=== PATIENT | female | born 1955 | race Hispanic/Latino ===

== ENCOUNTER 2018-03-01 13:17 | Inpatient (IN) | payer BC ==
[~2018-03-01] VITALS: Ht 152.4 cm; Wt 53.2 kg
[~2018-03-01 13:17] MED LIST: AZITHROMYCIN250 MG PO; CLONAZEPAM0.5 MG PO; CLONIDINE HCL0.1 MG PO; COREG12.5 MG PO; DIPHENHYDR12.5 MG/5 PO; HUMALOG; HYDRALAZINE HCL25 MG PO; Insulin Detemir SQ; LANTUS IV; LANTUS100 UNITS/ SC; LEVEMIR100 UNIT/1; LISINOPRIL10 MG PO; LISINOPRIL20 MG PO; NIFEDIPINE ER30 M1 PO; NIFEDIPINE ER60 M1 PO; SIMVASTATIN20 MG PO; TESSALON PERLE100 MG PO; Z.0.CLONAZEPAM1 MG PO; Z.2.METFORMIN HCL500 PO; [UNRECOGNIZED DRUG - OTHER] IV
[2018-03-01] MEDS ORDERED: SODIUM CHLORIDE 0.9% 1000ML 1,000 ML IV STA (13:19)
[2018-03-01] MEDS ORDERED: ONDANSETRON HCL INJ 2 MG/ML VIAL IV STA (13:19)
[2018-03-01] MEDS ORDERED: ASPIRIN 81 MG CHEW TAB PO ONE (13:30)
[2018-03-01 14:25] LABS: BASOPHILS % 0.3 % (0.0-1.0); EOSINOPHILS # (AUTO) 0.1 (0.0-0.4); EOSINOPHILS % 0.4 % (0.0-6.0); HEMATOCRIT 28.8 % (34.2-44.1); HEMOGLOBIN 9.7 g/dL (12.0-16.0); LYMPHOCYTES # (AUTO) 0.9 (1.0-3.2); LYMPHOCYTES % 7.4 % (18.0-39.1); MEAN CORPUSCULAR HEMOGLOBIN 32.6 pg (28-32); MEAN CORPUSCULAR HGB CONC 33.7 g/dL (31-35); MEAN CORPUSCULAR VOLUME 96.6 fL (81-99); MONOCYTES # (AUTO) 0.5 (0.2-0.8); MONOCYTES % 4.6 % (4.4-11.3); NEUTROPHILS % 86.8 % (38.7-80.0); PLATELET COUNT 228 x10e3/uL (140-360); RED BLOOD COUNT 2.98 x10e6/uL (3.6-5.1); RED CELL DISTRIBUTION WIDTH 13.9 % (11.7-14.4)
[2018-03-01] MEDS ORDERED: NICARDIPINE HCL SOLN 20 MG in SODIUM CHLORIDE 0.9% 250ML 200 ML IV STA (14:33)
[2018-03-01 14:36] LABS: INR 0.98; PROTHROMBIN TIME 13.9 seconds (11.9-14.5)
[2018-03-01] MEDS ORDERED: DILTIAZEM HCL VIAL 5 ML ONE (14:36)
[2018-03-01 14:37] LABS: PARTIAL THROMBOPLASTIN TIME 26.7 seconds (23.8-35.5)
[2018-03-01 14:47] LABS: ALBUMIN 3.9 g/dL (3.5-5.0); ALBUMIN/GLOBULIN RATIO 1.2 (0.8-2.0); ANION GAP 21.6 mmol/L (8-16); CREATININE, SERUM 3.86 mg/dL (0.57-1.11); MAGNESIUM 1.8 MG/DL (1.3-2.1); POTASSIUM 4.6 mmol/L (3.5-5.1)
[2018-03-01 14:49] LABS: CALCIUM 10.2 mg/dL (8.4-10.2)
[2018-03-01 15:10] LABS: CREATINE KINASE MB 1.3 ng/mL (0-5.0); THYROID STIMULATING HORMONE 1.362 uIU/mL (0.350-4.940)
--- NOTE | 2018-03-01 15:50 | Diagnostic Imaging Report ---
A single frontal view of the chest. HISTORY: Abdominal pain, nausea COMPARISON: Chest radiograph March 20, 2017 DISCUSSION: Portable technique, limits sensitivity of the exam. Multiple overlying monitoring leads and tubing. Soft tissue attenuation partially limits sensitivity of the exam. Tubes/Lines: Interval removal of the right approach dialysis catheter. Lungs and pleura: Diffusely increased pulmonary markings. No evidence of a consolidative pneumonia or pulmonary alveolar edema. No definite pleural effusion or pneumothorax is identified. Heart and mediastinum: The cardiac silhouette and central pulmonary vasculature appears enlarged. Bones: Diffusely decreased mineralization of the osseous structures limits bone detail. IMPRESSION: Findings compatible with volume overload resulting in central pulmonary vascular congestion and interstitial edema. Signed by: Dr. Puma Terrell D.O., M.M.M. on 03/01/2018 3:47 PM
[2018-03-01] MEDS ORDERED: PROMETHAZINE HCL (IM) 25 MG/ML VIAL IV PRN (16:15)
[2018-03-01] MEDS ORDERED: PROMETHAZINE 12.5MG/ NACL 0.9% 50 ML IV PRN (16:30)
--- NOTE | 2018-03-01 16:31 | Diagnostic Imaging Report ---
EXAMINATION: CT of the abdomen and pelvis with contrast. TECHNIQUE: Spiral CT images of the abdomen and pelvis were performed from the lung bases to the lesser trochanters after the intravenous administration of 100 cc of Isovue 370 and the oral administration of water. Coronal and sagittal reformatted images were obtained. COMPARISON: None. CLINICAL HISTORY:Abdominal pain, end-stage renal disease DISCUSSION: ABDOMEN/PELVIS: LOWER THORAX:Asymmetry of fibroglandular breast tissue left greater than right. Subsegmental atelectasis in the dependent portion of the lower lobes. Trace right pleural effusion. HEPATOBILIARY: 1.2 cm hyperattenuating lesion adjacent to the portal vein bifurcation (series 2 image 17); no additional focal hepatic lesion. Trace intrahepatic biliary ductal dilatation status post cholecystectomy. SPLEEN: No splenomegaly. PANCREAS: Subcentimeter low attenuating lesions in the pancreatic head may represent sidebranch IPMNs (coronal image 44 and 46). No peripancreatic inflammation. ADRENALS: No adrenal nodules. KIDNEYS/URETERS: No hydronephrosis, stones, or solid mass lesions. PELVIC ORGANS/BLADDER: The urinary bladder is unremarkable. The uterus is neutral in position with arcuate artery calcifications. No adnexal mass. PERITONEUM/RETROPERITONEUM: Trace free pelvic fluid average attenuation 15 Hounsfield units. No free air. LYMPH NODES: No pelvic sidewall, retroperitoneal, or mesenteric lymphadenopathy. VESSELS: The abdominal aorta, major branch vessels, and iliac arterial systems are patent with multifocal calcified and noncalcified atherosclerotic plaque. No aneurysmal dilatation. Portal vein, splenic vein, and central superior mesenteric vein are patent. GI TRACT: The large bowel is notable for scattered diverticula along the course of the sigmoid colon, without evidence of diverticulitis. The appendix is normal. There is no small bowel dilatation to suggest obstruction. BONES AND SOFT TISSUE: No focal soft tissue abnormalities. No osseous destructive lesions. IMPRESSION: No acute intra-abdominal or pelvic CT abnormalities. Trace pelvic ascites, likely reactive. Hyperattenuating lesion within the central liver likely represents a flash filling hemangioma. Definitive characterization with nonemergent CT of the abdomen with and without contrast (liver mass protocol) is suggested. Subcentimeter low-attenuation pancreatic lesions may represent cysts or side branch intraductal papillary mucinous neoplasia (IPMN). These lesions may also be further characterized by above recommended multiphase abdominal CT. Atherosclerotic vascular disease. Sigmoid diverticulosis without CT findings of diverticulitis. Asymmetry of fibroglandular breast tissue is likely due to patient positioning. Correlation with mammography is suggested if not recently performed. Signed by: Dr. Alhaji Rodriguez M.D. on 03/01/2018 4:28 PM
[2018-03-01 17:07] LABS: BILIRUBIN,URINE NEGATIVE (NEGATIVE); CLARITY,URINE CLEAR (CLEAR); COLOR,URINE YELLOW (YELLOW); KETONES,URINE 1+ (NEGATIVE); LEUKOCYTE ESTERASE ,URINE NEGATIVE (NEGATIVE); NITRITE,URINE NEGATIVE (NEGATIVE); PROTEIN,URINE DIPSTICK 3+ (NEGATIVE); URINE UROBILINOGEN 0.2 mg/dL (0.2 - 1)
[2018-03-01] MEDS ORDERED: HYDRALAZINE HCL 20 MG/ML VIAL IV PRN (17:15)
[2018-03-01 17:22] LABS: BACTERIA,URINE RARE /HPF; EPITHELIAL CELLS,URINE RARE /LPF
[2018-03-01] MEDS ORDERED: BENZONATATE 100 MG CAP PO PRN (17:30)
[2018-03-01] MEDS ORDERED: ACETAMINOPHEN 325 MG TAB PO PRN (17:45)
[2018-03-01] MEDS: LABETALOL HCL 5 MG/ML 20ML VIAL IV PRN (17:47)
--- NOTE | 2018-03-01 18:16 | History and Physical ---
HISTORY OF PRESENT ILLNESS: This is a 62-year-old female who has a past medical history positive for hypertension, diabetes, end-stage renal disease on dialysis. She came to the hospital complaining of vomiting. She was found to have new-onset atrial fibrillation with rapid ventricular response, which converted to sinus rhythm. Blood pressure was found to be extremely elevated in the 200 range. Patient was admitted to the hospital. The patient will have dialysis. REVIEW OF SYSTEMS CARDIOVASCULAR: No chest pain. She did have palpitations, which are resolved. RESPIRATORY: No shortness of breath. No cough. GASTROINTESTINAL: She had nausea and vomiting. No abdominal pain. No diarrhea. GENITOURINARY: No frequency. No dysuria. ALLERGIES: SHE IS NOT ALLERGIC TO ANY MEDICATION ACCORDING TO HER. PAST MEDICAL HISTORY: Positive for end-stage renal disease, diabetes, hypertension. SOCIAL HISTORY: She claims that she does not smoke and does not drink. PHYSICAL EXAMINATION HEART: Regular rhythm. Normal S1 and S2 sounds. LUNGS: Clear bilaterally. ABDOMEN: Soft. Nontender and nondistended. No visceromegaly. EXTREMITIES: No evidence of cyanosis, edema or trauma. VITALS: Blood pressure 164/60. Temperature 99.2. Heart rate is 68 per minute. Respiratory rate is [address] of the abdomen and pelvis showed the patient has no acute intra-abdominal or pelvic CT abnormalities. Trace pelvic ascites, likely reactive. Hyperattenuating lesion within the central liver likely representing a flash filling hemangioma. Definitive characterization with nonemergent CT of the abdomen with and without contrast is suggested. A 2-cm low-attenuation pancreatic lesion may represent side branch intraductal papillary mucinous neoplasia. The lesion may also be further characterized by the recommend multiphase abdominal CT. Atherosclerotic vascular disease. Sigmoid diverticulosis without diverticulitis. Asymmetric fibroglandular tissue is likely due to patient positioning. Correlation with mammography is suggested if not recently performed. On the chest x-ray, we have findings compatible with volume overload resulting in central pulmonary vascular congestion and interstitial edema. FINAL IMPRESSION 1. Atrial fibrillation with tachycardia which is resolved. 2. Uncontrolled diabetes mellitus, type 2, with end-stage renal disease. 3. End-stage renal disease on dialysis. 4. Vomiting. 5. Dialysis. PLAN OF TREATMENT: We are going to restart her on her home medications which include carvedilol 25 mg twice a day, clonidine 0.2 mg twice a day, hydralazine 100 mg 3 times a day. We are going to continue monitoring blood sugar a.c. and nightly. She is going to be on a diabetic and renal diet. She is going to be on promethazine 12.5 mg IV q.4 h. as needed for nausea and vomiting, labetalol 5 mg IV q.6 h. as needed for hypertension, lisinopril 40 mg daily, nifedipine 60 mg twice a day, simvastatin 20 mg daily, Zofran 4 mg IV q.4 h. as needed. We are going to consult Dr. De Jesus for cardiology. She is going to be on telemetry. We are going to order an echocardiogram and TSH for further evaluation of the episodes of atrial fibrillation. We are going to also get a renal consult with Dr. Tee because the patient is a dialysis patient. Gastroenterology consult with Dr. Haider Bravo because of the lesions in the liver and the pancreas. We are going to also do a CT of the abdomen with mass protocol. Job#: [id number]
[2018-03-01] MEDS ORDERED: HYDRALAZINE HCL 20 MG/ML VIAL IV ONE ×2 (19:17→19:30)
[2018-03-01] MEDS ORDERED: HUMALOG100 UNIT/3 SQ (20:50)
[2018-03-01] MEDS ORDERED: LEVEMIR100 UNIT/1 SQ (20:50)
[2018-03-01] MEDS ORDERED: CLONIDINE HCL0.2 MG PO (20:50)
[2018-03-01] MEDS: NIFEDIPINE CR 30 MG TAB PO SCH (20:51)
[2018-03-01] MEDS: SIMVASTATIN 20 MG TAB PO SCH (20:51)
[2018-03-01] MEDS: INSULIN LISPRO 100 UNIT/1 ML 3ML VIAL SQ SCH (21:00)
[2018-03-01] MEDS: HYDRALAZINE HCL 25 MG TAB PO SCH (21:31)
[2018-03-01] MEDS ORDERED: INSULIN REGULAR, HUMAN 100 UNIT/1 ML 3ML VIAL ONE (21:44)
[2018-03-01] MEDS ORDERED: DEXTROSE 50% SYRINGE 50 ML IV PRN (21:45)
[2018-03-01] MEDS: INSULIN REGULAR, HUMAN 100 UNIT/1 ML 3ML VIAL SQ SCH (21:46)
[2018-03-01 23:30] VITALS: BP 178/77
[2018-03-01 23:56] LABS: CREATINE KINASE MB 4.8 ng/mL (0-5.0)
[2018-03-02] VITALS (15 sets, daily range): BP systolic 130–206; BP diastolic 60–88
[2018-03-02 05:36] LABS: CHOL/HDL RATIO 2.7 (3.0-3.6)
[2018-03-02 05:49] LABS: CREATINE KINASE MB 2.8 ng/mL (0-5.0)
[2018-03-02] MEDS: ONDANSETRON HCL INJ 2 MG/ML VIAL IV PRN (05:49)
[2018-03-02] MEDS: LABETALOL HCL 5 MG/ML 20ML VIAL IV PRN (05:49)
[2018-03-02] MEDS: INSULIN LISPRO 100 UNIT/1 ML 3ML VIAL SQ SCH ×3 (07:30→21:00)
[2018-03-02] MEDS: HYDRALAZINE HCL 25 MG TAB PO SCH ×3 (08:29→21:00)
[2018-03-02] MEDS: LISINOPRIL 20 MG TAB PO SCH (08:30)
[2018-03-02] MEDS: NIFEDIPINE CR 30 MG TAB PO SCH ×2 (08:30→17:00)
[2018-03-02] MEDS: CARVEDILOL 12.5 MG TAB PO SCH ×2 (08:30→17:00)
[2018-03-02] MEDS ORDERED: NON-FORMULARY MEDICATION (Nifedipine (Nifedipine Er) 60 MG) PO SCH (09:00)
[2018-03-02] MEDS ORDERED: LISINOPRIL 10 MG TAB PO SCH (09:00)
[2018-03-02] MEDS ORDERED: CLONIDINE HCL 0.1 MG TAB PO SCH ×2 (09:00→14:00)
--- NOTE | 2018-03-02 09:29 | Consultation ---
DATE OF CONSULTATION: March 02, 2018 RENAL CONSULTATION REASON FOR CONSULTATION: End-stage renal disease. HISTORY OF PRESENT ILLNESS: A 62-year-old female with end-stage renal disease, hypertension, diabetes, who underwent hemodialysis on February 28, 2018, and was doing well until the day of admission when she developed nausea and vomiting. The patient was found to have atrial fibrillation with rapid ventricular rate, and was converted to sinus rhythm. The patient was admitted to the hospital, and this time she has no further palpitations, but continues to have nausea and anorexia. REVIEW OF SYSTEMS: As above. No chest pain. No shortness of breath. No swelling. No abdominal pain. All other systems negative. PAST MEDICAL HISTORY 1. End-stage renal disease, on hemodialysis on Monday, and Monday. 2. Diabetes. 3. Hypertension. PAST SURGICAL HISTORY 1. Left upper extremity AV fistula. 2. Bladder surgery. SOCIAL HISTORY: No tobacco. No alcohol. No IV drugs. FAMILY HISTORY: No family history of kidney disease. ALLERGIES: NO KNOWN DRUG ALLERGIES. CURRENT MEDICATIONS: See list. PHYSICAL EXAMINATION VITALS: Blood pressure 206/88, heart rate 81, respiratory rate 20, temperature 99.2. GENERAL: No apparent distress. HEENT: Oropharynx clear. No scleral icterus. No papilledema. NECK: Supple. No elevation of jugular venous pressure. No lymphadenopathy. CHEST: Clear to auscultation anteriorly bilaterally. CARDIOVASCULAR: Regular rate and rhythm. No murmurs, rubs or gallops. ABDOMEN: Soft. Positive bowel sounds. No tenderness. No rebound. EXTREMITIES: No edema. No clubbing. No cyanosis. SKIN: Warm. LABS: White count 11.49, hemoglobin 9.7, hematocrit 28.8, and platelets 228,000. Sodium 133, potassium 4.6, chloride 96, BUN 24, creatinine 3.86. ASSESSMENT AND PLAN 1. End-stage renal disease: Will plan for hemodialysis in the morning and continue Monday, and Monday. 2. Anemia secondary to chronic kidney disease: Will start Epogen. 3. Hypertension: Blood pressure is elevated. Will give morning meds now. Change clonidine to q.8 h. 4. Nausea and vomiting: Gastroenterology has been consulted. 5. Atrial fibrillation with rapid ventricular response: Per cardiology. The patient is back in sinus rhythm. Job#: [id number] RI
[2018-03-02] MEDS ORDERED: HEPARIN 25,000 UNIT/D5W 250ML 250 ML IV SCH (10:30)
--- NOTE | 2018-03-02 11:01 | Consultation ---
DATE OF CONSULTATION: March 02, 2018 CARDIOLOGY CONSULTATION REASON FOR CONSULTATION: Atrial fibrillation with rapid ventricular response. HISTORY OF PRESENT ILLNESS: This is a 62-year-old woman with a history of diabetes mellitus, hypertension, and end-stage renal disease, on hemodialysis, who presents with complaints of nausea and vomiting. The patient states she was in her usual state of health until Monday when she developed nausea and vomiting. She was unable to tolerate any significant oral intake. Her symptoms worsened yesterday, so she presented to the ER for further evaluation. The patient denies any chest pain or shortness of breath, but does note she began developing palpitations yesterday. She denied any edema, orthopnea, PND, or lightheadedness. She only has shortness of breath when prior to dialysis. REVIEW OF SYSTEMS: Negative except as per HPI. PAST MEDICAL HISTORY: Diabetes mellitus, hypertension, end-stage renal disease, on hemodialysis on Monday, and Monday. PAST SURGICAL HISTORY: Cholecystectomy, left upper extremity AV fistula, bladder surgery. ALLERGIES: NO KNOWN DRUG ALLERGIES. MEDICATIONS: Please see MAR. SOCIAL HISTORY: No tobacco, alcohol or illicit drugs. FAMILY HISTORY: Pertinent for sister with myocardial infarction. PHYSICAL EXAMINATION VITALS: Temperature 100.8 degrees, pulse 81, respiratory rate 14, blood pressure 108/74, oxygen saturation 96% on room air. GENERAL: A well-developed, well-nourished woman in no acute distress. HEENT: Normocephalic and atraumatic. Pupils equal. No scleral icterus. NECK: Supple. No thyromegaly or cervical lymphadenopathy. No carotid bruits. LUNGS: Crackles in bilateral bases. Otherwise, clear to auscultation. CARDIOVASCULAR: Normal rate. Regular rhythm. No murmur. Normal S1 and S2. ABDOMEN: Soft and nontender. EXTREMITIES: No edema. NEURO: Nonfocal exam. LABS: WBC 11.49, hemoglobin 9.7, hematocrit 28.8, and platelets 228,000. Sodium 138, potassium 4.6, chloride 96, CO2 25, BUN 24, creatinine 3.86. Troponin 3.397. Cholesterol 147, triglycerides 134, LDL 66, HDL 54. EKG #1 AFib with RVR. Marked S/T abnormality. Possible inferolateral subendocardial injury. EKG #2 is sinus rhythm with nonspecific S/T and T-wave abnormalities. IMPRESSION 1. [id number] myocardial infarction. 2. Paroxysmal atrial fibrillation with rapid ventricular response. 3. Nausea and vomiting. 4. End-stage renal disease, on hemodialysis. 5. Hypertension. 6. Diabetes mellitus. RECOMMENDATIONS: The patient will be made n.p.o. Cardiac catheterization this afternoon. Echocardiogram has been ordered and is pending. Discontinue nifedipine. We will start diltiazem instead for rate control if her echocardiogram is normal. Volume management per nephrology given end-stage renal disease. She would likely benefit from further ultrafiltration. Heparin drip in the meantime. The patient will need to be started on anticoagulation for CVA prophylaxis after cardiac catheterization has been done. Monitor the patient on telemetry in the meantime. Thank you for this consult. We will continue to follow. Job#: [id number] BRADLEY FRIEDMAN
[2018-03-02] MEDS: INSULIN REGULAR, HUMAN 100 UNIT/1 ML 3ML VIAL SQ SCH (11:30)
[2018-03-02 11:41] LABS: HEMATOCRIT 26.1 % (34.2-44.1); HEMOGLOBIN 8.7 g/dL (12.0-16.0); MEAN CORPUSCULAR HEMOGLOBIN 32.7 pg (28-32); MEAN CORPUSCULAR HGB CONC 33.3 g/dL (31-35); MEAN CORPUSCULAR VOLUME 98.1 fL (81-99); PLATELET COUNT 219 x10e3/uL (140-360); RED BLOOD COUNT 2.66 x10e6/uL (3.6-5.1); RED CELL DISTRIBUTION WIDTH 14.7 % (11.7-14.4)
[2018-03-02 11:48] LABS: INR 1.09; PROTHROMBIN TIME 15.1 seconds (11.9-14.5)
[2018-03-02 11:49] LABS: PARTIAL THROMBOPLASTIN TIME 28.1 seconds (23.8-35.5)
[2018-03-02 13:17] LABS: LYMPHOCYTES % (MANUAL) 13 % (19-48); MONOCYTES % (MANUAL) 7 % (3.4-9.0); NEUTROPHILS % (MANUAL) 80 % (40-74)
[2018-03-02 13:18] LABS: ANISOCYTOSIS SLIGHT; HYPOCHROMASIA SLIGHT; PLATELET ESTIMATE ADEQUATE; PLATELET MORPHOLOGY COMMENT NORMAL; RBC MORPHOLOGY COMMENT NORMAL
[2018-03-02] MEDS ORDERED: CLONIDINE HCL 0.2 MG TAB PO SCH ×2 (14:00→22:00)
[2018-03-02 14:27] LABS: CREATINE KINASE MB 1.4 ng/mL (0-5.0)
[2018-03-02] MEDS ORDERED: DEXTROSE 50% SYRINGE 50 ML IV PRN ×2 (16:45)
[2018-03-02] MEDS ORDERED: MIDAZOLAM HCL 2 MG/2 ML VIAL ONE (17:36)
[2018-03-02] MEDS ORDERED: IOPAMIDOL 370 MG/ML 200 ML INFUS..BTL INJ ONE (17:36)
[2018-03-02] MEDS ORDERED: LIDOCAINE HCL 2% LOCAL 20 ML VIAL ONE (17:36)
[2018-03-02] MEDS ORDERED: HEPARIN SOD/SOD CHLORIDE 2,000 ML ONE (17:36)
[2018-03-02] MEDS ORDERED: FENTANYL CITRATE/PF 100MCG/2 ML INJ ONE (17:36)
[2018-03-02] MEDS ORDERED: SODIUM CHLORIDE 0.9% 1000ML 1,000 ML ONE (17:37)
--- NOTE | 2018-03-02 18:32 | Progress Note ---
DATE: INTERNAL MEDICINE PROGRESS NOTE SUBJECTIVE: Patient came here with atrial fibrillation with rapid ventricular response. Troponins are high. She is going to have a cardiac cath by Dr. De Jesus today. PHYSICAL EXAM VITAL SIGNS: Blood pressure 144/65, temperature 98.9, heart rate 75 per minute, respiratory rate 18 per minute. HEART: Regular rhythm. Normal S1, S2 sounds. LUNGS: Clear bilaterally. ABDOMEN: Soft. EXTREMITIES: Show no evidence of cyanosis or hematoma. BLOOD WORK: CBC with white blood count 12.19, hemoglobin 8.7, hematocrit 26.1, platelet count 219,000. On the blood glucose 148, troponin is elevated at 2.881. On the complete metabolic panel; sodium 138, potassium 4.6, chloride 96, CO2 25, BUN 24, creatinine 3.86, and glucose 309. MEDICATION: The patient is taking also the following medications 1. Heparin drip. 2. Promethazine 12.5 mg IV q.4 hours as needed. 3. Tylenol 625 mg q.4 hours as needed for pain or fever. 4. Tessalon 200 mg 3 times a day as needed for cough. 5. Carvedilol 25 mg twice a day. 6. Clonidine 0.2 mg q.8 hours. 7. Continue with Epogen 5000 units on Tuesdays, , and Saturdays. 8. Continue with hydralazine 100 mg 3 times a day. 9. Continue monitoring blood sugar a.c. and h.s. 10. Continue labetalol 5 mg IV q.6 hours as needed for hypertension. 11. Lisinopril 40 mg daily. 12. Nifedipine 60 mg twice a day. 13. Zofran 4 mg IV q.4 hours as needed. 14. Simvastatin 20 mg at bedtime. 15. We are going to also start her on aspirin 81 mg daily. FINAL IMPRESSION 1. Atrial fibrillation with rapid ventricular response of new onset. 2. Elevated troponins rule out myocardial infarction. 3. End-stage renal disease, on dialysis. 4. Uncontrolled diabetes mellitus type 2 with end-stage renal disease. 5. He is on dialysis. 6. Hypertension with end-stage renal disease. 7. Vomiting, which is resolved. PLAN OF TREATMENT: Cardiac cath today and continue rest of medication with hemodialysis. Also she does have lesions in the liver and the pancreas, which are going to be investigated a little more. Dr. Haider Bravo gastroenterology has been consulted on the case for those lesions and we are going to later on determine if what type of lesion she has right now. We are going to do the cardiac cath just to make sure she does not have any evidence of any coronary artery disease. I just communicate with the patient with at the bedside. Job#: [id number] BELINDA
--- NOTE | 2018-03-02 19:08 | Operative Report ---
DATE OF PROCEDURE: March 02, 2018 INDICATION: Non-ST segment elevation myocardial infarction. PROCEDURES PERFORMED 1. Left heart catheterization, selective coronary angiography. 2. Percutaneous transluminal coronary angioplasty and stent placement to the mid left anterior descending artery. 3. Deployment of right groin Angio-Seal. COMPLICATIONS: None. RECOMMENDATIONS : Dual-antiplatelet therapy for at least 1 year, AFib workup. PROCEDURE IN DETAIL: Access obtained in the right femoral artery. A 6-[place] sheath was placed. 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 Mid left anterior descending artery tubular 70% stenosis, circumflex mild disease. A decision was made to intervene on the left anterior descending artery. Patient received 6000 units of intravenous heparin as well as oral Brilinta and intracoronary Integrilin bolus. Left main was cannulated using an XP 3.06-[place] Citizen guiding catheter. A short run-through wire was passed across the lesion for support, primary stent, 2.5 x 22 mm Resolute Festus at 20 atmospheres. Excellent end result, less than 10% residual stenosis, EDIS III flow, no complications. Right groin sheath was repaired using an Angio-Seal. Patient was passed from operative floor in stable condition. Job#: [id number] PKU
[2018-03-02] MEDS ORDERED: NON-FORMULARY MEDICATION (Insulin Detemir (Levemir) 20 UNITS) SQ SCH (21:00)
[2018-03-02] MEDS ORDERED: INSULIN LISPRO 100 UNIT/1 ML 3ML VIAL SQ SCH (21:00)
[2018-03-02] MEDS: SIMVASTATIN 20 MG TAB PO SCH (21:00)
[2018-03-02] MEDS: INSULIN DETEMIR 100 UNIT/ML PEN SQ SCH (21:00)
[2018-03-02] MEDS: CLONIDINE HCL 0.1 MG TAB PO SCH (22:00)
[2018-03-03 04:30] VITALS: BP 184/75
[2018-03-03 05:33] LABS: BASOPHILS # (AUTO) 0.1 (0.0-0.1); BASOPHILS % 0.5 % (0.0-1.0); EOSINOPHILS # (AUTO) 0.1 (0.0-0.4); EOSINOPHILS % 1.1 % (0.0-6.0); HEMATOCRIT 26.1 % (34.2-44.1); HEMOGLOBIN 8.5 g/dL (12.0-16.0); LYMPHOCYTES # (AUTO) 1.2 (1.0-3.2); LYMPHOCYTES % 10.3 % (18.0-39.1); MEAN CORPUSCULAR HGB CONC 32.6 g/dL (31-35); MEAN CORPUSCULAR VOLUME 98.1 fL (81-99); MONOCYTES # (AUTO) 1.4 (0.2-0.8); MONOCYTES % 12.3 % (4.4-11.3); NEUTROPHILS # (AUTO) 8.5 (2.1-6.9); NEUTROPHILS % 75.2 % (38.7-80.0); PLATELET COUNT 205 x10e3/uL (140-360); RED BLOOD COUNT 2.66 x10e6/uL (3.6-5.1); RED CELL DISTRIBUTION WIDTH 15.2 % (11.7-14.4)
[2018-03-03 05:53] LABS: ALBUMIN 3.1 g/dL (3.5-5.0); ALBUMIN/GLOBULIN RATIO 1.2 (0.8-2.0); ANION GAP 18.1 mmol/L (8-16); CALCIUM 9.1 mg/dL (8.4-10.2); CREATININE, SERUM 7.18 mg/dL (0.57-1.11); POTASSIUM 4.1 mmol/L (3.5-5.1)
[2018-03-03] MEDS: CLONIDINE HCL 0.1 MG TAB PO SCH ×3 (05:57→21:07)
[2018-03-03] MEDS ORDERED: NON-FORMULARY MEDICATION (Insulin Lispro (Humalog) 8 UNITS) SQ SCH (07:30)
[2018-03-03] MEDS: INSULIN LISPRO 100 UNIT/1 ML 3ML VIAL SQ SCH ×7 (07:30→20:53)
[2018-03-03 07:54] VITALS: BP 159/65
[2018-03-03 08:27] VITALS: BP 159/65
[2018-03-03] MEDS: TICAGRELOR 90 MG TABLET PO SCH ×2 (09:00→21:06)
[2018-03-03] MEDS: NIFEDIPINE CR 30 MG TAB PO SCH ×2 (09:00→17:42)
[2018-03-03] MEDS: LISINOPRIL 20 MG TAB PO SCH (09:00)
[2018-03-03] MEDS ORDERED: ASPIRIN 325 MG TAB PO SCH (09:00)
[2018-03-03] MEDS: CARVEDILOL 12.5 MG TAB PO SCH ×2 (09:00→17:42)
[2018-03-03] MEDS ORDERED: EPOETIN ALFA 10000 UNIT/ML VIAL SC SCH (09:00)
[2018-03-03] MEDS: HYDRALAZINE HCL 25 MG TAB PO SCH ×3 (09:00→21:07)
[2018-03-03] MEDS: ASPIRIN 81 MG CHEW TAB PO SCH (09:00)
[2018-03-03 11:45] VITALS: BP 195/83
[2018-03-03] MEDS: LABETALOL HCL 5 MG/ML 20ML VIAL IV PRN (12:15)
--- NOTE | 2018-03-03 13:48 | Diagnostic Imaging Report ---
EXAM: CT Abdomen and Pelvis WITHOUT and WITH contrast INDICATION: Abnormal CT scan \S\LIVER/PANCREOUS PROTOCOL, PT TO HAVE DIALYSIS AFTER PROCEDU \S\[id number] \S\1225 \S\N COMPARISON: CT 03/01/2018 TECHNIQUE: Abdomen and pelvis were scanned utilizing a multidetector helical scanner from the lung base to the pubic symphysis before and after administration of IV contrast. Coronal and sagittal reformations were obtained. Liver mass protocol was performed. Scan was performed pre-, arterial, portal venous, and 5 minute delayed phase. IV CONTRAST: 100 mL of Isovue-370 ORAL CONTRAST: Gastrografin COMPLICATIONS: None RADIATION DOSE: Total DLP: 527.2 mGy*cm Estimated effective dose: (DLP x 0.015 x size factor) mSv CTDIvol has been reviewed. It is below the limits set by the Radiation Protocol Committee (RPC). FINDINGS: LINES and TUBES: None. LOWER THORAX: Mild dependent atelectasis. HEPATOBILIARY: Previously noted hyperattenuating liver lesion is not appreciated. Finding suggests the previous lesion represented a perfusional abnormality. No focal hepatic lesions. No biliary ductal dilation. GALLBLADDER: Absent SPLEEN: No splenomegaly. PANCREAS: A 4 mm cystic bulge of the pancreatic duct in the head may represent a sidebranch IPMN (series 3 image 18). No focal solid masses or ductal dilatation. ADRENALS: No adrenal nodules KIDNEYS/URETERS: Kidneys enhance symmetrically. No hydronephrosis. No cystic or solid mass lesions. No stones. GI TRACT: No abnormal distention, wall thickening, or evidence of bowel obstruction. Increased circumferential wall thickening of the duodenum and ascending colon. Sigmoid colonic diverticula without evidence of diverticulitis. Appendix is normal. PELVIC ORGANS/BLADDER: Unremarkable. LYMPH NODES: No lymphadenopathy. VESSELS: There is moderate atherosclerotic disease in the aorta and major arterial branches. PERITONEUM / RETROPERITONEUM: No free air or fluid. BONES: There are degenerative changes in the lumbar spine. SOFT TISSUES: Asymmetric prominence of the left breast soft tissues. IMPRESSION: 1. No liver lesions. 2. Increased duodenal and ascending colonic wall thickening, likely infectious or inflammatory. 3. Stable subcentimeter low attenuating pancreatic lesion in the head may represent a sidebranch IPMN. Recommend follow up MRI in 12 months. 4. Asymmetric prominence of the left breast soft tissues. Recommend correlation with mammogram. Signed by: DR. José House MD on 03/03/2018 1:45 PM
--- NOTE | 2018-03-03 15:11 | Progress Note ---
DATE: INTERNAL MEDICINE PROGRESS NOTE SUBJECTIVE: Patient is doing well. PHYSICAL EXAMINATION VITAL SIGNS: Blood pressure 195/83, temperature 97.2, heart rate 66 per minute, respiratory rate is 14 per minute, oxygen saturation 100%. HEART: Regular rhythm. Normal S1, S2 sounds. LUNGS: Clear bilaterally. ABDOMEN: Soft. EXTREMITIES: Show no evidence of cyanosis, edema, or trauma. LABORATORY DATA: On the BMP; sodium 137, potassium 4.1, chloride 95, CO2 of 28, BUN 49, creatinine 7.18, glucose 55. On the CBC; white blood count 11,200, hemoglobin 8.5, hematocrit 26.1, platelet count 205,000. PT 15.1, PTT 28.1, INR is 1.09. AST 36, ALT 24, total bilirubin 0.5, alkaline phosphatase 128. Patient did have a cardiac catheterization, which showed carotid stenosis on one of the branches of LAD. She had a stent placed there by Dr. De Jesus. FINAL IMPRESSION 1. Coronary artery disease with unstable angina. 2. Atrial fibrillation with tachycardia. 3. Uncontrolled diabetes mellitus type 2 with end-stage renal disease. 4. End-stage renal disease, on dialysis. 5. Uncontrolled hypertension with end-stage renal disease. 6. Vomiting, which is resolving. 7. Dialysis. PLAN OF TREATMENT: Continue promethazine q.4 hours as needed for vomiting along with Zofran 4 mg IV q.4 hours as needed, Tessalon 200 mg 3 times a day, carvedilol 25 mg twice a day, nifedipine 60 mg twice a day. Continue monitoring blood sugar a.c. and h.s. Continue diabetic renal diet. Continue Humalog 8 units before meals. Continue with simvastatin 20 mg daily, labetalol 5 mg IV q.6 hours as needed for hypertension and 50 IV push as needed for hypoglycemia, aspirin 81 mg daily, hydralazine 100 mg 3 times a day, Hytrin 10 mg daily because of uncontrolled hypertension. Continue also Tylenol 325 mg q.4 hours as needed for pain or fever, clonidine 0.1 mg q.8 hours as needed for hypertension, ticagrelor 90 mg p.o. twice a day, lisinopril 40 mg daily, Epogen 5000 units on Monday, , and Monday on dialysis days, and finally Levemir 20 units at bedtime. Job#: [id number] PKU
[2018-03-03 16:47] VITALS: BP 194/84
[2018-03-03] MEDS ORDERED: SODIUM CHLORIDE 0.9% 50ML 50 ML ONE (19:49)
[2018-03-03] MEDS ORDERED: IOPAMIDOL 370 MG/ML 200 ML INFUS..BTL INJ ONE (19:50)
[2018-03-03] MEDS: ONDANSETRON HCL INJ 2 MG/ML VIAL IV PRN (19:59)
[2018-03-03 20:46] VITALS: BP 197/80
[2018-03-03] MEDS: INSULIN DETEMIR 100 UNIT/ML PEN SQ SCH (20:53)
[2018-03-03] MEDS ORDERED: TERAZOSIN HCL 5 MG CAP PO SCH (21:00)
[2018-03-03] MEDS: SIMVASTATIN 20 MG TAB PO SCH (21:07)
[2018-03-03] MEDS ORDERED: PANTOPRAZOLE 40 MG 10ML VIAL IV STA (23:41)
[2018-03-04] VITALS: BP 197/80
[2018-03-04 01:37] VITALS: BP 109/55
[2018-03-04 05:23] LABS: BASOPHILS % 0.3 % (0.0-1.0); EOSINOPHILS % 0.4 % (0.0-6.0); HEMATOCRIT 24.2 % (34.2-44.1); HEMOGLOBIN 8.1 g/dL (12.0-16.0); LYMPHOCYTES # (AUTO) 0.8 (1.0-3.2); MEAN CORPUSCULAR HEMOGLOBIN 32.8 pg (28-32); MEAN CORPUSCULAR HGB CONC 33.5 g/dL (31-35); MONOCYTES # (AUTO) 1.1 (0.2-0.8); MONOCYTES % 10.9 % (4.4-11.3); NEUTROPHILS % 79.8 % (38.7-80.0); PLATELET COUNT 200 x10e3/uL (140-360); RED BLOOD COUNT 2.47 x10e6/uL (3.6-5.1); RED CELL DISTRIBUTION WIDTH 15.2 % (11.7-14.4)
[2018-03-04] MEDS: CLONIDINE HCL 0.1 MG TAB PO SCH (05:53)
[2018-03-04 05:54] VITALS: BP 160/72
[2018-03-04] MEDS: INSULIN LISPRO 100 UNIT/1 ML 3ML VIAL SQ SCH ×4 (07:30→12:12)
[2018-03-04 08:54] VITALS: BP 173/75
[2018-03-04] MEDS ORDERED: PANTOPRAZOLE 40 MG 10ML VIAL IV SCH (09:00)
[2018-03-04] MEDS ORDERED: TICAGRELOR 90 MG TABLET PO SCH (09:00)
[2018-03-04] MEDS: NIFEDIPINE CR 30 MG TAB PO SCH (09:00)
[2018-03-04] MEDS: TICAGRELOR 90 MG TABLET PO SCH (09:09)
[2018-03-04] MEDS: ASPIRIN 81 MG CHEW TAB PO SCH (09:09)
[2018-03-04] MEDS: CARVEDILOL 12.5 MG TAB PO SCH (09:09)
[2018-03-04] MEDS: LISINOPRIL 20 MG TAB PO SCH (09:09)
[2018-03-04] MEDS: HYDRALAZINE HCL 25 MG TAB PO SCH (09:09)
--- NOTE | 2018-03-04 09:52 | Progress Note ---
DATE: March 03, 2018 CARDIOLOGY PROGRESS NOTE SUBJECTIVE: Patient is without any complaint. She does endorse some fatigue; however, feeling better this morning. She endorses some shortness of breath upon exertion, but otherwise denies any chest pain or palpitations. OBJECTIVE VITAL SIGNS: Temperature 97.6, pulse 73, respiratory rate 18, blood pressure 197/80, oxygen saturation 100% on 2 liters nasal cannula. GENERAL: Alert and oriented x3, resting comfortably in bed, does not appear to be in any acute distress. NECK: Supple. No JVD noted. LUNGS: Diminished breath sounds posterior lower lobes with fine crackles. CARDIOVASCULAR: Regular rate and rhythm. No murmurs. Normal S1, S2. ABDOMEN: Soft, nontender. EXTREMITIES: Lower extremities, no edema. CARDIOVASCULAR MEDICATIONS 1. Clonidine 0.1 mg p.o. q.8 hours. 2. Simvastatin 20 mg p.o. h.s. 3. Hydralazine 100 mg p.o. t.i.d. 4. Nifedipine 60 p.o. b.i.d. 5. Coreg 25 p.o. b.i.d. 6. Labetalol 5 mg q.6 hours p.r.n. for hypertension. 7. Aspirin 81 mg p.o. daily. 8. Lisinopril 40 mg p.o. daily. LABS: WBC 11.27, hemoglobin 8.5, hematocrit 26.6, platelets 205. Sodium 137, potassium 4.1, BUN 49, creatinine 7.18, glucose 55. AST 36, ALT 24, albumin 3.1, total cholesterol 142, LDL 59. CT of the abdomen from 03/03/2018 with no liver lesion and increased duodenal and ascending colonic wall thickness, likely infectious or inflammatory, stable subcentimeter low attenuation pancreatic lesion in the head, may represent side branch of IPMN. Recommend an MRI in 12 months. Asymmetric prominence of the left breast soft tissue, recommend correlation with a mammogram. IMPRESSION 1. Non-ST elevation myocardial infarction, status post left heart catheterization on 03/02/2018 with an left anterior descending stent. 2. Coronary artery disease. 3. Paroxysmal atrial fibrillation with rapid ventricular response. 4. Nausea and vomiting. 5. End-stage renal disease, on hemodialysis. 6. Hypertension. 7. Diabetes mellitus. RECOMMENDATIONS: Continue with the above-listed cardiac medication. Recent echocardiogram revealed left ventricular ejection fraction of 71% with left atrium enlargement and moderate mitral regurgitation and moderate tricuspid regurgitation, left ventricular systolic pressures of 40.78. Continue hemodialysis and volume management per bending machine operator. Patient will need long-term monitoring as outpatient. Consider internal loop recorder. Continue with dual-antiplatelet therapy. Medications adjusted and Brilinta added to the medications above. Monitor blood pressure closely. Will need follow up with cardiology in 1 week upon discharge. We will continue to monitor very closely. Dictated by: Homa Payan NP Job#: [id number] [facility]
[2018-03-04 10:30] VITALS: BP 173/75
--- NOTE | 2018-03-04 12:16 | Progress Note ---
DATE: CARDIOLOGY PROGRESS NOTE SUBJECTIVE: Patient is without any new complaints this morning. She states that she feels a lot better. Does endorse some shortness of breath especially with exertion. Denies any chest pain. OBJECTIVE VITAL SIGNS: Temperature 99.0, pulse 70, respiratory rate 18, blood pressure 172/75, oxygen saturation 99% on 2 liters nasal cannula. GENERAL: Alert and oriented x3, resting comfortably in bed, does not appear to be in any acute distress. NECK: Supple. No JVD noted. CARDIOVASCULAR: Regular rate and rhythm. Diastolic murmur present. Normal S1, S2. S4 noted. LUNGS: Diminished breath sounds posterior lower lobes. No crackles. ABDOMEN: Soft, nontender. LOWER EXTREMITIES: No edema. CARDIOVASCULAR MEDICATIONS 1. Aspirin 81 mg p.o. daily. 2. Lisinopril 40 p.o. daily. 3. Hydralazine 100 mg p.o., t.i.d. 4. Coreg 25 p.o., b.i.d. 5. Clonidine 0.1 p.o., q.8 hours. 6. Simvastatin 20 mg p.o., h.s. 7. Labetalol 5 mg every 6 hours IV push for hypertension. 8. Nifedipine 60 mg p.o., b.i.d. LABS: WBC 10, hemoglobin 8.1, hematocrit 24.2, platelets 200. IMPRESSION 1. Non-ST elevation myocardial infarction, status post left heart cath on March 02, with a left anterior descending artery stent. 2. Coronary artery disease. 3. Paroxysmal atrial fibrillation with rapid ventricular response, remains in sinus rhythm at this time. 4. Nausea and vomiting. 5. End-stage renal disease, on hemodialysis. 6. Hypertension, uncontrolled. 7. Diabetes mellitus. RECOMMENDATIONS: Continue with the above-listed cardiac medications. Antihypertensives adjusted. Once blood pressure is improved, patient may be discharge with follow up with cardiology in the next one week. Continue hemodialysis. Patient will need a long-term monitoring as outpatient, consider internal loop recorder. Continue dual-antiplatelet therapy. Brilinta added twice a day. We will continue to follow this patient very closely. Dictated by: Homa Payan NP Job#: [id number] [facility]
[2018-03-04 12:18] VITALS: BP 144/63
[2018-03-04] MEDS ORDERED: ZOCOR20 MG PO (13:29)
[2018-03-04] MEDS ORDERED: TERAZOSIN HCL10 MG (13:30)
[2018-03-04] MEDS ORDERED: NIFEDIPINE ER30 M1 PO (13:31)
[2018-03-04] MEDS ORDERED: ASPIRIN81 MG (13:31)
[2018-03-04] MEDS ORDERED: BRILINTA90 MG (13:32)
[2018-03-04] MEDS ORDERED: CLONIDINE HCL 0.1 MG TAB PO SCH (14:00)
--- NOTE | 2018-03-05 04:37 | Discharge Summary ---
HOSPITAL COURSE: A 62-year-old female with past medical history positive for end-stage renal disease on dialysis, diabetes mellitus, and hypertension. Patient came with nausea and vomiting and also new onset atrial fibrillation with rapid ventricular response. Patient had a cardiac cath done by Dr. De Jesus because of elevated troponins and she was found to have a lesion in one of the branches of LAD. A stent was placed. Patient also was having high blood pressure. Blood pressure is better now. She was found to have some atypical very tiny lesions in the pancreas. Dr. Haider Bravo saw the patient from the gastroenterology point of view, and he recommended an MRI and MRCP in 1 year. PHYSICAL EXAM VITAL SIGNS: Blood pressure is 173/75, temperature 99.0, heart rate 70 per minute, respiratory rate 18 per minute, and oxygen saturation 99%. HEART: Regular rhythm. Normal S1 and S2 sounds. LUNGS: Clear bilaterally. ABDOMEN: Soft. EXTREMITIES: No evidence of cyanosis or trauma. LABS: On the BMP: Sodium 137, potassium 4.1, chloride 95, CO2 of 28, BUN 49, creatinine 7.18, and glucose 55. CBC: White blood count 10.0, hemoglobin 8.1, hematocrit 24.2, and platelet count 200,000. PT 15.1, INR 1.09, and PTT 28.1. AST 36, ALT 24, total bilirubin 0.5, and alkaline phosphatase 128. FINAL IMPRESSION 1. Coronary artery disease, status post stent placement. 2. Uncontrolled hypertension with end-stage renal disease. 3. Diabetes mellitus type 2 with end-stage renal disease. 4. End-stage disease, on dialysis. 5. Anemia chronic disease secondary to chronic renal failure. 6. Gastroesophageal reflux disease. 7. Status post atrial fibrillation with rapid ventricular response, in sinus rhythm. PLAN OF TREATMENT: Patient is going to be going home with carvedilol 25 mg twice a day, nifedipine 60 mg twice a day, aspirin 81 mg daily, ticagrelor 90 mg twice a day, and simvastatin 20 mg daily. She is going to continue with hydralazine 100 mg 3 times a day, Levemir 20 units at bedtime, terazosin 10 mg at bedtime, lisinopril 40 mg daily, and Epogen 5000 units on Monday, , and Monday, his hemodialysis days. Continue to monitor blood sugars before meals and at bedtime. Protonix 40 mg daily. Followup is going to be with Dr. De Jesus in a week and Dr. Haider Bravo in a couple of weeks and myself in 2 weeks. DIET: 1800-calorie ADA renal diet. SERINA PINEDA MD Job#: [id number] [facility]
--- NOTE | 2018-03-05 05:31 | Discharge Summary ---
HOSPITAL COURSE: Patient is told to have an MRI and MRCP in approximately 1 year to rule out any tumor or any other pathology. Right now, the CT of the abdomen shows very tiny lesions inside the pancreas and it is difficult to characterize. Dr. Haider Bravo, gastroenterology, was consulted on the case, and he recommended in 1 year an MRCP or MRI of the abdomen. The patient is aware of that and she is aware to follow up with Dr. Haider Bravo also for that effect. Job#: [id number] [place]
--- OUTSIDE RECORDS SUMMARY | 2018-03-13 10:46 | XMS REPORT ---
Author Author [facility] Address Unknown Phone Unavailable Care Team Providers Care Bellmaker Name Role Phone SERINA PINEDA Unavailable Unavailable Problems This patient has no known problems. Allergies, Adverse Reactions, Alerts This patient has no known allergies or adverse reactions. Medications This patient has no known medications. Results Test Description Test Time Test Comments Text Results Atomic Results Result Comments CT ABDOMEN/PELVIS WOW 2018-03-03 13:24:00 [place] [address] Patient Name: JARRED GROSSMAN MR #: [id number] : 1955 Age/Sex: 62/F Req #: [id number] [facility] Physician: SERINA PINEDA MD Ordered by: DIAZ EDDY MD Report #: [id number] Location: MED/SURG2 Room/Bed: [facility] Procedure: [id number] CT/CT ABDOMEN/PELVIS WOW Exam Date: 03/03/18 Exam Time: 1225 REPORT STATUS: Signed EXAM: CT Abdomen and Pelvis WITHOUT and WITH contrast INDICATION: Abnormal CT scan COMPARISON: CT 03/01/2018 TECHNIQUE: Abdomen and pelvis were scanned utilizing a multidetector helical scanner from the lung base to the pubic symphysis before and after administration of IV contrast. Coronal and sagittal reformations were obtained. Liver mass protocol was performed. Scan was performed pre-, arterial, portal venous, and 5 minute delayed phase. IV CONTRAST: 100 mL of Isovue-370 ORAL CONTRAST: Gastrografin COMPLICATIONS: None RADIATION DOSE: Total DLP: 527.2 mGy*cm Estimated effective dose: (DLP x 0.015 x size factor) mSv CTDIvol has been reviewed. It is below the limits set by the Radiation Protocol Committee (RPC). FINDINGS: LINES and TUBES: None. LOWER THORAX: Mild dependent atelectasis. HEPATOBILIARY: Previously noted hyperattenuating liver lesion is not appreciated. Finding suggests the previous lesion represented a perfusional abnormality. No focal hepatic lesions. No biliary ductal dilation. GALLBLADDER: Absent SPLEEN: No splenomegaly. PANCREAS: A 4 mm cystic bulge of the pancreatic duct in the head may represent a sidebranch IPMN (series 3 image 18). No focal solid masses or ductal dilatation. ADRENALS: No adrenal nodules KIDNEYS/URETERS: Kidney s enhance symmetrically. No hydronephrosis. No cystic or solid mass lesions. No stones. GI TRACT: No abnormal distention, wall thickening, or evidence of bowel obstruction. Increased circumferential wall thickening of the duodenum and ascending colon. Sigmoid colonic diverticula without evidence of diverticulitis. Appendix is normal. PELVIC ORGANS/BLADDER: Unremarkable. LYMPH NODES: No lymphadenopathy. VESSELS: There is moderate atherosclerotic disease in the aorta and major arterial branches. PERITONEUM / RETROPERITONEUM: No free air or fluid. BONES: There are degenerative changes in the lumbar spine. SOFT TISSUES: Asymmetric prominence of the left breast soft tissues. IMPRESSION: 1. No liver lesions. 2. Increased duodenal and ascending colonic wall thickening, likely infectious or inflammatory. 3. Stable subcentimeter low attenuating pancreatic lesion in the head may represent a sidebranch IPMN. Recommend follow up MRI in 12 months. 4. Asymmetric prominence of the left breast soft tissues. Recommend correlation with mammogram. Signed by: DR. José Jenkins MD on 03/03/2018 1:45 PM Dictated By: JOSÉ JENKINS MD 1342 Transcribed By: LISHA on 03/03/18 1345 COPY TO: DIAZ EDDY MD CT ABDOMEN/PELVIS W 2018-03-01 16:15:00 [place] [address] Patient Name: JARRED GROSSMAN MR #: [id number] : 1955 Age/Sex: 62/F Req #: [id number] Adm Physician: Ordered by: LIS BLANTON NP Report #: [id number] Location: ER Room/Bed: Procedure: [id number] CT/CT ABDOMEN/PELVIS W Exam Date: Exam Time: REPORT STATUS: Signed EXAMINATION: CT of the abdomen and pelvis with contrast. TECHNIQUE: Spiral CT images of the abdomen and pelvis were performed from the lung bases to the lesser trochanters after the intravenous administration of 100 cc of Isovue 370 and the oral administration of water. Coronal and sagittal reformatted images were obtained. COMPARISON: None. CLINICAL HISTORY:Abdominal pain, end-stage renal disease DISCUSSION: ABDOMEN/PELVIS: LOWER THORAX:Asymmetry of fibroglandular breast tissue left greater than right. Subsegmental atelectasis in the dependent portion of the lower lobes. Trace right pleural effusion. HEPATOBILIARY: 1.2 cm hyperattenuating lesion adjacent to the portal vein bifurcation (series 2 image 17); no additional focal hepatic lesion. Trace intrahepatic biliary ductal dilatation status post cholecystectomy. SPLEEN: No splenomegaly. PANCREAS: Subcentimeter low attenuating lesions in the pancreatic head may represent sidebranch IPMNs (coronal image 44 and 46). No peripancreatic inflammation. ADRENALS: No adrenal nodules. KIDNEYS/URETERS: No hydronephrosis, stones, or solid mass lesions. PELVIC ORGANS/BLADDER: The urinary bladder is unremarkable. The uterus is neutral in position with arcuate artery calcifications. No adnexal mass. PERITONEUM/RETROPERITONEUM: Trace free pelvic fluid average attenuation 15 Hounsfield units. No free air. LYMPH NODES: No pelvic sidewall, retroperitoneal, or mesenteric lymphadenopathy. VESSELS: The abdominal aorta, major branch vessels, and iliac arterial systems are patent with multi focal calcified and noncalcified atherosclerotic plaque. No aneurysmal dilatation. Portal vein, splenic vein, and central superior mesenteric vein are patent. GI TRACT: The large bowel is notable for scattered diverticula along the course of the sigmoid colon, without evidence of diverticulitis. The appendix is normal. There is no small bowel dilatation to suggest obstruction. BONES AND SOFT TISSUE: No focal soft tissue abnormalities. No osseous destructive lesions. IMPRESSION: No acute intra-abdominal or pelvic CT abnormalities. Trace pelvic ascites, likely reactive. Hyperattenuating lesion within the central liver likely represents a flash filling hemangioma. Definitive characterization with nonemergent CT of the abdomen with and without contrast (liver mass protocol) is suggested. Subcentimeter low-attenuation pancreatic lesions may represent cysts or side branch intraductal papillary mucinous neoplasia (IPMN). These lesions may also be further characterized by above recommended multiphase abdominal CT. Atherosclerotic vascular disease. Sigmoid diverticulosis without CT findings of diverticulitis. Asymmetry of fibroglandular breast tissue is likely due to patient positioning. Correlation with mammography is suggested if not recently performed. Signed by: Dr. Yenifer Barajas M.D. on 03/01/2018 4:28 PM Dictated By: YENIFER BARAJAS MD 27 Transcribed By: LISHA on 03/01/181627 COPY TO: LIS BLANTON NP CHEST SINGLE (PORTABLE) 2018-03-01 15:44:00 [place] [address] Patient Name: JARRED GROSSMAN MR #: [id number] : 1955 Age/Sex: 62/F Req #: [id number] Adm Physician: Ordered by: LIS BLANTON NP Report #: [id number] Location: ER Room/Bed: Procedure: [id number] DX/CHEST SINGLE (PORTABLE) Exam Date: Exam Time: REPORT STATUS: Signed A single frontal view of the chest. HISTORY: Abdominal pain, nausea COMPARISON: Chest radiograph March 20, 2017 DISCUSSION: Portable technique, limits sensitivity of the exam. Multiple overlying monitoring leads and tubing. Soft tissue attenuation partially limits sensitivity of the exam. Tubes/Lines: Interval removal of the right approach dialysis catheter. Lungs and pleura: Diffusely increased pulmonary markings. No evidence of a consolidative pneumonia or pulmonary alveolar edema. No definite pleural effusion or pneumothorax is identified. Heart and mediastinum: The cardiac silhouette and central pulmonary vasculature appears enlarged. Bones: Diffusely decreased mineralization of the osseous structures limits bone detail. IMPRESSION: Findings compatible with volume overload resulting in central pulmonary vascular congestion and interstitial edema. Signed by: Dr. Puma Terrell D.O., M.M.M. on 03/01/2018 3:47 PM Dictated By: PUMA TERRELL DO 46 Transcribed By: LISHA on 03/01/181546 COPY TO: LIS BLANTON MACHINE SHORTHAND TEACHER CHEST 2 VIEWS [place] [address] Patient Name: JARRED GROSSMAN MR #: [id number] : 1955 Age/Sex: 61/F Req #: [id number] Adm Physician: SERINA PINEDA MD Ordered by: RADHA EDDY MD Report #: [id number] Location: [facility] Room/Bed: [place] [address] Procedure: [id number] DX/CHEST 2 VIEWS Exam Date: 03/20/17 Exam Time: 0630 REPORT STATUS: Signed PROCEDURE: Frontal and lateral views of the chest. COMPARISON: Portable chest 03/17/2017. INDICATIONS: PNEUMONIA FINDINGS: Lines/tubes: Right internal jugular tunneled central venous catheter with tip projecting over the expected region of the right atrium. Lungs: No focal consolidation. No parenchymal mass. Bibasilar atelectasis. Pleura: Small bilateral pleural effusions. No pneumothorax. Heart and mediastinum: The heart and the mediastinum are normal. Bones: No acute bony abnormality. Degenerative changes of the thoracic spine. IMPRESSION: No acute radiographic abnormality. Dictated by: Kary El M.D. on 03/20/2017 at 7:32 Electronically approved by: Kary El M.D. on 03/20/2017 at 7:32 Dictated By: KARY EL MD 1 Transcribed By: SHARIF on 03/20/17731 COPY TO: RADHA EDDY MD CHEST SINGLE (PORTABLE) [place] [address] Patient Name: JARRED GROSSMAN MR #: [id number] : 1955 Age/Sex: 61/F Req #: [id number] Adm Physician: Ordered by: JOVANA FRANKLIN MD Report #: [id number] Location: ER Room/Bed: Procedure: [id number] DX/CHEST SINGLE (PORTABLE) Exam Date: Exam Time: REPORT STATUS: Signed PROCEDURE: A single AP view of the chest. COMPARISON: Portable chest 10/24/2016. INDICATIONS: COUGH, CONGESTION FINDINGS: Lines/tubes: Right internal jugular tunneled central venous catheter with tip projecting over the expected region of the right atrium. Lungs: Airspace opacity in the right lung base. The left lung is clear. Pleura: There is no pleural effusion or pneumothorax. Heart and mediastinum: The heart and the mediastinum are unremarkable. Bones: No acute bony abnormality. Degenerative changes of the thoracic spine. IMPRESSION: Right lower lobe pneumonia. Dictated by: Kary El M.D. on 03/17/2017 at 11:33 Electronically approved by: Kary El M.D. on 03/17/2017 at 11:33 Dictated By: KARY EL MD 1133 Transcribed By: SHARIF on 03/17/17 1133 COPY TO: JOVANA FRANKLIN MD
--- OUTSIDE RECORDS SUMMARY | 2018-03-13 10:46 | XMS REPORT | Clinical Summary ---
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 Type Phone Address Plan / Group BCBS BCBS xxxxxxxxxxxx PPO SNEHA PPO/GABI OLIVO PPO [id number] Transplant Self 1955 Home: [address] [place] [address]
--- OUTSIDE RECORDS SUMMARY | 2018-03-13 10:55 | XMS REPORT | Clinical Summary ---
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 vd confirmation 38 [...] Ramos Mammogram results (rec'd mammo results from [facility] 12/05/16 sanned in media. ) after 02/28/2017 [...] Occult blood, stool Negative for occult blood. [facility] DEPARTMENT OF Comment: PATHOLOGY AND Specimen Information GENOMIC MEDICINE Specimen Source: Stool Specimen Site: Nonpreserved Specimen Stool - Nonpreserved Performing Organization Address City/State/Zipcode Phone Number [facility] DEPARTMENT OF [address] [place] [address] PATHOLOGY AND GENOMIC MEDICINE * CTA Abdomen [...] patent. Nonvascular Findings: 1.Liver, spleen, pancreas, adrenals, [place] kidneys are within normal limits. The gallbladder is surgically absent with mild patulousness of the common bile duct related to postcholecystectomy state. 2.The bowel is unobstructed. The appendix is normal in appearance. There is sigmoid diverticulosis without acute diverticulitis. 3.The uterus is grossly unremarkable. There is no adnexal mass. 4.The urinary bladder is unremarkable. [facility]-[id number] Procedure Note Interface, Radiology Results Incoming - [...] Nonvascular Findings: 1. Liver, spleen, pancreas, adrenals, [place] kidneys are within normal limits. The gallbladder is surgically absent with mild patulousness of the common bile duct related to postcholecystectomy state. 2. The bowel is unobstructed. The appendix is normal in appearance. There is sigmoid diverticulosis without acute diverticulitis. 3. The uterus is grossly unremarkable. There is no adnexal mass. 4. The urinary bladder is unremarkable. [facility]-[id number] Performing Organization Address City/State/Zipcode Phone Number [address] [address] * Low resolution full typing by SSO (03/08/2017 8:35 AM) [facility] DEPARTMENT OF PATHOLOGY AND GENOMIC MEDICINE Low resolution full See link below for PDF Lab [facility] DEPARTMENT OF typing by SSO Report PATHOLOGY AND GENOMIC MEDICINE Performing Organization Address City/[facility] Phone Number [facility] DEPARTMENT [place] [phone] PATHOLOGY AND GENOMIC MEDICINE * C1Q class 1 & 2 antibody (03/08/2017 8:35 AM) [facility] DEPARTMENT OF PATHOLOGY AND GENOMIC MEDICINE C1Q class 1 & 2 antibody See link below for PDF Lab [facility] DEPARTMENT OF Report PATHOLOGY AND GENOMIC MEDICINE Performing Organization Address [facility] Phone Number [address] [address] PATHOLOGY AND GENOMIC MEDICINE * HSV 1 & 2 glycoprotein G Ab, IgG (03/08/2017 8:35 AM) HSV 1 glycoprotein G Ab, Positive (A) Negative [facility] DEPARTMENT OF IgG Comment: PATHOLOGY AND Positive results may indicate GENOMIC MEDICINE current or past HSV infection. For acute illness, viral PCR and IgM testing are recommended. Individuals infected with HSV may not exhibit detectable antibodies in cases of early infection. HSV 2 glycoprotein G Ab, Positive (A) Negative [facility] DEPARTMENT OF IgG Comment: PATHOLOGY AND Positive results may indicate [facility] MEDICINE current or past HSV infection. For acute illness, viral PCR and IgM testing are recommended. Individuals infected with HSV may not exhibit detectable antibodies in cases of early infection. Specimen Serum Performing Organization Address City/[facility] Phone Number [address] [address] PATHOLOGY AND [facility] MEDICINE * Jay-Briscoe virus antibody test (03/08/2017 8:35 AM) EBV Ab to viral capsid POSITIVE (A) Negative [facility] DEPARTMENT OF Ag, IgG PATHOLOGY AND [facility] EBV Ab to viral capsid Negative Negative [facility] DEPARTMENT OF Ag, IgM PATHOLOGY AND [facility] MEDICINE EBV Ab to nuclear Ag, IgG POSITIVE (A) Negative [facility] DEPARTMENT OF PATHOLOGY AND [facility] MEDICINE EBV Ab to early (D) Ag, Negative Negative [facility] DEPARTMENT OF IgG Comment: PATHOLOGY AND Interpretive [...] Serum Performing Organization Address City/State/Zipcode Phone Number [facility] DEPARTMENT OF [address] [place] [phone] PATHOLOGY AND [facility] * TB T-SPOT (03/08/2017 8:35 AM) TB [...] FOR USE WITH T=SPOT.TB TEST. Performed by: [facility] Tuberculosis [facility] ([id number]) [place], [place] [address] Specimen Blood Performing Organization Address City/State/Zipcode Phone Number [facility] [address] [place] [address] * Single antigen beads (03/08/2017 8:35 AM) [facility] DEPARTMENT OF PATHOLOGY AND GENOMIC MEDICINE Single antigen beads See link below for PDF Lab [facility] DEPARTMENT OF Report PATHOLOGY AND GENOMIC MEDICINE Performing Organization Address City/State/Zipcode Phone Number [facility] [place] [address] PATHOLOGY AND GENOMIC MEDICINE * HSV type 1/2 combined Ab, IgM (03/08/2017 8:35 AM) HSV 1/2 combined Ab, IgM 1.49 (H) <=0.89 IV [facility] Comment: INTERPRETIVE INFORMATION: Herpes Simplex Virus [...] more than 12 months post-infection. Performed by [facility], [address] [place], [place] [id number] [email or web address], Kash Castro MD - Lab. Director Specimen Serum Performing Organization Address [facility] Phone Number [facility] [address] [place] [address] * HLA autologous crossmatch, AHG (03/08/2017 8:35 AM) [facility] DEPARTMENT OF PATHOLOGY AND GENOMIC MEDICINE HLA autologous crossmatch See link below for PDF Lab [facility] DEPARTMENT OF Report PATHOLOGY AND GENOMIC MEDICINE Performing Organization Address City/[facility] Phone Number [facility] [place] [address] PATHOLOGY AND GENOMIC MEDICINE * Herpes simplex virus by PCR (03/08/2017 8:35 AM) Herpes virus, PCR Not-Detected Not-Detected [facility] DEPARTMENT OF PATHOLOGY AND GENOMIC MEDICINE Herpes virus, PCR See link below for PDF Lab [facility] DEPARTMENT OF ReportComment: Case Number: PATHOLOGY AND [id number] GENOMIC MEDICINE Performing Organization Address City/[facility] [place] [address] PATHOLOGY AND GENOMIC MEDICINE * Estimated GFR (03/08/2017 8:35 AM) GFR Non Af Amer 15 (A) mL/min/1.73 m2 [facility] DEPARTMENT OF PATHOLOGY AND GENOMIC MEDICINE GFR Af Amer 18 (A) mL/min/1.73 m2 [facility] DEPARTMENT OF Comment: PATHOLOGY AND Chronic kidney [...] specimen Performing Organization Address City/State/Zipcode Phone Number [facility] [place] [address] PATHOLOGY AND [employer] MEDICINE * Cytomegalovirus Ab, IgM (03/08/2017 8:35 AM) Cytomegalovirus Ab, IgM NegativeComment: Negative: CMV Negative [facility] DEPARTMENT OF IgM antibodies were not PATHOLOGY AND detected. GENOMIC MEDICINE Specimen Serum Performing Organization Address City/[facility]/Zipcode Phone Number [facility] [place] [address] PATHOLOGY AND GENOMIC MEDICINE * ABORh - transplant (03/08/2017 8:35 AM) ABO grouping O [facility] DEPARTMENT OF PATHOLOGY AND GENOMIC MEDICINE Rh type POS [facility] DEPARTMENT OF PATHOLOGY AND GENOMIC MEDICINE Specimen Blood Performing Organization Address City/State/[place] [address] PATHOLOGY AND GENOMIC MEDICINE * Cytomegalovirus Ab, IgG (03/08/2017 8:35 AM) Cytomegalovirus Ab, IgG Positive (A) Negative [facility] DEPARTMENT OF Comment: PATHOLOGY AND Positive; IgG antibody to CMV GENOMIC MEDICINE detected which may indicate exposure to CMV infection. Specimen Serum Performing Organization Address City/State/Zipcode Phone Number [facility] [place] [address] PATHOLOGY AND [employer] MEDICINE * Triglycerides (03/08/2017 8:35 AM) Triglycerides 125 <150 mg/dL [facility] DEPARTMENT OF PATHOLOGY AND GENOMIC MEDICINE Specimen Plasma specimen Performing Organization Address City/State/Zipcode Phone Number [facility] [place] [address] PATHOLOGY AND GENOMIC MEDICINE * Phosphorus level (03/08/2017 8:35 AM) Phosphorus 4.0 2.4 - 4.5 mg/dL [facility] DEPARTMENT OF PATHOLOGY AND GENOMIC MEDICINE Specimen Plasma specimen Performing Organization Address City/[facility] Phone Number [facility] [place] [address] PATHOLOGY AND GENOMIC MEDICINE * Parathyroid hormone (03/08/2017 8:35 AM) PTH 259 (H) 15 - 65 pg/mL [facility] DEPARTMENT OF PATHOLOGY AND GENOMIC MEDICINE Specimen Blood Performing Organization Address City/[facility] Phone Number [facility] [place] [address] PATHOLOGY AND GENOMIC MEDICINE * LDH (03/08/2017 8:35 AM) LDH 254 (H) 87 - 225 U/L [facility] DEPARTMENT OF PATHOLOGY AND GENOMIC MEDICINE Specimen Plasma specimen Performing Organization Address [facility] Phone Number [facility] [place] [address] PATHOLOGY AND GENOMIC MEDICINE * Hemoglobin A1c (03/08/2017 8:35 AM) Hemoglobin A1C 8.0 (H) 4.0 - 5.6 % [facility] DEPARTMENT OF Comment: PATHOLOGY AND HbA1c cutoffs for diagnosing GENOMIC MEDICINE diabetes: 4.0% - 5.6%=normal 5.7% - 6.4%=increased risk for diabetes (prediabetes) >=6.5%=diabetes Goals for glycemic control (ADA 2016) < 7.0%Target for non adults with diabetes. More or less stringent targets may be appropriate for individual patients. <7.5% Target for Children and adolescents with type 1 diabetes. Specimen Blood Performing Organization Address City/[facility] Phone Number [facility] [place] [address] PATHOLOGY AND GENOMIC MEDICINE * Fasting glucose level (03/08/2017 8:35 AM) Glucose, fasting 162 (H) 65 - 99 mg/dL [facility] DEPARTMENT OF PATHOLOGY AND GENOMIC MEDICINE Specimen Blood Performing Organization Address [facility] [place] [address] PATHOLOGY AND GENOMIC MEDICINE * Creatinine level (03/08/2017 8:35 AM) Creatinine 3.2 (H) 0.5 - 0.9 mg/dL [facility] DEPARTMENT OF PATHOLOGY AND GENOMIC MEDICINE Specimen Plasma specimen Performing Organization Address City/State/Zipcode Phone Number [facility] DEPARTMENT OF [address] [place] [address] PATHOLOGY AND GENOMIC MEDICINE * Cholesterol (03/08/2017 8:35 AM) Cholesterol 227 (H) <200 mg/dL [facility] DEPARTMENT OF PATHOLOGY AND GENOMIC MEDICINE Specimen Plasma specimen Performing Organization Address City/[facility]/Zipcode Phone Number [facility] DEPARTMENT OF [address] [place] [address] PATHOLOGY AND GENOMIC MEDICINE after 02/28/2017 Insurance Payer Benefit Subscriber ID Type Phone Address Plan / Group BCBS BCBS xxxxxxxxxxxx PPO SNEHA PPO/GABI OLIVO PPO [id number] Transplant Self 1955 Home: [address] [place] [address]
== END 2018-03-04 14:31 | disposition home or self-care (01) | DRG 246 ==
LOC: ER 13:17 → ERHOLD 17:02 → IMCU 23:21 → OBSVTOIN 03-03 11:31 → MED/SURG2 03-03 13:15
PROVIDERS: ADMIT Internal Medicine; ATTEND Internal Medicine
PROC: 027034Z Dilation of Coronary Artery, One Artery with Drug-eluting Intraluminal Device, Percutaneous Approach (ICD-10-PCS; 2018-03-02)
PROC: 4A023N7 Measurement of Cardiac Sampling and Pressure, Left Heart, Percutaneous Approach (ICD-10-PCS; 2018-03-02)
PROC: B2011ZZ Plain Radiography of Multiple Coronary Arteries using Low Osmolar Contrast (ICD-10-PCS; 2018-03-02)
PROC: 5A1D70Z Performance of Urinary Filtration, Intermittent, Less than 6 Hours Per Day (ICD-10-PCS; principal; 2018-03-03)
DX: I48.0 Paroxysmal atrial fibrillation (principal); N18.6 End stage renal disease; I21.4 Non-ST elevation (NSTEMI) myocardial infarction; I12.0 Hypertensive chronic kidney disease with stage 5 chronic kidney disease or end stage renal disease; I25.110 Atherosclerotic heart disease of native coronary artery with unstable angina pectoris; Z99.2 Dependence on renal dialysis; E11.22 Type 2 diabetes mellitus with diabetic chronic kidney disease; D63.1 Anemia in chronic kidney disease; E11.65 Type 2 diabetes mellitus with hyperglycemia; K76.9 Liver disease, unspecified; D13.6 Benign neoplasm of pancreas; K21.9 Gastro-esophageal reflux disease without esophagitis
CPT/HCPCS: 36415; 71045; 74177; 74178; 80053; 80061; 81001; 82150; 82550; 82553; 82948; 83690; 83735; 83880; 84443; 84484; 85007; 85025; 85027; 85610; 85730; 87086; 87340; 90962; 92928; 93005; 93306; 93454; 99284; C1769; C1874; G0378; J2001; J2250; J2405; J2550; J7030; J7799; Q4081; Q9967

== ENCOUNTER → 2018-03-23 | Outpatient (CLI) | payer BC ==
[~2018-03-23] MED LIST changes: +ASPIRIN81 MG; +BRILINTA90 MG; +CLONIDINE HCL0.2 MG PO; +HUMALOG100 UNIT/3 SQ; +LEVEMIR100 UNIT/1 SQ; +TERAZOSIN HCL10 MG; +ZOCOR20 MG PO
--- NOTE | 2018-03-23 11:48 | Diagnostic Imaging Report ---
EXAM: MR Abdomen WITHOUT Contrast Magnetic Resonance Cholangiopancreatography (M.R.C.P.) INDICATION: CT 03/03/2018 and 03/01/2018 ^ABNORMAL FINDINGS / MASS COMPARISON: None. TECHNIQUE: Multiplanar and multisequence imaging was performed of the abdomen without contrast. Axial T2 FR FSE, coronal 2-D FIESTA, coronal SSFSE, axial dual echo, axial DWI/ADC M.R.C.P. Technique: Multiplanar, multisequence MRCP was performed, with sequences including coronal and axial thin slab MRCP, coronal thick slab MRCP IV Contrast: None Oral Contrast: None Medications: None COMPLICATIONS: None FINDINGS: Motion artifacts limit evaluation. LOWER THORAX: Unremarkable. HEPATOBILIARY: Diffuse signal loss on the in-phase images with signal loss also seen in the spleen suggestive of hemosiderosis. No focal hepatic lesions. No biliary ductal dilation. GALLBLADDER: Absent SPLEEN: No splenomegaly. PANCREAS: No ductal dilatation. Superior pancreatic neck 0.3 cm T2 hyperintense focus (cor 2D FIESTA; coronal thin slab image 16) without continuity with the main pancreatic duct. Pancreatic head 0.5 cm T2 hyperintense focus (coronal thin slab image 12) with continuity with the main pancreatic duct. Pancreatic head 0.5 cm T2 hyperintense focus (coronal thin slab image 11) without continuity with the main pancreatic duct. ADRENALS: No adrenal nodules KIDNEYS/URETERS: No hydronephrosis. No cystic or solid mass lesions. GI TRACT: No abnormal distention, wall thickening, or evidence of bowel obstruction. LYMPH NODES: No lymphadenopathy. VESSELS: Unremarkable. PERITONEUM / RETROPERITONEUM: No free air or fluid. BONES: Unremarkable. SOFT TISSUES: Stable asymmetric prominence of the visualized left breast soft tissues. Recommend correlation with mammography as previously suggested. IMPRESSION: 1. Motion artifacts limit evaluation. 2. 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 Recommend follow-up MRI in 12 months. 3. 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 Signed by: DR. José House MD on 03/23/2018 11:45 AM
== END ==
LOC: MRI 08:43
PROVIDERS: ATTEND Internal Medicine Gastroenterology
DX: R93.5 Abnormal findings on diagnostic imaging of other abdominal regions, including retroperitoneum (principal)
CPT/HCPCS: 74181

== ENCOUNTER → 2018-06-29 | Outpatient (CLI) | payer MEDICARE, BC ==
[~2018-06-29] MED LIST changes: +REGADENOSON 0.4 MG/5 ML SYR IV ONE
--- NOTE | 2018-06-29 11:49 | Cardiology Report ---
DATE OF STUDY: June 29, 2018 PROCEDURE TITLE: Rest/stress single isotope SPECT imaging with pharmacologic stress and gated SPECT imaging. INDICATIONS: Coronary artery disease. PROCEDURE: The patient performed treadmill exercise using a Silvano protocol, exercising for 3 minutes 21 seconds to stage 2 and completing estimated work load of 4.6 metabolic equivalents (METs). The heart rate was 76 beats per minute at baseline and increased to 90 beats per minute during peak exercise, which was 58% of the maximum predicted heart rate. The resting electrocardiogram demonstrated normal sinus rhythm. There were no ST-segment changes consistent with myocardial ischemia. Due to leg discomfort and inability to achieve target heart rate, the patient was changed to a pharmacologic cardiac stress test. Pharmacologic stress testing was performed with regadenoson per protocol. The heart rate was 79 beats per minute at rest and increased to 82 beats per minute during the regadenoson infusion. The rest blood pressure was 158/57 and decreased to 150/55, which is a normal response. The patient did not develop any significant symptoms. The resting electrocardiogram demonstrated normal sinus rhythm. There were no ST-segment changes consistent with myocardial ischemia. Myocardial perfusion imaging was performed at rest following the injection of 11 mm of tetrofosmin. At peak pharmacologic effect, the patient was injected with 31 mCi of tetrofosmin. Gated poststress tomographic imaging was performed. FINDINGS: The overall quality of the study is fair. Left ventricular cavity is noted to be normal on the rest and stress studies. SPECT images demonstrate homogenous tracer distribution throughout the myocardium. Gated SPECT imaging reveals normal myocardial thickening and wall motion. The left ventricular ejection fraction was calculated at 69%. IMPRESSION: Myocardial perfusion imaging is normal. Overall left ventricular systolic function was normal without regional wall motion abnormalities. Poor exercise tolerance was noted. Job#: [id number]
== END ==
LOC: NM 06:39
PROVIDERS: ATTEND Internal Medicine Interventional Cardiology
DX: I25.10 Atherosclerotic heart disease of native coronary artery without angina pectoris (principal)
CPT/HCPCS: 78452; 93017; A9502; J2785

== ENCOUNTER 2018-07-13 11:54 | Inpatient (IN) | payer BC, MEDICARE ==
[~2018-07-13] VITALS: Ht 153 cm; Wt 47.2 kg
[~2018-07-13 11:54] MED LIST changes: -REGADENOSON 0.4 MG/5 ML SYR IV ONE
--- OUTSIDE RECORDS SUMMARY | 2018-07-13 11:57 | XMS REPORT | Clinical Summary ---
Author Author [facility] Organization [facility] Address Unknown Phone Unavailable Care Team Providers Care Drawstring Knotter Name Role Phone Asked, No Pcp PCP Unavailable Allergies No Known Allergies Medications End Date Status Medication Sig Dispensed Refills Start Date Active carvedilol (COREG) 25 MG Take 25 mg by 0 tablet mouth 2 (two) times a day with meals. Active insulin detemir (LEVEMIR) Inject 15 0 100 unit/mL injection Units under the skin daily. Active lisinopril Take 40 mg by 0 (PRINIVIL,ZESTRIL) 40 mg mouth daily. tablet Active NIFEDIPINE ORAL Take 60 mg by 0 mouth every 12 (twelve) hours. Active clonAZEPAM (KlonoPIN) 0.5 Take 0.5 mg 0 MG tablet by mouth every 12 (twelve) hours as needed for anxiety. Active Problems Problem Noted Date ESRD on hemodialysis 11/16/2016 Controlled type 2 diabetes mellitus with chronic kidney disease on chronic 11/16/2016 dialysis Hypertension 11/16/2016 Pre-transplant evaluation for kidney transplant 11/16/2016 Type 2 diabetes mellitus with diabetic chronic kidney disease 11/01/2016 Encounters Care Team Description Date Type Specialty Gianfranco Berry MA Fax test results 06/26/2018 Telephone Transplant Cecelia Quintanilla 10/16/2017 Documentation Transplant Judy Raymond Clinical For Transplant Listing Approval (Faxed clinical to BC/BS @ [phone] for Transplant Listing Approval. vd confirmation 38 pages successfully sent. Financial & nurse coordinators notified. ) 10/09/2017 Documentation Transplant Cecelia Quintanilla 10/04/2017 Documentation Transplant Judy Raymond 10/03/2017 Abstract Transplant Latasha Raman MRB packet 10/05/17 (MRB packet 10/05/17 scanned in media. ) 10/03/2017 Documentation Transplant Francisca hJa RN mrb packet 10/03/2017 Documentation Transplant Joseluis Sales RN 09/29/2017 Abstract Transplant Latasha Raman 2728 form (2728 form scanned in media. ) 09/06/2017 Documentation Transplant Latasha Raman Nephrology f/u (08:58am sp w/Susana in Dr. Tee to see if pt made appt on 04/28/17 because I have not received H&P. Pt r/s appt to 05/12/17 & Susana is now faxing over H&P today. ); Nephrology consult (nephrology consult 05/12/17 received today 09/06/17 & scanned in media. ) 09/06/2017 Documentation Transplant after 07/12/2017 Social History Date Tobacco Use Types Packs/Day Years Used Never Smoker Smokeless Tobacco: Never Used Sex Assigned at Date Recorded Not on file Industry Job Start Date Occupation Not on file Not on file Not on file Travel End Travel History Travel Start No recent travel history available. Last Filed Vital Signs Not on file Plan of Treatment Health Maintenance Due Date Last Done Comments DIABETIC RETINAL EYE EXAM 1955 DIABETIC FOOT EXAM 11/13/1963 BREAST CANCER SCREENING 11/13/2003 SHINGLES VACCINES (1 of 11/13/2003 2) INFLUENZA VACCINE 12/27/2017 CERVICAL CANCER SCREENING 03/08/2020 03/08/2017 COLON CANCER SCREENING 03/08/2027 03/08/2017, 03/06/2017 Results Not on fileafter 07/12/2017 Insurance Payer Benefit Subscriber ID Type Phone Address Plan / Group BCBS BCBS xxxxxxxxxxxx PPO CHOICE PPO/GABI OLIVO PPO Advance Directives Patient has advance care planning documents on file. For more information, [place] contact: Justus Ramos [address] [place] [address]
[2018-07-13 14:24] LABS: BASOPHILS # (AUTO) 0.1 (0.0-0.1); BASOPHILS % 0.8 % (0.0-1.0); EOSINOPHILS # (AUTO) 0.1 (0.0-0.4); EOSINOPHILS % 1.5 % (0.0-6.0); HEMATOCRIT 32.1 % (34.2-44.1); HEMOGLOBIN 10.4 g/dL (12.0-16.0); LYMPHOCYTES # (AUTO) 0.9 (1.0-3.2); LYMPHOCYTES % 10.4 % (18.0-39.1); MEAN CORPUSCULAR HEMOGLOBIN 31.5 pg (28-32); MEAN CORPUSCULAR HGB CONC 32.4 g/dL (31-35); MEAN CORPUSCULAR VOLUME 97.3 fL (81-99); MONOCYTES # (AUTO) 0.8 (0.2-0.8); MONOCYTES % 9.4 % (4.4-11.3); NEUTROPHILS # (AUTO) 6.5 (2.1-6.9); NEUTROPHILS % 77.4 % (38.7-80.0); PLATELET COUNT 264 x10e3/uL (140-360); RED CELL DISTRIBUTION WIDTH 15.2 % (11.7-14.4)
[2018-07-13 14:52] LABS: ALBUMIN 3.3 g/dL (3.5-5.0); ALBUMIN/GLOBULIN RATIO 1.2 (0.8-2.0); ANION GAP 19.1 mmol/L (8-16); CREATININE, SERUM 3.87 mg/dL (0.57-1.11); POTASSIUM 4.1 mmol/L (3.5-5.1)
--- NOTE | 2018-07-13 15:19 | Diagnostic Imaging Report ---
EXAMINATION: PA and lateral views of the chest. COMPARISON: March 01, 2018 CLINICAL HISTORY: Cough, shortness of breath DISCUSSION: Lines/tubes: None. Lungs: Venous congestion with pulmonary edema. Pleura: Small effusions. Heart and mediastinum: The cardiomediastinal silhouette is normal. Bones and soft tissues: No acute bony abnormalities. IMPRESSION: Pulmonary edema with small effusions. Signed by: Dr. Kali Banda M.D. on 07/13/2018 3:15 PM
--- NOTE | 2018-07-13 15:30 | NUR ---
ATE DIET WELL
[2018-07-13] MEDS ORDERED: AZITHROMYCIN 500MG/SOD CHL 0.9% 250ML BAG IV SCH (15:45)
[2018-07-13] MEDS ORDERED: CEFTRIAXONE SOD 1 GRAM/0.9% SOD CHL 50ML BAG IV SCH (15:45)
[2018-07-13] MEDS ORDERED: GUAIFENESIN/DEXTROMETHORPHAN LIQD 5 ML UDC PO PRN (15:45)
[2018-07-13] MEDS ORDERED: SODIUM CHLORIDE FLUSH 10 ML SYR INJ PRN (15:45)
[2018-07-13] MEDS ORDERED: AZITHROMYCIN 500MG/NS 250 ML 250 ML IV SCH (16:00)
[2018-07-13] MEDS ORDERED: DEXAMETHASONE SOD PHOS 10 MG/1 ML VIAL IV ONE (16:00)
[2018-07-13] MEDS ORDERED: FUROSEMIDE INJ 10 MG/ML 4 ML VIAL IV ONE (16:00)
--- OUTSIDE RECORDS SUMMARY | 2018-07-13 16:23 | XMS REPORT | Clinical Summary ---
Author Author [facility] Organization [facility] Address Unknown Phone Unavailable Care Team Providers Care Storeroom Supervisor Name Role Phone Asked, No Pcp PCP [...] Listing Approval (Faxed clinical to [employer] @ [phone] for Transplant Listing Approval. vd confirmation 38 pages successfully sent. Financial & nurse coordinators notified. ) 10/09/2017 Documentation Transplant Cecelia Quintanilla 10/04/2017 Documentation Transplant Judy Raymond 10/03/2017 Abstract Transplant Latasha Raman MRB packet 10/05/17 (MRB packet 10/05/17 scanned in media. ) 10/03/2017 Documentation Transplant Francisca Jha RN mrb packet 10/03/2017 Documentation Transplant Joseluis [...] more information, [facility] contact: Justus Ramos [address] [place] [address]
[2018-07-13] MEDS: CEFTRIAXONE SOD 1 GM/NS 50 ML 50 ML IV SCH (17:25)
[2018-07-13] MEDS: ALBUTEROL SULF 0.083% NEB SOLN 3 ML NEB NEB SCH (19:00)
[2018-07-13] MEDS: IPRATROPIUM BROMIDE 0.02% 2.5 ML NEB NEB SCH (19:00)
--- NOTE | 2018-07-13 20:01 | Diagnostic Imaging Report ---
EXAM: VENTILATION PERFUSION LUNG SCAN INDICATION: Shortness of breath. COMPARISON: Chest x-ray 07/13/2018 DISCUSSION: Xenon-133 gas 8 mCi was administered via inhalation. Dynamic images of the lungs in the posterior projection were obtained through single breath and washout phases. Distribution of tracer activity appears mildly irregular throughout the lungs. There is delayed washout with air trapping. Perfusion images of the lungs in multiple projections were obtained following intravenous administration of 6 mCi of Tc-99m MAA. Distribution of tracer appears mildly irregular throughout the lungs. There are no segmental perfusion defects of any size. The contours of the lungs are well demarcated. The cardiac silhouette is unremarkable. IMPRESSION: Abnormal ventilation/perfusion lung scan 1. Scan findings represent a very low probability for acute pulmonary embolic disease based on the PIOPED II criteria. 2. Scan findings are compatible with diffuse parenchymal and/or obstructive lung disease. Signed by: Dr. Kali Banda M.D. on 07/13/2018 7:58 PM
[2018-07-13 20:45] VITALS: BP 96/76
--- NOTE | 2018-07-13 21:00 | NUR ---
Received patient from the ER, Patient is alert and oriented x 4. patient is currently on 3l nc, patient was welcomed and offered a bed, safety and fall precautions maintained as per hospital protocol, bed in lowest position and locked, needed items beside bed and call rodriguez placed close to patient, patient instructed to use it to call nurses for any assistance needed, patient verbalized understanding. patient bp on arrival was 80/77, was repeated manually and reading was about the same, patient was asymptomatic, bp was rechecked again at 2400 and it was 177/80, patient bp was checked again at about 4am and the bp was 225/100, patient has home medications, md Shelly Ramos was made aware and ordered to restart home meds, home meds were restarted, bp was rechecked and recorded at about 6am.
[2018-07-13 21:11] VITALS: BP 80/75
[2018-07-14] VITALS (9 sets, daily range): BP systolic 177–245; BP diastolic 78–113
[2018-07-14] MEDS: ALBUTEROL SULF 0.083% NEB SOLN 3 ML NEB NEB SCH ×4 (00:30→15:11)
[2018-07-14] MEDS: IPRATROPIUM BROMIDE 0.02% 2.5 ML NEB NEB SCH ×4 (00:30→15:11)
[2018-07-14] MEDS ORDERED: CLONIDINE HCL 0.2 MG TAB PO ONE (05:00)
[2018-07-14] MEDS ORDERED: HYDRALAZINE HCL 25 MG TAB PO ONE (05:00)
[2018-07-14] MEDS ORDERED: LISINOPRIL 10 MG TAB PO ONE (05:15)
[2018-07-14 06:28] LABS: BASOPHILS % 0.3 % (0.0-1.0); HEMATOCRIT 32.6 % (34.2-44.1); HEMOGLOBIN 10.9 g/dL (12.0-16.0); LYMPHOCYTES # (AUTO) 0.4 (1.0-3.2); LYMPHOCYTES % 6.2 % (18.0-39.1); MEAN CORPUSCULAR HEMOGLOBIN 32.3 pg (28-32); MEAN CORPUSCULAR HGB CONC 33.4 g/dL (31-35); MEAN CORPUSCULAR VOLUME 96.7 fL (81-99); MONOCYTES # (AUTO) 0.2 (0.2-0.8); MONOCYTES % 3.2 % (4.4-11.3); NEUTROPHILS # (AUTO) 5.6 (2.1-6.9); NEUTROPHILS % 89.7 % (38.7-80.0); PLATELET COUNT 265 x10e3/uL (140-360); RED BLOOD COUNT 3.37 x10e6/uL (3.6-5.1); RED CELL DISTRIBUTION WIDTH 15.3 % (11.7-14.4)
[2018-07-14 06:58] LABS: ALBUMIN 3.2 g/dL (3.5-5.0); ALBUMIN/GLOBULIN RATIO 1.2 (0.8-2.0); ANION GAP 18.3 mmol/L (8-16); CALCIUM 8.8 mg/dL (8.4-10.2); CREATININE, SERUM 4.84 mg/dL (0.57-1.11); POTASSIUM 4.3 mmol/L (3.5-5.1)
--- NOTE | 2018-07-14 07:04 | Diagnostic Imaging Report ---
EXAMINATION: PA and lateral views of the chest. COMPARISON: 07/13/2018 CLINICAL HISTORY: Cough, shortness of breath DISCUSSION: Lines/tubes: None. Lungs: Venous congestion with pulmonary edema. Pleura: Small effusions. Heart and mediastinum: The cardiomediastinal silhouette is normal. Bones and soft tissues: No acute bony abnormalities. Degenerative changes in the thoracic spine IMPRESSION: Pulmonary edema with small effusions, unchanged. Signed by: DR. José House MD on 07/14/2018 7:01 AM
--- NOTE | 2018-07-14 08:00 | NUR ---
PT BROUGHT IN HOME MEDICATIONS , CLARIFIED DOSES
--- NOTE | 2018-07-14 08:06 | NUR ---
TELEPHONED MD Amy EDDY TO MAKE AWARE OF ELEVATED BP AND GET HOME MEDICATIONS RENEWED, AWAITING CALL BACK
[2018-07-14] MEDS ORDERED: ZOFRAN8 MG PO (08:17)
[2018-07-14] MEDS ORDERED: PANTOPRAZOLE SO40 MG PO (08:17)
[2018-07-14 08:25] LABS: LYMPHOCYTES % (MANUAL) 5 % (19-48); MONOCYTES % (MANUAL) 6 % (3.4-9.0); NEUTROPHILS % (MANUAL) 89 % (40-74)
[2018-07-14 08:26] LABS: PLATELET ESTIMATE ADEQUATE; PLATELET MORPHOLOGY COMMENT NORMAL
[2018-07-14 08:28] LABS: RBC MORPHOLOGY COMMENT ABNORMAL
[2018-07-14 08:29] LABS: POLYCHROMASIA FEW
[2018-07-14 08:30] LABS: ANISOCYTOSIS MODERATE
[2018-07-14 08:31] LABS: POIKILOCYTOSIS SLIGHT
[2018-07-14] MEDS: CARVEDILOL 12.5 MG TAB PO SCH ×2 (09:00→20:05)
[2018-07-14] MEDS: LISINOPRIL 20 MG TAB PO SCH (09:00)
[2018-07-14] MEDS ORDERED: HYDRALAZINE HCL 25 MG TAB PO SCH ×2 (09:00→12:00)
[2018-07-14] MEDS ORDERED: CARVEDILOL 12.5 MG TAB PO SCH (09:00)
--- NOTE | 2018-07-14 09:26 | NUR ---
2ND CALL TO MD Amy EDDY REGARDING ELEVATED BP, SPOKE WITH ADELE, AWAITING CALL BACK, PT SITTING IN BED, NO DISTRESS NOTED
[2018-07-14] MEDS ORDERED: ONDANSETRON HCL 4 MG ORAL DISINTEGRATING TAB PO PRN (09:45)
--- NOTE | 2018-07-14 09:45 | NUR ---
SPOKE WITH MD Amy EDDY, ORDERS NOTED
--- NOTE | 2018-07-14 09:46 | NUR ---
MD KIM PETE SEE PT, DISCUSSED POC Addendum: 07/14/18 at 1020 by Renay Serra RN AWARE OF ELEVATED BP
--- NOTE | 2018-07-14 09:54 | NUR ---
SPOKE WITH ANTONIO AT [facility]IS [facility], WILL HAVE DIALYSIS NURSE CALL
[2018-07-14] MEDS ORDERED: ASPIRIN 81 MG CHEW TAB PO ONE (10:00)
[2018-07-14] MEDS ORDERED: EPOETIN ALFA 10000 UNIT/ML VIAL SC SCH ×2 (10:00→20:00)
[2018-07-14 10:40] LABS: CREATINE KINASE MB 0.6 ng/mL (0-5.0)
[2018-07-14] MEDS ORDERED: FUROSEMIDE 40 MG TAB PO SCH (11:00)
--- NOTE | 2018-07-14 11:00 | NUR ---
DEV RADIOLOGY SUPERVISOR WITH MD MENEZES INTO SEE PT, DISCUSSED POC
[2018-07-14] MEDS ORDERED: HYDRALAZINE HCL 20 MG/ML VIAL IV PRN (11:15)
[2018-07-14] MEDS: FUROSEMIDE INJ 10 MG/ML 4 ML VIAL IV SCH (11:30)
[2018-07-14] MEDS: INSULIN LISPRO 100 UNIT/1 ML 3ML VIAL SQ SCH ×4 (11:30→20:05)
[2018-07-14] MEDS: NIFEDIPINE CR 30 MG TAB PO SCH ×2 (11:35→22:18)
[2018-07-14] MEDS: TICAGRELOR 90 MG TABLET PO SCH ×2 (11:35→22:18)
[2018-07-14] MEDS: ASPIRIN 81 MG CHEW TAB PO SCH (12:00)
[2018-07-14] MEDS ORDERED: HYDRALAZINE HCL 20 MG/ML VIAL IV ONE (12:00)
--- NOTE | 2018-07-14 12:20 | NUR ---
MD Amy EDDY INTO SEE PT, DISCUSSED POC, AWARE OF ELEVATED BP AND MEDS THAT HAVE BEEN GIVEN, AWARE THAT PT STATES MD PINEDA STOPPED HYDRALAZINE AND CLONIDINE, ORDERS NOTED
[2018-07-14] MEDS ORDERED: DEXTROSE 50% SYRINGE 50 ML IV PRN (12:30)
[2018-07-14] MEDS ORDERED: SODIUM CHLORIDE 0.9% 1000ML 2,000 ML ONE (13:12)
--- NOTE | 2018-07-14 13:16 | NUR ---
ECHO IN MALCOM, DIALYSIS NURSE NOW IN ROOM
[2018-07-14] MEDS: METOPROLOL TARTRATE INJ 1 MG/ML VIAL IV PRN (15:21)
--- NOTE | 2018-07-14 15:22 | NUR ---
MEDICATED PER MD ORDER FOR ELEVATED BP PER DIALYSIS NURSE REQUEST
--- NOTE | 2018-07-14 15:32 | Consultation ---
DATE OF CONSULTATION: July 14, 2018 RENAL CONSULTATION REASON FOR CONSULTATION: End-stage renal disease, volume overload. HISTORY OF PRESENT ILLNESS: A 62-year-old female with end-stage renal disease and coronary artery disease presented to [facility] with shortness of breath. Patient has been short of breath prior to dialysis in the last few treatments; however, last night she became very short of breath including some orthopnea and dyspnea on exertion. She denied having any chest pain, but presented to the emergency room. Patient was admitted. Nephrology consultation was called. REVIEW OF SYSTEMS: As above. All other systems negative. PAST MEDICAL HISTORY 1. End-stage renal disease, on hemodialysis Monday, and Monday at [facility]. 2. Diabetes. 3. Hypertension. 4. Coronary artery disease. PAST SURGICAL HISTORY 1. Left upper extremity AV fistula. 2. Bladder surgery. SOCIAL HISTORY: No tobacco. No alcohol. No IV drugs. FAMILY HISTORY: No family history of kidney disease. ALLERGIES: NO KNOWN DRUG ALLERGIES. CURRENT MEDICATIONS: See list. PHYSICAL EXAMINATION VITAL SIGNS: Blood pressure is 219/94, pulse of 67, respiratory rate of 22, and temperature 97.3. GENERAL: No apparent distress. HEENT: Oropharynx is clear. No scleral icterus. No papilledema. NECK: Supple. Elevated jugular venous pressure. No lymphadenopathy. CHEST: Decreased breath sounds at bases anteriorly and posteriorly bilaterally. CARDIOVASCULAR: Regular rhythm. ABDOMEN: Soft. Positive bowel sounds. No tenderness. No rebound. EXTREMITIES: No edema. No clubbing. No cyanosis. SKIN: Warm. LABS: White count 6.72, hemoglobin 10.9, hematocrit 32.6, platelets 265. Sodium 138, potassium 4.3, chloride 99, CO2 of 25, BUN 33, creatinine 4.84, glucose 329. Chest x-ray, vascular congestion. ASSESSMENT AND PLAN 1. End-stage renal disease. We will plan for hemodialysis today. Continue Monday, and Monday. 2. Anemia secondary to chronic kidney disease. We will start patient on Epogen. 3. Congestive heart failure. We will ultrafiltrate with hemodialysis. We will need to adjust her dry weight and optimize her blood pressure meds. We will also consult her early childhood education instructor and check cardiac enzymes. 1. Hypertension. We will optimize blood pressure medicines and dry weight. 2. Electrolytes acceptable. Job#: [id number] ABBIE
--- NOTE | 2018-07-14 15:41 | NUR ---
Patient lives: at home with and daughter Admit/Transfer: Admit Hospital/ER visits since last admit: February at [facility] PO[facility]/Emergency contact: Alexis Horner Current/Previous Home Health: N/A PCP/Follow-up Care: Sumit Almaguer MD Current/Previous DME: None Medications (referring to index hospitalization or the first time you were in the hospital) a. Were changes made in your medications when you were in the hospital on [date of index hospitalization]? Yes ?No Not sure Explain: Note: If no or not sure, please skip to question d b. Did you understand the changes? Yes No Explain: c. Were you able to obtain your new medications right away? Yes No n/a SNF only Explain: d. Were you able to take your medications like the doctor wanted you to? Yes No Explain: e. Did the hospital give you an accurate, easy to understand list of medications when you left? Yes No n/a SNF only Explain: Scale of 1-10 how comfortable does patient feel with disease management in outpatient setting: Other Services: Employment Status: retired Areas of Concerns: Referral Needs: Education Needs: IMM/HUDSON given and signed (if applicable): Goal for discharge:
--- NOTE | 2018-07-14 15:54 | Consultation ---
DATE OF CONSULTATION: CARDIOLOGY CONSULTATION REASON FOR CONSULTATION: Shortness of breath and pulmonary edema. CONSULTING PHYSICIAN: Dr. Bravo. HISTORY OF PRESENT ILLNESS: Ms. Horner is a 62-year-old female with past medical history of diabetes mellitus, hypertension, end-stage renal disease on hemodialysis, CAD status post LAD stent and also paroxysmal atrial fibrillation who reports that she was in her usual state of health until Monday night and started developing worsening shortness of breath. This shortness of breath was worse on exertion; however, at this time, this shortness of breath is not that bothersome. She still has some, but not as bothersome as that time. She denies any associated chest pain, dizziness, syncope, edema, or orthopnea. She is awaiting a kidney transplant and had a recent stress test here at [facility] approximately 2 weeks ago that showed normal myocardial perfusion and no signs of ischemia. REVIEW OF SYSTEMS: Negative except as mentioned above. PAST MEDICAL HISTORY: As dictated above. PAST SURGICAL HISTORY: Cholecystectomy, left upper extremity AV fistula, and a bladder surgery. ALLERGIES: NONE NOTED. CARDIOVASCULAR MEDICATIONS 1. Coreg 25 mg q.12 hours p.o. 2. Lisinopril 40 mg p.o. daily. 3. Nifedipine 60 mg p.o. 12 hours. 4. Aspirin 81 mg p.o. daily. 5. Simvastatin 20 mg p.o. at bedtime. LABS: WBC 6.27, hemoglobin 10.9, hematocrit 32.6, platelets 265. Sodium 138 potassium 4.2, BUN 33, creatinine 4.84, glucose 329. AST 13, ALT 6, alkaline phosphatase 106, CK 34, CK-MB 0.60, troponin 0.001. IMAGING: Chest x-ray with pulmonary edema with small effusion noted. TELEMETRY: Sinus rhythm. PHYSICAL EXAMINATION VITALS: Temperature 97.3, pulse 67, respiratory rate 20, blood pressure 219/94, oxygen saturation 97% on 3 liters nasal cannula. GENERAL: Alert and oriented x3, resting comfortably in bed, does not appear to be in any acute distress. NECK: Supple. Kgsz-uw-lwaoimdt JVD noted. No carotid bruit. LUNGS: Diminished breath sounds posterior lower lobes with some fine crackles, otherwise clear to auscultation. CARDIOVASCULAR: Regular rate and rhythm. Diastolic murmur present. Normal S1, S2. ABDOMEN: Soft, nontender. LOWER EXTREMITIES: No edema. IMPRESSION: 1. Coronary artery disease status post left anterior descending stent on 03/02/2018. 2. History of paroxysmal atrial fibrillation, remains in sinus rhythm at this time. 3. End-stage renal disease on hemodialysis. 4. Hypertension. 5. Diabetes mellitus. 6. Congestive heart failure. 7. Shortness of breath. RECOMMENDATIONS: Repeat echocardiogram this morning. Patient has been initiated on diuretics. Alter medications for better blood pressure control. Maintain patient on telemetry at this time and continue to monitor very closely. Continue end-stage renal disease care per claims attorney. We will continue to monitor this patient very closely. Thank you for this consultation. DICTATED BY: DEV JEFFERSON NP Job#: [id number] ABBIE
[2018-07-14] MEDS: CEFTRIAXONE SOD 1 GM/NS 50 ML 50 ML IV SCH ×2 (16:00→21:35)
--- NOTE | 2018-07-14 16:47 | NUR ---
DIALYSIS STILL IN PROGRESS, PT VOICES NO NEEDS AT THIS TIME, CALL LIGHT WITHIN REACH
--- NOTE | 2018-07-14 18:34 | NUR ---
DIALYSIS COMPLETE, DIALYSIS NURSE REPORTS HE TOOK OFF 3L, PT SITTING UP IN BED EATING DINNER BROUGHT IN BY FAMILY, VOICES NO NEEDS AT THIS TIME, CALL LIGHT WITHIN REACH, EDUCATED TO CALL PRIOR TO GETTING OOB, VERBALIZED UNDERSTANDING
--- NOTE | 2018-07-14 19:09 | NUR ---
WALKING ROUNDS PERFORMED, RECEIVED PT LAYING FOWLERS IN BED, AAOX3, RR EVEN AND NON-LABORED, O2 BY NC AT 3L. NO S/SX OF DISTRESS NOTED. PT VOICED THAT SHE WAS FEELING MUCH BETTER AFTER DIALYSIS. LEFT PT LAYING FOWLERS IN BED, BED IN LOW LOCKED POSITION, SIDE RAILS UPX2, CALL LIGHT AND PHONE WITHIN REACH.
[2018-07-14] MEDS ORDERED: SODIUM CHLORIDE 0.9% 250ML 250 ML ONE (19:51)
[2018-07-14] MEDS: AZITHROMYCIN 500MG/NS 250 ML 250 ML IV SCH (20:03)
[2018-07-14] MEDS: SIMVASTATIN 20 MG TAB PO SCH (20:05)
[2018-07-14] MEDS: INSULIN GLARGINE 100 UNITS/ML VIAL SQ SCH (20:05)
[2018-07-15] VITALS (10 sets, daily range): BP systolic 154–187; BP diastolic 70–83
[2018-07-15] MEDS: IPRATROPIUM BROMIDE 0.02% 2.5 ML NEB NEB SCH ×5 (00:07→23:34)
[2018-07-15] MEDS: ALBUTEROL SULF 0.083% NEB SOLN 3 ML NEB NEB SCH ×5 (00:08→23:35)
[2018-07-15] MEDS: METOPROLOL TARTRATE INJ 1 MG/ML VIAL IV PRN ×2 (00:25→17:37)
[2018-07-15] MEDS: INSULIN LISPRO 100 UNIT/1 ML 3ML VIAL SQ SCH ×7 (07:30→20:02)
--- NOTE | 2018-07-15 08:23 | NUR ---
SPOKE WITH MD ALVAREZ, CLARIFIED NO DIALYSIS TODAY,
--- NOTE | 2018-07-15 08:40 | NUR ---
PT IN ROOM RESTING IN BED. C/O PAIN TO LOWER BACK, BLANCHABLE REDNESS NOTED TO SACRAL AREA. PILLOWS GIVEN FOR SUPPORT TO BACK. NC ON 2LPM, NO REDNESS OR SKIN BREAKDOWN NOTED AROUND NARES. IV NOTED TO LUE, LINE IS PATENT NO SWELLING OR REDNESS TO INSERTION SITE. A&O X3.
[2018-07-15] MEDS: FUROSEMIDE INJ 10 MG/ML 4 ML VIAL IV SCH (09:11)
[2018-07-15] MEDS: PANTOPRAZOLE SOD 40 MG TABEC PO SCH (09:12)
[2018-07-15] MEDS: LISINOPRIL 20 MG TAB PO SCH (09:12)
[2018-07-15] MEDS: CARVEDILOL 12.5 MG TAB PO SCH ×2 (09:12→20:36)
--- NOTE | 2018-07-15 09:45 | NUR ---
MD ALVAREZ INTO SEE PT, PT WEIGHED WITH STANDING SCALE AT 48.5KG
[2018-07-15] MEDS: ASPIRIN 81 MG CHEW TAB PO SCH (11:45)
[2018-07-15] MEDS: TICAGRELOR 90 MG TABLET PO SCH ×2 (11:45→23:10)
[2018-07-15] MEDS: NIFEDIPINE CR 30 MG TAB PO SCH ×2 (11:45→23:10)
--- NOTE | 2018-07-15 12:08 | Progress Note ---
DATE: CARDIOLOGY PROGRESS NOTE SUBJECTIVE: Patient reports that shortness of breath is much better today. She feels well. Denies any chest pain or any new complaints. OBJECTIVE VITAL SIGNS: Temperature 98.9, pulse 78, respiratory rate 18, blood pressure 155/73, oxygen saturation 98% on 3 liters nasal cannula. GENERAL: Alert and oriented x3, resting comfortably in bed. Does not appear to be in any acute distress. LUNGS: Diminished breath sounds posterior lower lobes with some scattered crackles. Otherwise, clear to auscultation. CARDIOVASCULAR: Regular rate and rhythm. Diastolic murmur present. Normal S1 and S2. ABDOMEN: Soft, nontender. EXTREMITIES: Lower extremities, no edema. CARDIOVASCULAR MEDICATIONS 1. Coreg 25 mg p.o. q.12 hours. 2. Lisinopril 40 p.o. daily. 3. Lasix 40 IV daily. 4. Metoprolol 5 mg IV every 6 hours p.r.n. for hypertension. 5. Nifedipine 60 mg p.o. q.12 hours. 6. Simvastatin 20 mg p.o. h.s. 7. Aspirin 81 p.o. daily. LABS: No new labs today. IMPRESSION 1. Coronary artery disease, status post left anterior descending stent on the March 02, 2018. 2. History of paroxysmal atrial fibrillation, remains in sinus rhythm at this time. 3. End-stage renal disease, on hemodialysis. 4. Hypertension. 5. Diabetes mellitus. 6. Congestive heart failure. RECOMMENDATIONS: Continue diuresis. Continue to monitor symptoms and improvement. Add Plavix to medication listed above. Maintain on telemetry. Continue volume management per bass mechanism maker. We will continue to monitor this patient closely. Dictated by: Homa Payan NP Job#: [id number] NOEMI
[2018-07-15] MEDS: CLOPIDOGREL BISULFATE 75 MG TAB PO SCH (12:25)
--- NOTE | 2018-07-15 16:41 | NUR ---
1610 NOTIFIED BY TELEMETRY THAT PT IS "GOING IN AND OUT OF BIGEMINY, AFIB RVR, SR WITH PAC FREQUENT", SPOKE WITH MD MENEZES AT 1613, NO NEW ORDERS AT THIS TIME EXCEPT TO MONITOR PT, PT SITTING IN BED, VOICES NO COMPLAINTS EXCEPTS C/O BEING "HOT"INTERMITTENTLY, NO DISTRESS, CALL LIGHT WITHIN REACH
--- NOTE | 2018-07-15 17:52 | NUR ---
[address] MENEZES REGARDING ELEVATED HR 140-180. ORDERS NOTED TO GIVE 5 METOPROLOL IV. 1737 5 IV METOPROLOL PER MD ORDER, PT CURRENTLY AT 149-182. 1746 HR AT 87BPM PER TELEMETRY. WILL MONITOR PT. CALL LIGHT WITHIN REACH
--- NOTE | 2018-07-15 18:06 | NUR ---
PER TELEMETRY PT IS SR, HR AT 87BPM
--- NOTE | 2018-07-15 18:10 | NUR ---
NURSE ATTEMPTED TO INFORM DR. MENEZES REGARDING PT'S RHYTHM AND HR. MD PHONE DISCONNECTED DURING CONVERSATION.
--- NOTE | 2018-07-15 18:29 | NUR ---
SPOKE WITH DIALYSIS AND INFORMED REGARDING DR. ALVAERZ ORDER FOR DIALYSIS FOR 07/16 IN THE AM.
--- NOTE | 2018-07-15 19:02 | NUR ---
WALKING ROUNDS PERFORMED, RECEIVED PT LAYING FOWLERS IN BED, AAOX3, RR EVEN AND NON-LABORED, O2 BY NC AT 3L. NO S/SX OF DISTRESS NOTED. LEFT PT LAYING FOWLERS IN BED, BED IN LOW LOCKED POSITION, SIDE RAILS UPX2, CALL LIGHT AND PHONE WITHIN REACH.
[2018-07-15] MEDS: INSULIN GLARGINE 100 UNITS/ML VIAL SQ SCH (20:02)
[2018-07-15] MEDS: AZITHROMYCIN 500MG/NS 250 ML 250 ML IV SCH (20:36)
[2018-07-15] MEDS: SIMVASTATIN 20 MG TAB PO SCH (20:36)
[2018-07-15] MEDS: CEFTRIAXONE SOD 1 GM/NS 50 ML 50 ML IV SCH (21:50)
[2018-07-16 00:29] VITALS: BP 151/70
[2018-07-16 04:00] VITALS: BP 162/85
--- NOTE | 2018-07-16 07:12 | NUR ---
Received patient awake in bed at this time, no signs of distress. Bed in lowest position, wheels locked, side rails up x2, call light in reach.
[2018-07-16 07:34] VITALS: BP 166/76
[2018-07-16] MEDS: PANTOPRAZOLE SOD 40 MG TABEC PO SCH (07:49)
[2018-07-16] MEDS: INSULIN LISPRO 100 UNIT/1 ML 3ML VIAL SQ SCH ×6 (07:50→18:18)
[2018-07-16] MEDS: FUROSEMIDE INJ 10 MG/ML 4 ML VIAL IV SCH (07:53)
[2018-07-16] MEDS: LISINOPRIL 20 MG TAB PO SCH (07:54)
[2018-07-16] MEDS: CARVEDILOL 12.5 MG TAB PO SCH (07:54)
[2018-07-16] MEDS: CLOPIDOGREL BISULFATE 75 MG TAB PO SCH (07:54)
--- NOTE | 2018-07-16 10:00 | NUR ---
Patient A/O X3, even respirations on 3LNC. Bowel sounds active, skin intact, no complaints of pain or discomfort at this time. Patient is ambulatory and voids in the toilet. Tele #20 SR. Right hand 20 gauge IV SL. Family at bedside, will continue to monitor.
[2018-07-16] MEDS: TICAGRELOR 90 MG TABLET PO SCH (10:32)
[2018-07-16] MEDS: NIFEDIPINE CR 30 MG TAB PO SCH (10:32)
--- NOTE | 2018-07-16 10:34 | Progress Note ---
DATE: July 16, 2018 CARDIOLOGY PROGRESS NOTE SUBJECTIVE: The patient denies chest pain or shortness of breath. OBJECTIVE VITALS: Temperature 98.3 degrees, pulse 77, respiratory rate 18, blood pressure 166/76, oxygen saturation 96% on 3 L nasal cannula. GENERAL: Awake, alert and in no acute distress. LUNGS: Clear to auscultation bilaterally. No wheezes or crackles. CARDIOVASCULAR: Normal rate. Regular rhythm. No murmur. Normal S1 and S2. ABDOMEN: Soft and nontender. EXTREMITIES: No edema. CARDIAC MEDICATIONS 1. Plavix 75 mg p.o. daily. 2. Carvedilol 25 mg p.o. q.12 h. 3. Lisinopril 40 mg p.o. daily. 4. Furosemide 40 mg IV daily. 5. Nifedipine 60 mg p.o. q.12 h. 6. Simvastatin 20 mg p.o. at bedtime. 7. Aspirin 81 mg p.o. daily. LABS: None today. Telemetry is normal sinus rhythm. IMPRESSION 1. Phkyf-nm-sazqkaf systolic and diastolic heart failure. 2. Coronary artery disease: Status post left anterior descending stent on March 02, 2018. 3. History of paroxysmal atrial fibrillation: Currently, sinus rhythm. 4. End-stage renal disease, on hemodialysis. 5. Hypertension. 6. Diabetes mellitus. RECOMMENDATIONS: Continue current cardiac medications. Volume management per nephrology given end-stage renal disease. Monitor the patient on telemetry. Unclear why the patient is not on anticoagulation given her paroxysmal atrial fibrillation. We will discuss with the patient given her need for dual antiplatelet therapy due to her recent stent. Thank you for this consult. We will continue to follow. Job#: [id number] [place]
[2018-07-16 10:39] VITALS: BP 166/76
--- NOTE | 2018-07-16 10:40 | NUR ---
EDUCATED ABOUT IMM, SIGNED, FILED IN CHART, WITH COPY LEFT WITH FAMILY AT BEDSIDE.
[2018-07-16] MEDS: ASPIRIN 81 MG CHEW TAB PO SCH (12:10)
[2018-07-16 12:17] VITALS: BP 171/79
--- NOTE | 2018-07-16 13:40 | Discharge Summary ---
Ms. Horner is a 62-year-old female with a history of coronary artery disease, status post stent, diabetes, hypertension, end-stage renal disease, on hemodialysis, paroxysmal atrial fibrillation, came to the emergency room complaining of shortness of breath that was on worse with exertion. She denies any chest pain. The patient is awaiting for kidney transplant. She underwent dialysis yesterday, Monday. She is going to go today. PHYSICAL EXAMINATION GENERAL: She is awake and alert. She is feeling better. VITALS: Temperature is 98.3, blood pressure is 166/76. HEART: Regular rate. LUNGS: Clear to auscultation. ABDOMEN: Soft. BLOOD WORK: White count is 6.27, hemoglobin 10.9, hematocrit 32.6. Glucose 106. Cardiac enzymes negative. Hepatitis profile pending. Influenza was negative. Blood cultures were negative. She had a V/Q scan that shows low probability of PE. Chest x-ray showed pulmonary edema with a small effusion. That was done 2 days ago. ASSESSMENT AND PLAN 1. Shortness of breath probably secondary to volume overload. 2. End-stage renal disease, on hemodialysis. 3. Anemia secondary to chronic kidney disease. 4. Diabetes, type 2 with end-stage renal disease. 5. Coronary artery disease, status post stent. 6. Congestive heart failure. 7. Paroxysmal atrial fibrillation. 8. Hypertension. 9. Hyperlipidemia. PLAN: At the present time, is the patient is going to go for hemodialysis today. If okay with renal and cardiology, she is going to be discharged home if she is stable. Continue her home medications and followup with her PCP in 1 week. Please see home medication reconciliation list. All this was discussed with the patient. All questions were answered to satisfaction. Job#: [id number] BRADLEY
[2018-07-16] MEDS: ALBUTEROL SULF 0.083% NEB SOLN 3 ML NEB NEB SCH (14:00)
[2018-07-16] MEDS: IPRATROPIUM BROMIDE 0.02% 2.5 ML NEB NEB SCH (14:00)
--- NOTE | 2018-07-16 15:20 | NUR ---
Patient receiving Hemodialysis at this time.
[2018-07-16] MEDS ORDERED: SODIUM CHLORIDE 0.9% 1000ML 1,000 ML ONE (15:34)
[2018-07-16 16:42] VITALS: BP 152/71
--- NOTE | 2018-07-16 18:30 | NUR ---
Patient done with HD. 2 L pulled off, current weight is 47.3 kg.
--- NOTE | 2018-07-16 18:34 | NUR ---
Removed patients IV, catheter tip intact and pressure dressing applied.
--- NOTE | 2018-07-16 18:58 | NUR ---
Patient discharged from facility. Patient gathered all personal belongings, discharge and follow up information. No signs of distress when leaving facility.
== END 2018-07-16 18:58 | disposition home or self-care (01) | DRG 291 ==
LOC: ER 11:54 → ERHOLD 16:20 → MED/SURG 20:56
PROVIDERS: ADMIT Internal Medicine; ATTEND Internal Medicine
PROC: 5A1D70Z Performance of Urinary Filtration, Intermittent, Less than 6 Hours Per Day (ICD-10-PCS; principal; 2018-07-14)
PROC: 5A1D70Z Performance of Urinary Filtration, Intermittent, Less than 6 Hours Per Day (ICD-10-PCS; 2018-07-16)
DX: I13.2 Hypertensive heart and chronic kidney disease with heart failure and with stage 5 chronic kidney disease, or end stage renal disease (principal); I50.43 Acute on chronic combined systolic (congestive) and diastolic (congestive) heart failure; N18.6 End stage renal disease; E11.22 Type 2 diabetes mellitus with diabetic chronic kidney disease; Z99.2 Dependence on renal dialysis; Z79.4 Long term (current) use of insulin; I48.0 Paroxysmal atrial fibrillation; Z79.01 Long term (current) use of anticoagulants; I25.10 Atherosclerotic heart disease of native coronary artery without angina pectoris; Z95.5 Presence of coronary angioplasty implant and graft; D63.1 Anemia in chronic kidney disease; E78.5 Hyperlipidemia, unspecified; K21.9 Gastro-esophageal reflux disease without esophagitis
CPT/HCPCS: 36415; 71046; 78582; 80053; 82550; 82553; 82948; 84484; 85025; 86704; 86705; 86707; 87040; 87340; 87400; 90962; 93005; 93306; 94640; 99285; A9540; A9558; J0456; J0696; J1100; J1815; J1940; J7030; J7050; Q4081

== ENCOUNTER 2019-05-06 06:54 | Emergency (ER) | payer MEDICARE, BC ==
[~2019-05-06] VITALS: Ht 153 cm; Wt 47.2 kg
[~2019-05-06 06:54] MED LIST changes: +PANTOPRAZOLE SO40 MG PO; +ZOFRAN8 MG PO
--- OUTSIDE RECORDS SUMMARY | 2019-05-06 06:57 | XMS REPORT | Summary of Care ---
Author Author [facility] - Health Organization [facility] - Health Address Unknown Phone Unavailable Care Team Providers Care Lab Aid Name Role Phone Sumit Almaguer PCP Encounter Details Care Team Description Date Type Department Hugo Lange MD [address] [place] [address] [phone] 12/21/2018 Abstract [facility] [address] [place] [phone] Allergies No Known Allergiesdocumented as of this encounter (statuses as of 12/21/2018) Medications End Date Status Medication Sig Dispensed Refills Start Date Active aspirin 81 mg EC tablet Take 81 mg by 0 mouth daily. Active terazosin 10 mg capsule Take 10 mg by 0 mouth at bedtime. Active metoprolol tartrate 50 mg Take 50 mg by 6 tabletIndications: mouth 2 (two) 9 Pre-operative times daily. cardiovascular examination, ESRD (end stage renal disease), Coronary artery disease involving [place] coronary artery of [place] heart with other form of angina pectoris, History of PTCA, Pulmonary HTN, Abnormal cardiovascular function study Active ELIQUIS 2.5 mg Take 2.5 mg 6 tabletIndications: by mouth 2 9 Pre-operative (two) times cardiovascular daily. examination, ESRD (end stage renal disease), Coronary artery disease involving [place] coronary artery of [place] heart with other form of angina pectoris, History of PTCA, Pulmonary HTN, Abnormal cardiovascular function study Active insulin lispro (HUMALOG inject 8 0 U-100 INSULIN Units under SC)Indications: the skin 3 Pre-operative (three) times cardiovascular daily with examination, ESRD (end meals. stage renal disease), Coronary artery disease involving [place] coronary artery of [place] heart with other form of angina pectoris, History of PTCA, Pulmonary HTN, Abnormal cardiovascular function study Active insulin degludec (TRESIBA inject 8 0 U-100 INSULIN Units under SC)Indications: the skin at Pre-operative bedtime. cardiovascular examination, ESRD (end stage renal disease), Coronary artery disease involving [place] coronary artery of [place] heart with other form of angina pectoris, History of PTCA, Pulmonary HTN, Abnormal cardiovascular function study Active amLODIPine 10 mg Take 10 mg by 0 tabletIndications: mouth daily. Pre-operative cardiovascular examination, ESRD (end stage renal disease), Coronary artery disease involving [place] coronary artery of [place] heart with other form of angina pectoris, History of PTCA, Pulmonary HTN, Abnormal cardiovascular function study documented as of this encounter (statuses as of 12/21/2018) Active Problems Not on filedocumented as of this encounter (statuses as of 12/21/2018) Immunizations Name Administration Dates Next Due Hep B, Adol or Pedi 05/04/2017, 02/04/2017, 12/29/2016, 12/03/2016 Dosage Influenza Virus Vaccine 02/16/2017 PPD (TB) 08/31/2017, 07/06/2017 Pneumococcal 11/03/2017 Polysaccharide, PPSV23 (PNEUMOVAX) documented as of this encounter Social History Date Tobacco Use Types Packs/Day Years Used Never Smoker Smokeless Tobacco: Never Used Drinks/Week oz/Week Comments Alcohol Use No Sex Assigned at Date Recorded Not on file Industry Job Start Date Occupation Not on file Not on file Not on file Travel End Travel History Travel Start No recent travel history available. documented as of this encounter Last Filed Vital Signs Not on filedocumented in this encounter Plan of Treatment Care Team Description Date Type Specialty Emeka Frey MD [id number] [place] [address] [phone] 03/05/2019 Office Visit Cardiology Health Maintenance Due Date Last Done Comments DTaP,Tdap,and Td Vaccines 1972 (1 - Tdap) MAMMOGRAM 1993 COLONOSCOPY 11/13/2003 Zoster Recombinant 11/13/2003 Vaccine (SHINGRIX) (1 of 2) Medicare Wellness Visit 2018 Osteoporosis Screening 2018 PNEUMOCOCCAL VACCINES 65+ 2018 11/03/2017 (1 of 2 - PCV13) INFLUENZA VACCINE 01/27/2019 02/16/2017 HEPATITIS C (HCV) SCREEN Completed 03/07/2018 documented as of this encounter Results Not on filedocumented in this encounter Insurance Type Payer Benefit Subscriber ID Effective Phone Address Plan / Dates Group Medicare MEDICARE MEDICARE xxxxxxxxxxx 2018- [phone] [address] Present [id number] [place] [phone] documented as of this encounter
--- OUTSIDE RECORDS SUMMARY | 2019-05-06 06:58 | XMS REPORT | Summary of Care ---
Author Author [facility] - Health Organization [facility] - Health Address Unknown Phone Unavailable Care Team Providers Care Radio Tower Technician Name Role Phone Sumit Almaguer PCP Reason for Visit * Reason Comments HEALTH MAINTENANCE MAMMOGRAM Encounter Details Care Team Description Date Type Department Team, [facility] Health Maintenance HEALTH MAINTENANCE; MAMMOGRAM 12/24/[address] [phone] Allergies No Known Allergiesdocumented as of this encounter (statuses as of 12/24/2018) Medications End Date Status Medication Sig Dispensed [...] stage renal disease), Coronary artery disease involving [place] coronary artery of [place] heart with other form of angina pectoris, History of PTCA, Pulmonary HTN, Abnormal cardiovascular function study Active ELIQUIS 2.5 mg Take 2.5 mg 6 tabletIndications: by mouth 2 9 Pre-operative (two) times cardiovascular daily. examination, ESRD (end stage renal disease), Coronary artery disease involving [place] coronary artery of [place] heart with other form of angina pectoris, History of PTCA, Pulmonary HTN, Abnormal cardiovascular function study Active insulin lispro (HUMALOG inject 8 0 U-100 INSULIN Units under SC)Indications: the skin 3 Pre-operative (three) times cardiovascular daily with examination, ESRD (end meals. stage renal disease), Coronary artery disease involving [place] coronary artery of [place] heart with other form of angina pectoris, History of PTCA, Pulmonary HTN, Abnormal cardiovascular function study Active insulin degludec (TRESIBA inject 8 0 U-100 INSULIN Units under SC)Indications: the skin at Pre-operative bedtime. cardiovascular examination, ESRD (end stage renal disease), Coronary artery disease involving [place] coronary artery of [place] heart with other form of angina pectoris, History of PTCA, Pulmonary HTN, Abnormal cardiovascular function study Active amLODIPine 10 mg Take 10 mg by 0 tabletIndications: mouth daily. Pre-operative cardiovascular examination, ESRD (end stage renal disease), Coronary artery disease involving [place] coronary artery of [place] heart with other form of angina pectoris, History of PTCA, Pulmonary HTN, Abnormal cardiovascular function study documented as of this encounter (statuses as of 12/24/2018) Active Problems Not on filedocumented as of this encounter (statuses as of 12/24/2018) Immunizations Name Administration Dates Next Due Hep [...] Date Type Specialty Emeka Frey MD [address] [facility] [id number] [place] [address] [phone] 03/05/2019 Office Visit Cardiology Health Maintenance Due Date Last Done Comments DTaP,Tdap,and Td Vaccines 1972 (1 - Tdap) COLONOSCOPY 11/13/2003 Zoster Recombinant 11/13/2003 Vaccine (SHINGRIX) (1 of 2) Medicare Wellness Visit 2018 Osteoporosis Screening 2018 PNEUMOCOCCAL VACCINES 65+ 2018 11/03/2017 (1 of 2 - PCV13) INFLUENZA VACCINE 01/27/2019 02/16/2017 MAMMOGRAM 05/16/2019 05/16/2018 HEPATITIS C (HCV) SCREEN Completed 03/07/2018 documented as of this encounter Results Not on filedocumented in this encounter Insurance Type Payer Benefit Subscriber ID Effective Phone Address Plan / Dates Group Medicare MEDICARE MEDICARE xxxxxxxxxxx 2018- [phone] [address] Present [id number] [place] [phone] documented as of this encounter
--- OUTSIDE RECORDS SUMMARY | 2019-05-06 06:58 | XMS REPORT | Summary of Care ---
Author Author [facility] - Health Organization [facility] - Health Address Unknown Phone Unavailable Care Team Providers Care Production Recovery Operator Name Role Phone Sumit Almaguer PCP Reason for Referral * (Routine) Referred By Contact Referred To Contact Status Reason Specialty Diagnoses / Procedures Emeka Frey MD [address] [facility] [id number] [place] [id number] New Request Cardiology Diagnoses History of PTCA Coronary artery disease involving [place] coronary artery of [place] heart with other form of angina pectoris ESRD (end stage renal disease) Pulmonary HTN P rocedures Cardiac Cath Request for Service (Cardiology Use Only) Reason for Visit * Reason Comments Follow-up Encounter Details Care Team Description Date Type Department Emeka Frey MD [address] [facility] [id number] [place] [address] Coronary artery disease involving [place] coronary artery of [place] heart with other form of angina pectoris (Primary Dx); History of PTCA; ESRD (end stage renal disease); Pulmonary HTN 01/25/2019 Office Visit [facility] Cardiology- [address] [phone] Allergies No Known Allergiesdocumented as of this encounter (statuses as of 01/25/2019) Medications End Date Status Medication Sig Dispensed [...] stage renal disease), Coronary artery disease involving [place] coronary artery of [place] heart with other form of angina pectoris, History of PTCA, Pulmonary HTN, Abnormal cardiovascular function study Active insulin lispro (HUMALOG inject 8 0 U-100 INSULIN Units under SC)Indications: the skin 3 Pre-operative (three) times cardiovascular daily with examination, ESRD (end meals. stage renal disease), Coronary artery disease involving [place] coronary artery of [place] heart with other form of angina pectoris, History of PTCA, Pulmonary HTN, Abnormal cardiovascular function study Active insulin degludec (TRESIBA inject 8 0 U-100 INSULIN Units under SC)Indications: the skin at Pre-operative bedtime. cardiovascular examination, ESRD (end stage renal disease), Coronary artery disease involving [place] coronary artery of [place] heart with other form of angina pectoris, History of PTCA, Pulmonary HTN, Abnormal cardiovascular function study Active amLODIPine 10 mg Take 10 mg by 0 tabletIndications: mouth daily. Pre-operative cardiovascular examination, ESRD (end stage renal disease), Coronary artery disease involving [place] coronary artery of [place] heart with other form of angina pectoris, History of PTCA, Pulmonary HTN, Abnormal cardiovascular function study Active warfarin 5 mg Take 5 mg by 0 tabletIndications: atrial mouth. fibrillation Indications: atrial fibrillation 01/25/2019 Discontinued ELIQUIS 2.5 mg Take 2.5 mg 6 tabletIndications: by mouth 2 9 Pre-operative (two) times cardiovascular daily. examination, ESRD (end stage renal disease), Coronary artery disease involving [place] coronary artery of [place] heart with other form of angina pectoris, History of PTCA, Pulmonary HTN, Abnormal cardiovascular function study documented as of this encounter (statuses as of 01/25/2019) Active Problems Not on filedocumented as of this encounter (statuses as of 01/25/2019) Immunizations Name Administration Dates Next Due Hep [...] of this encounter Last Filed Vital Signs Reading Time Taken Comments Vital Sign 149/79 01/25/2019 3:08 PM CDT Blood Pressure 74 01/25/2019 3:08 PM CDT Pulse - - Temperature 18 01/25/2019 3:08 PM CDT Respiratory Rate 96% 01/25/2019 3:08 PM CDT Oxygen Saturation - - Inhaled Oxygen Concentration 52 kg (114 lb 11.2 oz) 01/25/2019 3:08 PM CDT Weight 152.4 cm (5') 01/25/2019 3:08 PM CDT Height 22.4 01/25/2019 3:08 PM CDT Body Mass Index documented in this encounter Progress Notes * Emeka Fery MD - 01/25/2019 3:00 PM CDT IC Consult f/u note Referring renal tx service Dr Lange. CC; Pre renal [place] CV evaluation 63 yo female with DM II on insulin, ESRD on HD since 2016, HTN, TIA (09/2018, p a trial fibrillation, CAD/PCI of mLAD in 02/2018 (at [facility], no chest pain/SOB p er pt), patient has ILR placed Dr Wen office 10/2018 (for eval of atrial fibril lation), is here for pre renal Tx CV evaluation. Pt is being scheduled to have a PPM implant by Dr Jordan Willingham for a bradycardia detected on ILR. Since last visit patient underwent CTA of heart that showed anamolous RCA from L CC/interarterial course, patient underwent MIBI 01/23/19 that shows no ischemia. Pt is off eliquis due to cost and is taking warfarin (Dr De Jesus is managing warf rubi dose). Pt is able to walk 2 blocks without CP/SOB.Able to walk in house and grocery sto re. Pt is becoming more active. Pt denies CP/SOB. No PND/orthopnea. No dizziness/syncope/falls. No palpitations. No exercise. No Sz/PUD/DVT/PE. No bleeding issues. ROS Constitutional: no fever, n/o fatigue, no weight changes. Eyes: no visual changes. Ears: no change in hearing. Nose/Sinuses: no itching, no postnasal drip, no rhinorrhea, no denies sneezing. Mouth/Throat: no oral lesions, no sore throat. Neck: no pain Cardiovascular: no chest pain, no irregular pulse, no palpitations, tachycardia. Respiratory: no dyspnea on exertion, no shortness of breath, no hemoptysis. Gastrointestinal: no abdominal pain, no constipation, no diarrhea, no hematochez ia, no melena, c/o nausea, c/o vomiting. Genitourinary: no dysuria, no hematuria. Musculoskeletal: no back pain, no joint swelling, denies weakness. Skin: negative. Neuro: negative. Psych: negative. Endocrine: negative. Hem/Lymph: no bleeding gums, no easy bleeding, no easy bruising, no lymphadenopa thy. PMH/PSH: -CAD/LHC/PCI 03/12/18: mLAD stent 2.5 Resolute [place], RCA anamolous from [facility] (at [facility], no chest pain/SOB per pt), -Patient was in [facility] for high K/weakness/syncope in 10/15 18. -p atrial fibrillation detected 09/2018,patient has ILR placed Dr Wen office 2018 (for eval of atrial fibrillation), -Anamolous RCA from [facility] -DM II on insulin -ESRD on HD since 2016 -HTN -TIA (09/2018) -cholecystectomy SH: no smoking, no etoh abuse, no drug abuse FH: one sister has CABG at age 60s, father patient does not knoe him, [place] you at age 87 no CAD No Known Allergies Current Outpatient Medications: warfarin 5 mg tablet, Take 5 mg by mouth. Indications: atrial fibrillation, Disp: , Rfl: amLODIPine 10 mg tablet, Take 10 mg by mouth daily., Disp: , Rfl: insulin degludec (TRESIBA U-100 INSULIN SC), inject 8 Units under the skin at bedtime., Disp: , Rfl: insulin lispro (HUMALOG U-100 INSULIN SC), inject 8 Units under the skin 3 (three) times daily with meals., Disp: , Rfl: metoprolol tartrate 50 mg tablet, Take 50 mg by mouth 2 (two) times daily., Disp: , Rfl: 6 aspirin 81 mg EC tablet, Take 81 mg by mouth daily., Disp: , Rfl: terazosin 10 mg capsule, Take 10 mg by mouth at bedtime., Disp: , Rfl: BP (!) 149/79 (BP Location: Right arm, Patient Position: Sitting, BP CUFF SIZE: Adult Medium) | Pulse 74 | Resp 18 | Ht 5' (1.524 m) | Wt 114 lb 11.2 oz (52 kg) | SpO2 96% | BMI 22.40 kg/m Constitutional: vitals reviewed, AAOx3 NAD normal built appears comfortable Eyes/ENT: No conjunctival erythema or icterus Cardiovasc: No carotid bruit, no JVD, S1 S2 RRR no murmur, no gallop, no rub, lo ud precordial bruit from Av fistula No LE edema GI: Abd soft not tender no masses not tender, liver/spleen not palpable, no exce ssive pulsations no bruit Resp: B lungs clear no rales no wheezes Musculoskeletal: no joint swelling, no deformity Skin: No rash, no ulcers Neuro: awake, alert, oriented, speech normal, bilateral upper and lower extremit y strength normal Hem/Lymph/imm: No adenopathy CTA of the coronaries 12/19/18: suggests LAD stent is patent. RCA is anamolous or igin and courses inbtw AO-PA and has moderate stenosis. CD of the [facility] done outside At [facility] in 03/02/18 received and reviewed by . Agus garcia interpretation is ; LM: mild LI, LAD: mid severe stenosis (PCI done same day w ith a stent), D1 50% medium size , LCx: proximal 30%, OM1-2 mild LI, RCA; large dominant vessel, nonselective injection, anamolous LCC origin, grossly no severe stenosis (on limited nonselective angiogram). EKG 11/20/18: normal sinus rhythm 60 ECHO 2016; LVEF normal, RV normal ECHO 09/27/18: outside; LVEF 55%, PAS >60, RV normal size and function EKG 09/29/18; outside records; Atrial fib ECHO 02/2018: LVEF 55%, PAS >40, moderate MR/TR. LHC/PCI 03/12/18: mLAD stent 2.5 Resolute [place], RCA anamolous from [facility] A/P; -Pre renal Tx Cv evaluation; patient referred for eval of pulm HTN (baseed on EC HO) and CAD/PCI. Based on eval with CTA heart/MIBI the LAD stent is patent, and anamolous RCA is no associated with significant ischemia. Therefore patient now only needs RHC for eval of pulm HTN .Details of risks, benefits and alternatives (including medical management) for evaluation of pulm HTN discussed with the pa tient/son, risks benefits and alternatives of RHC (including risk of bleeding, b lood transfusion, heart attack, stroke, renal failure, dialysis, ) discusse d with the pt in detail. All options reviewed and all questions answered. Pt agr ees to proceed with RHC. Pt agrees to [facility] for RHC and understands no CTS on site and need for transfer to nearby hospital in case of major complication. -CAD/LHC/PCI 03/12/18: mLAD stent 2.5 Resolute [place], RCA anamolous from [facility] (at [facility], no chest pain/SOB per pt), is here for pre renal Tx CV evaluation. Rev iew of the [facility] from 02/2018, CTA of heart and MIBI there is no residual coronary ischemia. Continue aggressive medical rx. -p atrial fibrillation detected 09/2018,TIA in 09/2018, patient has ILR placed Dr Wen office 10/2018 (for eval of atrial fibrillation), now on warfarin anticogul ation being managed by Dr De Jesus office. -ESRD on HD since 2016 -HTN: contnue current meds for now. Dialysis related. -TIA (09/2018) -f/u with me in 6 months and PRN. Plan schedule for RHC. documented in this encounter Plan of Treatment Health Maintenance Due Date Last Done Comments DTaP,Tdap,and Td Vaccines 1972 (1 - Tdap) COLONOSCOPY 11/13/2003 Zoster Recombinant 11/13/2003 Vaccine (SHINGRIX) (1 of 2) Medicare Wellness Visit 2018 Osteoporosis Screening 2018 PNEUMOCOCCAL VACCINES 65+ 2018 11/03/2017 (1 of 2 - PCV13) INFLUENZA VACCINE (#1) 2019 02/16/2017 MAMMOGRAM 05/16/2019 05/16/2018 HEPATITIS C (HCV) SCREEN Completed 03/07/2018 documented as of this encounter Results Not on filedocumented in this encounter Visit Diagnoses Diagnosis Coronary artery disease involving [place] coronary artery of [place] heart with other form of angina pectoris - Primary History of PTCA Postsurgical percutaneous transluminal coronary angioplasty status ESRD (end stage renal disease) End stage renal disease Pulmonary HTN Other chronic pulmonary heart diseases documented in this encounter Insurance Type Payer Benefit Subscriber ID Effective Phone Address Plan / Dates Group Medicare MEDICARE MEDICARE xxxxxxxxxxx 2018- [phone] [address] Present [id number] [place] [phone] documented as of this encounter"
--- OUTSIDE RECORDS SUMMARY | 2019-05-06 06:58 | XMS REPORT | Summary of Care ---
Author Author [facility] - Health Organization [facility] - Health Address Unknown Phone Unavailable Care Team Providers Care Surface Mount Technology Operator Name Role Phone Sumit Almaguer PCP Reason for Visit * Radiology Services (Routine) Referred By Contact Referred To Contact Status Reason Specialty Diagnoses / Procedures Emeka Frey MD [address] [address] Authorized Diagnostic Diagnoses Radiology Coronary artery disease involving [place] coronary artery of [place] heart with other form of angina pectoris History of PTCA Pre-operative cardiovascular examination P rocedures NM MYOCARDIUM PERFUSION STRESS AND REST Encounter Details Care Team Description Date Type Department Emeka Frey MD [address] [id number] Arrived 01/23/2019 [facility] Diagnostic Encounter Imaging, [address] [phone] Allergies No Known Allergiesdocumented as of this encounter (statuses as of 01/24/2019) Medications End Date Status Medication Sig Dispensed [...] stage renal disease), Coronary artery disease involving [place] coronary artery of [place] heart with other form of angina pectoris, History of PTCA, Pulmonary HTN, Abnormal cardiovascular function study Active ELIQUIS 2.5 mg Take 2.5 mg 6 tabletIndications: by mouth 2 9 Pre-operative (two) times cardiovascular daily. examination, ESRD (end stage renal disease), Coronary artery disease involving [place] coronary artery of [place] heart with other form of angina pectoris, History of PTCA, Pulmonary HTN, Abnormal cardiovascular function study Active insulin lispro (HUMALOG inject 8 0 U-100 INSULIN Units under SC)Indications: the skin 3 Pre-operative (three) times cardiovascular daily with examination, ESRD (end meals. stage renal disease), Coronary artery disease involving [place] coronary artery of [place] heart with other form of angina pectoris, History of PTCA, Pulmonary HTN, Abnormal cardiovascular function study Active insulin degludec (TRESIBA inject 8 0 U-100 INSULIN Units under SC)Indications: the skin at Pre-operative bedtime. cardiovascular examination, ESRD (end stage renal disease), Coronary artery disease involving [place] coronary artery of [place] heart with other form of angina pectoris, History of PTCA, Pulmonary HTN, Abnormal cardiovascular function study Active amLODIPine 10 mg Take 10 mg by 0 tabletIndications: mouth daily. Pre-operative cardiovascular examination, ESRD (end stage renal disease), Coronary artery disease involving [place] coronary artery of [place] heart with other form of angina pectoris, History of PTCA, Pulmonary HTN, Abnormal cardiovascular function study documented as of this encounter (statuses as of 01/24/2019) Active Problems Not on filedocumented as of this encounter (statuses as of 01/24/2019) Immunizations Name Administration Dates Next Due Hep [...] Signs Not on filedocumented in this encounter Progress Notes * Kaur Arambula FNP - 01/23/2019 11:45 AM CDT Non-Invasive Cardiac Testing Date of test: 01/23/2019 Referring MD: Emeka Frey MD Procedure Performed: Nuclear Medicine Stress Timeout performed: YES Medication injected: Lexiscan IV Pre-test BP & HR: 135/75 63 Post-test BP & HR: 132/64 74 Pre EKG: Sinus rhythm Post EKG: Sinus Rhythm, no ST changes, no arrhythmias, no ectopy Complications: NONE Symptoms: nausea After informed consent, patient was placed on monitoring with serial EKGS and vi tals. IV Lexiscan 0.4mg/5 mL given. Patient complained of nausea which resolved. After the procedure, the patient stayed with the monitoring nurse and tech for imaging. Patient was in no acute distress with respirations even and unlabored. documented in this encounter Plan of Treatment Care Team Description Date Type Specialty Emeka Frey MD [id number] [place] [address] [phone] 03/05/2019 Office Visit Cardiology Health Maintenance Due [...] Results Not on filedocumented in this encounter Administered Medications Action Date Dose Rate Site Medication Order MAR Action 01/23/2019 11:39 AM CDT 0.4 mg Regadenoson (LEXISCAN) injection 0.4 mg Given 0.4 mg, Slow IV Push, ONCE, 1 dose, 01/23/19 at 1245, Routine, ensemble member approving Restricted medication: KAUR ARAMBULA 01/23/2019 11:39 AM CDT 37 millicuries tc 99m-tetrofosmin (MYOVIEW) injection Given 37 millicurie 37 millicurie, Intravenous, ONCE, 1 dose, 01/23/19 at 1345, Routine documented in this encounter Insurance Type Payer Benefit Subscriber ID Effective Phone Address Plan / Dates Group Medicare MEDICARE MEDICARE xxxxxxxxxxx 2018- [phone] [address] Present [id number] [place] [phone] documented as of this encounter
--- OUTSIDE RECORDS SUMMARY | 2019-05-06 06:58 | XMS REPORT | Summary of Care ---
Author Author [facility] - Health Organization [facility] - Health Address Unknown Phone Unavailable Care Team Providers Care Director Of Hotel Operations Name Role Phone Sumit Almaguer PCP Reason for Visit * Reason Comments Results Encounter Details Care Team Description Date Type Department Emeka Frey MD [address] [facility] [id number] [place] [address] Results 01/24/2019 Telephone [facility] Cardiac Catheterization Lab [facility], 6th Floor [address] [facility] [address], [address] [place] [address] Allergies No Known Allergiesdocumented as of this [...] stage renal disease), Coronary artery disease involving [place] coronary artery of [place] heart with other form of angina pectoris, History of PTCA, Pulmonary HTN, Abnormal cardiovascular function study Active ELIQUIS 2.5 mg Take 2.5 mg 6 tabletIndications: by mouth 2 9 Pre-operative (two) times cardiovascular daily. examination, ESRD (end stage renal disease), Coronary artery disease involving [place] coronary artery of [place] heart with other form of angina pectoris, History of PTCA, Pulmonary HTN, Abnormal cardiovascular function study Active insulin lispro (HUMALOG inject 8 0 U-100 INSULIN Units under SC)Indications: the skin 3 Pre-operative (three) times cardiovascular daily with examination, ESRD (end meals. stage renal disease), Coronary artery disease involving [place] coronary artery of [place] heart with other form of angina pectoris, History of PTCA, Pulmonary HTN, Abnormal cardiovascular function study Active insulin degludec (TRESIBA inject 8 0 U-100 INSULIN Units under SC)Indications: the skin at Pre-operative bedtime. cardiovascular examination, ESRD (end stage renal disease), Coronary artery disease involving [place] coronary artery of [place] heart with other form of angina pectoris, History of PTCA, Pulmonary HTN, Abnormal cardiovascular function study Active amLODIPine 10 mg Take 10 mg by 0 tabletIndications: mouth daily. Pre-operative cardiovascular examination, ESRD (end stage renal disease), Coronary artery disease involving [place] coronary artery of [place] heart with other form of angina pectoris, [...] Specialty Emeka Frey MD [address] [id number] [place] [address] [phone] 01/25/2019 Office Visit Cardiology Health Maintenance Due Date [...] Dates Group Medicare MEDICARE MEDICARE xxxxxxxxxxx 2018- [phone] Present [id number] [place] [id number] documented as of this encounter
--- OUTSIDE RECORDS SUMMARY | 2019-05-06 06:58 | XMS REPORT | Summary of Care ---
Author Author [facility] - Health Organization [facility] - Health Address Unknown Phone Unavailable Care Team Providers Care Schedule Supervisor Name Role Phone Sumit Almaguer PCP Encounter Details Care Team Description Date Type Department Emeka Frey MD [address] [facility] [id number] [place] [address] Arrived 01/23/2019 [facility] Diagnostic Encounter Imaging, [address] [address] Allergies No Known Allergiesdocumented as [...] stage renal disease), Coronary artery disease involving [place] coronary artery of [place] heart with other form of angina pectoris, History of PTCA, Pulmonary HTN, Abnormal cardiovascular function study Active ELIQUIS 2.5 mg Take 2.5 mg 6 tabletIndications: by mouth 2 9 Pre-operative (two) times cardiovascular daily. examination, ESRD (end stage renal disease), Coronary artery disease involving [place] coronary artery of [place] heart with other form of angina pectoris, History of PTCA, Pulmonary HTN, Abnormal cardiovascular function study Active insulin lispro (HUMALOG inject 8 0 U-100 INSULIN Units under SC)Indications: the skin 3 Pre-operative (three) times cardiovascular daily with examination, ESRD (end meals. stage renal disease), Coronary artery disease involving [place] coronary artery of [place] heart with other form of angina pectoris, History of PTCA, Pulmonary HTN, Abnormal cardiovascular function study Active insulin degludec (TRESIBA inject 8 0 U-100 INSULIN Units under SC)Indications: the skin at Pre-operative bedtime. cardiovascular examination, ESRD (end stage renal disease), Coronary artery disease involving [place] coronary artery of [place] heart with other form of angina pectoris, History of PTCA, Pulmonary HTN, Abnormal cardiovascular function study Active amLODIPine 10 mg Take 10 mg by 0 tabletIndications: mouth daily. Pre-operative cardiovascular examination, ESRD (end stage renal disease), Coronary artery disease involving [place] coronary artery of [place] heart with other form of angina pectoris, [...] Specialty Emeka Frey MD [address] [id number] [place] [address] [phone] 03/05/2019 Office Visit Cardiology Date/Time Name Type Priority Associated Diagnoses 01/23/2019 12:46 PM CDT NM MYOCARDIUM PERFUSION IMAGING Routine Coronary artery disease STRESS AND REST involving [place] coronary artery of [place] heart with other form of angina pectoris History of PTCA Pre-operative cardiovascular examination Health Maintenance Due Date Last Done Comments [...] Dates Group Medicare MEDICARE MEDICARE xxxxxxxxxxx 2018- [phone] [address] Present [id number] [place] [phone] documented as of this encounter
--- OUTSIDE RECORDS SUMMARY | 2019-05-06 06:58 | XMS REPORT | Summary of Care ---
Author Author [facility] - Health Organization [facility] - Health Address Unknown Phone Unavailable Care Team Providers Care Ginger Farmer Name Role Phone Sumit Almaguer PCP Reason for Referral * (Routine) Referred By Contact Referred To Contact Status Reason Specialty Diagnoses / Procedures Emeka Frey MD [address] [facility] [id number] [place] [id number] New Request Cardiology Diagnoses History of PTCA Coronary artery disease involving [place] coronary artery of [place] heart with other form of angina pectoris ESRD (end stage renal disease) Pulmonary HTN P rocedures Cardiac Cath Request for Service (Cardiology Use Only) Reason for Visit * Reason Comments Follow-up Encounter Details Care Team Description Date Type Department Emeka Frey MD [address] [facility] [id number] [place] [address] Coronary artery disease involving [place] coronary artery of [place] heart with other form of angina pectoris (Primary Dx); History of PTCA; ESRD (end stage renal disease); Pulmonary HTN 01/25/2019 Office Visit [facility] Cardiology- [address] [address] Allergies No Known Allergiesdocumented as [...] stage renal disease), Coronary artery disease involving [place] coronary artery of [place] heart with other form of angina pectoris, History of PTCA, Pulmonary HTN, Abnormal cardiovascular function study Active insulin lispro (HUMALOG inject 8 0 U-100 INSULIN Units under SC)Indications: the skin 3 Pre-operative (three) times cardiovascular daily with examination, ESRD (end meals. stage renal disease), Coronary artery disease involving [place] coronary artery of [place] heart with other form of angina pectoris, History of PTCA, Pulmonary HTN, Abnormal cardiovascular function study Active insulin degludec (TRESIBA inject 8 0 U-100 INSULIN Units under SC)Indications: the skin at Pre-operative bedtime. cardiovascular examination, ESRD (end stage renal disease), Coronary artery disease involving [place] coronary artery of [place] heart with other form of angina pectoris, History of PTCA, Pulmonary HTN, Abnormal cardiovascular function study Active amLODIPine 10 mg Take 10 mg by 0 tabletIndications: mouth daily. Pre-operative cardiovascular examination, ESRD (end stage renal disease), Coronary artery disease involving [place] coronary artery of [place] heart with other form of angina pectoris, History of PTCA, Pulmonary HTN, Abnormal cardiovascular function study Active warfarin 5 mg Take 5 mg by 0 tabletIndications: atrial mouth. fibrillation Indications: atrial fibrillation 01/25/2019 Discontinued ELIQUIS 2.5 mg Take 2.5 mg 6 tabletIndications: by mouth 2 9 Pre-operative (two) times cardiovascular daily. examination, ESRD (end stage renal disease), Coronary artery disease involving [place] coronary artery of [place] heart with other form of angina pectoris, [...] in this encounter Progress Notes * Emeka Frey MD - 01/25/2019 3:00 PM CDT IC Consult f/u note Referring renal tx service Dr Lange. CC; Pre renal TX CV evaluation 63 yo female with DM II on insulin, ESRD on HD since 2016, HTN, TIA (09/2018, p a trial fibrillation, CAD/PCI of mLAD in 02/2018 (at [facility], no chest pain/SOB p er pt), patient [...] stent 2.5 [facility] [place], RCA anamolous from [facility] (at [facility], no chest pain/SOB per pt), -Patient was in [facility] for high K/weakness/syncope in 10/15 18. -p atrial fibrillation detected 09/2018,patient has ILR placed Dr Wen office 2018 (for eval of atrial fibrillation), -Anamolous RCA from [facility] -DM II on insulin -ESRD on HD [...] and has moderate stenosis. CD of the [facility] done outside At [facility] in 03/02/18 received and reviewed by [...] MR/TR. LHC/PCI 03/12/18: mLAD stent 2.5 [facility] [place], RCA anamolous from [facility] A/P; -Pre renal Tx Cv evaluation; patient [...] to proceed with RHC. Pt agrees to [facility] for RHC and understands no CTS on site and need for transfer to nearby hospital in case of major complication. -CAD/LHC/PCI 03/12/18: mLAD stent 2.5 [facility] [place], RCA anamolous from [facility] (at [facility], no chest pain/SOB per pt), is here for pre renal Tx CV evaluation. Rev iew of the [facility] from 02/2018, CTA of heart and MIBI [...] Visit Diagnoses Diagnosis Coronary artery disease involving [place] coronary artery of [place] heart with other form of angina pectoris - Primary History of PTCA Postsurgical percutaneous transluminal coronary angioplasty status ESRD (end stage renal disease) End stage renal disease Pulmonary HTN Other chronic pulmonary heart diseases documented in this encounter Insurance Type Payer Benefit Subscriber ID Effective Phone Address Plan / Dates Group Medicare MEDICARE MEDICARE xxxxxxxxxxx 2018- [phone] [address] Present [id number] [place] [phone] documented as of this encounter"
--- OUTSIDE RECORDS SUMMARY | 2019-05-06 06:58 | XMS REPORT | Summary of Care ---
Author Author [facility] - Health Organization [facility] - Health Address Unknown Phone Unavailable Care Team Providers Care Merchandise Appraiser Name Role Phone Sumit Almaguer PCP Reason for Referral * (Routine) Referred By Contact Referred To Contact Status Reason Specialty Diagnoses / Procedures Emeka Frey MD 301 [facility] [id number] [place] [id number] New Request Cardiology Diagnoses History of PTCA Coronary artery disease involving [place] coronary artery of [place] heart with other form of angina pectoris ESRD (end stage renal disease) Pulmonary HTN P rocedures Cardiac Cath Request for Service (Cardiology Use Only) Reason for Visit * Reason Comments Follow-up Encounter Details Care Team Description Date Type Department Emeka Frey MD 301 [facility] [id number] [place] [address] Coronary artery disease involving [place] coronary artery of [place] heart with other form of angina pectoris (Primary Dx); History of PTCA; ESRD (end stage renal disease); Pulmonary HTN 01/25/[address] [facility] Cardiology- [address] [address] Allergies No Known Allergiesdocumented as [...] stage renal disease), Coronary artery disease involving [place] coronary artery of [place] heart with other form of angina pectoris, History of PTCA, Pulmonary HTN, Abnormal cardiovascular function study Active insulin lispro (HUMALOG inject 8 0 U-100 INSULIN Units under SC)Indications: the skin 3 Pre-operative (three) times cardiovascular daily with examination, ESRD (end meals. stage renal disease), Coronary artery disease involving [place] coronary artery of [place] heart with other form of angina pectoris, History of PTCA, Pulmonary HTN, Abnormal cardiovascular function study Active insulin degludec (TRESIBA inject 8 0 U-100 INSULIN Units under SC)Indications: the skin at Pre-operative bedtime. cardiovascular examination, ESRD (end stage renal disease), Coronary artery disease involving [place] coronary artery of [place] heart with other form of angina pectoris, History of PTCA, Pulmonary HTN, Abnormal cardiovascular function study Active amLODIPine 10 mg Take 10 mg by 0 tabletIndications: mouth daily. Pre-operative cardiovascular examination, ESRD (end stage renal disease), Coronary artery disease involving [place] coronary artery of [place] heart with other form of angina pectoris, History of PTCA, Pulmonary HTN, Abnormal cardiovascular function study Active warfarin 5 mg Take 5 mg by 0 tabletIndications: atrial mouth. fibrillation Indications: atrial fibrillation 01/25/2019 Discontinued ELIQUIS 2.5 mg Take 2.5 mg 6 tabletIndications: by mouth 2 9 Pre-operative (two) times cardiovascular daily. examination, ESRD (end stage renal disease), Coronary artery disease involving [place] coronary artery of [place] heart with other form of angina pectoris, [...] fibrillation, CAD/PCI of mLAD in 02/2018 (at [facility], no chest pain/SOB p er pt), patient [...] PMH/PSH: -CAD/LHC/PCI 03/12/18: mLAD stent 2.5 [facility] [place], RCA anamolous from [facility] (at [facility], no chest pain/SOB per pt), -Patient was in [facility] for high K/weakness/syncope in 10/15 18. -p atrial fibrillation detected 09/2018,patient has ILR placed Dr Wen office 2018 (for eval of atrial fibrillation), -Anamolous RCA from [facility] -DM II on insulin -ESRD on HD [...] and has moderate stenosis. CD of the [facility] done outside At [facility] in 03/02/18 received and reviewed by [...] MR/TR. LHC/PCI 03/12/18: mLAD stent 2.5 [facility] [place], RCA anamolous from [facility] A/P; -Pre renal Tx Cv evaluation; patient [...] to proceed with RHC. Pt agrees to [facility] for RHC and understands no CTS on site and need for transfer to nearby hospital in case of major complication. -CAD/LHC/PCI 03/12/18: mLAD stent 2.5 [facility] [place], RCA anamolous from [facility] (at [facility], no chest pain/SOB per pt), is here for pre renal Tx CV evaluation. Rev iew of the [facility] from 02/2018, CTA of heart and MIBI [...] Specialty Emeka Frey MD [address] [id number] [place] [address] [phone] 07/23/2019 Office Visit Cardiology Health Maintenance Due Date [...] Visit Diagnoses Diagnosis Coronary artery disease involving [place] coronary artery of [place] heart with other form of angina pectoris - Primary History of PTCA Postsurgical percutaneous transluminal coronary angioplasty status ESRD (end stage renal disease) End stage renal disease Pulmonary HTN Other chronic pulmonary heart diseases documented in this encounter Insurance Type Payer Benefit Subscriber ID Effective Phone Address Plan / Dates Group Medicare MEDICARE MEDICARE xxxxxxxxxxx 2018- [phone] [address] Present [id number] [place] [phone] documented as of this encounter"
--- OUTSIDE RECORDS SUMMARY | 2019-05-06 06:58 | XMS REPORT | Summary of Care ---
Author Author [facility] - Health Organization [facility] - Health Address Unknown Phone Unavailable Care Team Providers Care Communication Assistant Name Role Phone Sumit Almaguer PCP Encounter Details Care Team Description Date Type Department Emeka Frey MD [address] [facility] [id number] [place] [address] Arrived 01/23/2019 [facility] Diagnostic Encounter Imaging, [address] [address] Allergies No Known Allergiesdocumented as [...] stage renal disease), Coronary artery disease involving [place] coronary artery of [place] heart with other form of angina pectoris, History of PTCA, Pulmonary HTN, Abnormal cardiovascular function study Active ELIQUIS 2.5 mg Take 2.5 mg 6 tabletIndications: by mouth 2 9 Pre-operative (two) times cardiovascular daily. examination, ESRD (end stage renal disease), Coronary artery disease involving [place] coronary artery of [place] heart with other form of angina pectoris, History of PTCA, Pulmonary HTN, Abnormal cardiovascular function study Active insulin lispro (HUMALOG inject 8 0 U-100 INSULIN Units under SC)Indications: the skin 3 Pre-operative (three) times cardiovascular daily with examination, ESRD (end meals. stage renal disease), Coronary artery disease involving [place] coronary artery of [place] heart with other form of angina pectoris, History of PTCA, Pulmonary HTN, Abnormal cardiovascular function study Active insulin degludec (TRESIBA inject 8 0 U-100 INSULIN Units under SC)Indications: the skin at Pre-operative bedtime. cardiovascular examination, ESRD (end stage renal disease), Coronary artery disease involving [place] coronary artery of [place] heart with other form of angina pectoris, History of PTCA, Pulmonary HTN, Abnormal cardiovascular function study Active amLODIPine 10 mg Take 10 mg by 0 tabletIndications: mouth daily. Pre-operative cardiovascular examination, ESRD (end stage renal disease), Coronary artery disease involving [place] coronary artery of [place] heart with other form of angina pectoris, [...] Type Specialty Emeka Frey MD [id number] [place] [address] [phone] 03/05/2019 Office Visit Cardiology Health Maintenance Due [...] Rate Site Medication Order MAR Action 01/23/2019 10:45 AM CDT 12 millicuries tc 99m-tetrofosmin (MYOVIEW) injection Given 12 millicurie 12 millicurie, Intravenous, ONCE, 1 dose, 01/23/19 at 1215, Routine documented in this encounter Insurance Type Payer Benefit Subscriber ID Effective Phone Address Plan / Dates Group Medicare MEDICARE MEDICARE xxxxxxxxxxx 2018- [phone] [address] Present [id number] [place] [phone] documented as of this encounter
--- OUTSIDE RECORDS SUMMARY | 2019-05-06 06:58 | XMS REPORT | Summary of Care ---
Author Author [facility] - Health Organization [facility] - Health Address Unknown Phone Unavailable Care Team Providers Care Rn Outpatient Surgery Name Role Phone Sumit Almaguer PCP Encounter Details Care Team Description Date Type Department Emeka Frey MD [address] [facility] [id number] [place] [address] Arrived 01/23/2019 [facility] Diagnostic Encounter Imaging, [address] [address] Allergies No Known Allergiesdocumented as [...] stage renal disease), Coronary artery disease involving [place] coronary artery of [place] heart with other form of angina pectoris, History of PTCA, Pulmonary HTN, Abnormal cardiovascular function study Active ELIQUIS 2.5 mg Take 2.5 mg 6 tabletIndications: by mouth 2 9 Pre-operative (two) times cardiovascular daily. examination, ESRD (end stage renal disease), Coronary artery disease involving [place] coronary artery of [place] heart with other form of angina pectoris, History of PTCA, Pulmonary HTN, Abnormal cardiovascular function study Active insulin lispro (HUMALOG inject 8 0 U-100 INSULIN Units under SC)Indications: the skin 3 Pre-operative (three) times cardiovascular daily with examination, ESRD (end meals. stage renal disease), Coronary artery disease involving [place] coronary artery of [place] heart with other form of angina pectoris, History of PTCA, Pulmonary HTN, Abnormal cardiovascular function study Active insulin degludec (TRESIBA inject 8 0 U-100 INSULIN Units under SC)Indications: the skin at Pre-operative bedtime. cardiovascular examination, ESRD (end stage renal disease), Coronary artery disease involving [place] coronary artery of [place] heart with other form of angina pectoris, History of PTCA, Pulmonary HTN, Abnormal cardiovascular function study Active amLODIPine 10 mg Take 10 mg by 0 tabletIndications: mouth daily. Pre-operative cardiovascular examination, ESRD (end stage renal disease), Coronary artery disease involving [place] coronary artery of [place] heart with other form of angina pectoris, [...] Specialty Emeka Frey MD [id number] [place] [address] [phone] 03/05/2019 Office Visit Cardiology Date/Time Name Type Priority Associated Diagnoses 01/23/2019 12:46 PM CDT NM MYOCARDIUM PERFUSION IMAGING Routine Coronary artery disease STRESS AND REST involving [place] coronary artery of [place] heart with other form of angina pectoris [...] Dates Group Medicare MEDICARE MEDICARE xxxxxxxxxxx 2018- [phone] [address] Present [id number] [place] [id number] documented as of this encounter
--- OUTSIDE RECORDS SUMMARY | 2019-05-06 06:58 | XMS REPORT | Summary of Care ---
Author Author [facility] - Health Organization [facility] - Health Address Unknown Phone Unavailable Care Team Providers Care Filer And Sander Name Role Phone Sumit Almaguer PCP Encounter Details Care Team Description Date Type Department Emeka Frey MD [address] [facility] [id number] [place] [address] Canceled (ERROR) 01/21/2019 [facility] Diagnostic Encounter Imaging, [address] [address] Allergies No Known Allergiesdocumented as of this encounter (statuses as of 01/22/2019) Medications End Date Status Medication Sig Dispensed [...] stage renal disease), Coronary artery disease involving [place] coronary artery of [place] heart with other form of angina pectoris, History of PTCA, Pulmonary HTN, Abnormal cardiovascular function study Active ELIQUIS 2.5 mg Take 2.5 mg 6 tabletIndications: by mouth 2 9 Pre-operative (two) times cardiovascular daily. examination, ESRD (end stage renal disease), Coronary artery disease involving [place] coronary artery of [place] heart with other form of angina pectoris, History of PTCA, Pulmonary HTN, Abnormal cardiovascular function study Active insulin lispro (HUMALOG inject 8 0 U-100 INSULIN Units under SC)Indications: the skin 3 Pre-operative (three) times cardiovascular daily with examination, ESRD (end meals. stage renal disease), Coronary artery disease involving [place] coronary artery of [place] heart with other form of angina pectoris, History of PTCA, Pulmonary HTN, Abnormal cardiovascular function study Active insulin degludec (TRESIBA inject 8 0 U-100 INSULIN Units under SC)Indications: the skin at Pre-operative bedtime. cardiovascular examination, ESRD (end stage renal disease), Coronary artery disease involving [place] coronary artery of [place] heart with other form of angina pectoris, History of PTCA, Pulmonary HTN, Abnormal cardiovascular function study Active amLODIPine 10 mg Take 10 mg by 0 tabletIndications: mouth daily. Pre-operative cardiovascular examination, ESRD (end stage renal disease), Coronary artery disease involving [place] coronary artery of [place] heart with other form of angina pectoris, History of PTCA, Pulmonary HTN, Abnormal cardiovascular function study documented as of this encounter (statuses as of 01/22/2019) Active Problems Not on filedocumented as of this encounter (statuses as of 01/22/2019) Immunizations Name Administration Dates Next Due Hep [...] Date Type Specialty Emeka Frey MD [address] [facility] [id number] [place], [place] [address] 01/23/2019 Appointment Radiology Emeka Frey MD [address] [facility] [id number] [place] [address] [phone] 01/23/2019 Appointment Radiology Emeka Frey MD [address] [id number] [place], [place] [address] 01/23/2019 Appointment Radiology Emeka Frey MD [address] [id number] [place], [place] [address] 01/23/2019 Appointment Radiology Emeka Frey MD [address] [id number] [place], [place] [address] 03/05/2019 Office Visit Cardiology Health Maintenance Due [...] Dates Group Medicare MEDICARE MEDICARE xxxxxxxxxxx 2018- [phone] [address] Present [id number] [place] [id number] documented as of this encounter
--- OUTSIDE RECORDS SUMMARY | 2019-05-06 06:58 | XMS REPORT | Summary of Care ---
Author Author [facility] - Health Organization [facility] - Health Address Unknown Phone Unavailable Care Team Providers Care Child Study Team Director Name Role Phone Sumit Almaguer PCP Reason for Referral * Radiology Services (Routine) Referred By Contact Referred To Contact Status Reason Specialty Diagnoses / Procedures Emeka Frey MD 301 [place] [address] Authorized Diagnostic Diagnoses Radiology Coronary artery disease involving [place] coronary artery of [place] heart with other form of angina pectoris History of PTCA Pre-operative cardiovascular examination P rocedures NM MYOCARDIUM PERFUSION STRESS AND REST * Radiology Services (Routine) Referred By Contact Referred To Contact Status Reason Specialty Diagnoses / Procedures Emeka Frey MD 301 [place] [address] Authorized Diagnostic Diagnoses Radiology Coronary artery disease involving [place] coronary artery of [place] heart with other form of angina pectoris History of PTCA Pre-operative cardiovascular examination P rocedures NM MYOCARDIUM PERFUSION STRESS AND REST Reason for Visit * Radiology Services (Routine) Referred By Contact Referred To Contact Status Reason Specialty Diagnoses / Procedures Emeka Frey MD [address] [place] [address] Authorized Diagnostic Diagnoses Radiology Coronary artery disease involving [place] coronary artery of [place] heart with other form of angina pectoris History of PTCA Pre-operative cardiovascular examination P rocedures NM MYOCARDIUM PERFUSION STRESS AND REST Encounter Details Care Team Description Date Type Department Emeka Frey MD [address] [id number] [place] [address] [phone] Canceled (ERROR) 01/21/2019 [facility] Diagnostic Encounter Imaging, [facility] [address] [place] [address] Allergies No Known Allergiesdocumented as of this [...] stage renal disease), Coronary artery disease involving [place] coronary artery of [place] heart with other form of angina pectoris, History of PTCA, Pulmonary HTN, Abnormal cardiovascular function study Active ELIQUIS 2.5 mg Take 2.5 mg 6 tabletIndications: by mouth 2 9 Pre-operative (two) times cardiovascular daily. examination, ESRD (end stage renal disease), Coronary artery disease involving [place] coronary artery of [place] heart with other form of angina pectoris, History of PTCA, Pulmonary HTN, Abnormal cardiovascular function study Active insulin lispro (HUMALOG inject 8 0 U-100 INSULIN Units under SC)Indications: the skin 3 Pre-operative (three) times cardiovascular daily with examination, ESRD (end meals. stage renal disease), Coronary artery disease involving [place] coronary artery of [place] heart with other form of angina pectoris, History of PTCA, Pulmonary HTN, Abnormal cardiovascular function study Active insulin degludec (TRESIBA inject 8 0 U-100 INSULIN Units under SC)Indications: the skin at Pre-operative bedtime. cardiovascular examination, ESRD (end stage renal disease), Coronary artery disease involving [place] coronary artery of [place] heart with other form of angina pectoris, History of PTCA, Pulmonary HTN, Abnormal cardiovascular function study Active amLODIPine 10 mg Take 10 mg by 0 tabletIndications: mouth daily. Pre-operative cardiovascular examination, ESRD (end stage renal disease), Coronary artery disease involving [place] coronary artery of [place] heart with other form of angina pectoris, [...] Date Type Specialty Emeka Frey MD [address] [id number] 01/23/2019 Appointment Radiology Emeka Frey MD [address] [id number] 01/23/2019 Appointment Radiology Emeka Frey MD [address] [id number] 01/23/2019 Appointment Radiology Emeka Frey MD [address] [phone] 01/23/2019 Appointment Radiology Emeka Frey MD [address] [id number] 03/05/2019 Office Visit Cardiology Order Schedule Name Type Priority Associated Diagnoses 1 Occurrences starting 01/21/2019 until 01/21/2019 NM MYOCARDIUM PERFUSION IMAGING Routine Coronary artery disease STRESS AND REST involving [place] coronary artery of [place] heart with other form of angina pectoris [...] Visit Diagnoses Diagnosis Coronary artery disease involving [place] coronary artery of [place] heart with other form of angina pectoris History of PTCA Postsurgical percutaneous transluminal coronary angioplasty status Pre-operative cardiovascular examination documented in this encounter Insurance Type Payer Benefit Subscriber ID Effective Phone Address Plan / Dates Group Medicare MEDICARE MEDICARE xxxxxxxxxxx 2018- [phone] [address] Present [id number] [place] [id number] documented as of this encounter
--- OUTSIDE RECORDS SUMMARY | 2019-05-06 06:58 | XMS REPORT | Summary of Care ---
Author Author [facility] - Health Organization [facility] - Health Address Unknown Phone Unavailable Care Team Providers Care Dehydrator Tender Name Role Phone Sumit Almaguer PCP Reason for Referral * Radiology Services (Routine) Referred By Contact Referred To Contact Status Reason Specialty Diagnoses / Procedures Emeka Frey MD [address] [place] [id number] New Request Diagnostic Diagnoses Radiology Coronary artery disease involving [place] coronary artery of [place] heart with other form of angina pectoris History of PTCA Pre-operative cardiovascular examination P rocedures NM MYOCARDIUM PERFUSION STRESS AND REST * Radiology Services (Routine) Referred By Contact Referred To Contact Status Reason Specialty Diagnoses / Procedures Emeka Frey MD [address] [place] [address] New Request Diagnostic Diagnoses Radiology Coronary artery disease involving [place] coronary artery of [place] heart with other form of angina pectoris History of PTCA Pre-operative cardiovascular examination P rocedures NM MYOCARDIUM PERFUSION STRESS AND REST Reason for Visit * Reason Comments Results Notification Encounter Details Care Team Description Date Type Department Emeka Frey MD [address] [place] [address] [phone] Results; Notification 01/01/2019 Telephone [facility] [place] [address] [place] [address] Allergies No Known Allergiesdocumented as of this encounter (statuses as of 01/03/2019) Medications End Date Status Medication Sig Dispensed [...] stage renal disease), Coronary artery disease involving [place] coronary artery of [place] heart with other form of angina pectoris, History of PTCA, Pulmonary HTN, Abnormal cardiovascular function study Active ELIQUIS 2.5 mg Take 2.5 mg 6 tabletIndications: by mouth 2 9 Pre-operative (two) times cardiovascular daily. examination, ESRD (end stage renal disease), Coronary artery disease involving [place] coronary artery of [place] heart with other form of angina pectoris, History of PTCA, Pulmonary HTN, Abnormal cardiovascular function study Active insulin lispro (HUMALOG inject 8 0 U-100 INSULIN Units under SC)Indications: the skin 3 Pre-operative (three) times cardiovascular daily with examination, ESRD (end meals. stage renal disease), Coronary artery disease involving [place] coronary artery of [place] heart with other form of angina pectoris, History of PTCA, Pulmonary HTN, Abnormal cardiovascular function study Active insulin degludec (TRESIBA inject 8 0 U-100 INSULIN Units under SC)Indications: the skin at Pre-operative bedtime. cardiovascular examination, ESRD (end stage renal disease), Coronary artery disease involving [place] coronary artery of [place] heart with other form of angina pectoris, History of PTCA, Pulmonary HTN, Abnormal cardiovascular function study Active amLODIPine 10 mg Take 10 mg by 0 tabletIndications: mouth daily. Pre-operative cardiovascular examination, ESRD (end stage renal disease), Coronary artery disease involving [place] coronary artery of [place] heart with other form of angina pectoris, History of PTCA, Pulmonary HTN, Abnormal cardiovascular function study documented as of this encounter (statuses as of 01/03/2019) Active Problems Not on filedocumented as of this encounter (statuses as of 01/03/2019) Immunizations Name Administration Dates Next Due Hep [...] Specialty Emeka Frey MD [address] [id number] 01/21/2019 Appointment Radiology Emeka Frey MD [id number] [place] [address] [id number] 01/21/2019 Appointment Radiology Emeka Frey MD [address] [id number] [place] [address] [phone] 01/21/2019 Appointment Radiology Emeka Frey MD [id number] [place] [address] [id number] 01/21/2019 Appointment Radiology Emeka Frey MD [address] [facility] [address] [phone] 03/05/2019 Office Visit Cardiology Order Schedule Name Type Priority Associated Diagnoses Expected: 01/01/2019, Expires: 02/01/2019 NM MYOCARDIUM PERFUSION IMAGING Routine Coronary artery disease STRESS AND REST involving [place] coronary artery of [place] heart with other form of angina pectoris History of PTCA Pre-operative cardiovascular examination Expected: 01/03/2019, Expires: 01/03/2020 NM MYOCARDIUM PERFUSION IMAGING Routine Coronary artery disease STRESS AND REST involving [place] coronary artery of [place] heart with other form of angina pectoris [...] Visit Diagnoses Diagnosis Coronary artery disease involving [place] coronary artery of [place] heart with other form of angina pectoris - Primary History of PTCA Postsurgical percutaneous transluminal coronary angioplasty status Pre-operative cardiovascular examination documented in this encounter Insurance Type Payer Benefit Subscriber ID Effective Phone Address Plan / Dates Group Medicare MEDICARE MEDICARE xxxxxxxxxxx 2018- [phone] [address] Present [id number] [place] [id number] documented as of this encounter
--- OUTSIDE RECORDS SUMMARY | 2019-05-06 06:58 | XMS REPORT | Summary of Care ---
Author Author [facility] - Health Organization [facility] - Health Address Unknown Phone Unavailable Care Team Providers Care Occupational Therapy Instructor Name Role Phone Sumit Almaguer PCP Encounter Details Care Team Description Date Type Department Doctor Unassigned, [place] [address] [place] [address] 01/21/2019 Orders Only [facility] [address] [place] [address] Allergies No Known Allergiesdocumented as of this encounter (statuses as of 01/21/2019) Medications End Date Status Medication Sig Dispensed [...] stage renal disease), Coronary artery disease involving [place] coronary artery of [place] heart with other form of angina pectoris, History of PTCA, Pulmonary HTN, Abnormal cardiovascular function study Active ELIQUIS 2.5 mg Take 2.5 mg 6 tabletIndications: by mouth 2 9 Pre-operative (two) times cardiovascular daily. examination, ESRD (end stage renal disease), Coronary artery disease involving [place] coronary artery of [place] heart with other form of angina pectoris, History of PTCA, Pulmonary HTN, Abnormal cardiovascular function study Active insulin lispro (HUMALOG inject 8 0 U-100 INSULIN Units under SC)Indications: the skin 3 Pre-operative (three) times cardiovascular daily with examination, ESRD (end meals. stage renal disease), Coronary artery disease involving [place] coronary artery of [place] heart with other form of angina pectoris, History of PTCA, Pulmonary HTN, Abnormal cardiovascular function study Active insulin degludec (TRESIBA inject 8 0 U-100 INSULIN Units under SC)Indications: the skin at Pre-operative bedtime. cardiovascular examination, ESRD (end stage renal disease), Coronary artery disease involving [place] coronary artery of [place] heart with other form of angina pectoris, History of PTCA, Pulmonary HTN, Abnormal cardiovascular function study Active amLODIPine 10 mg Take 10 mg by 0 tabletIndications: mouth daily. Pre-operative cardiovascular examination, ESRD (end stage renal disease), Coronary artery disease involving [place] coronary artery of [place] heart with other form of angina pectoris, History of PTCA, Pulmonary HTN, Abnormal cardiovascular function study documented as of this encounter (statuses as of 01/21/2019) Active Problems Not on filedocumented as of this encounter (statuses as of 01/21/2019) Immunizations Name Administration Dates Next Due Hep [...] Date Type Specialty Emeka Frey MD [address] [facility] [id number] [place] [address] 01/21/2019 Appointment Radiology Emeka Frey MD 301 [facility] [id number] [place] [address] 01/21/2019 Appointment Radiology Emeka Frey MD 301 [facility] [id number] [place] [address] [id number] 01/21/2019 Appointment Radiology Emeka Frey MD 301 [facility] [id number] [place], [place] [address]395 01/21/2019 Appointment Radiology Emeka Frey MD [address] [facility] [id number] [place], [place] [address] 03/05/2019 Office Visit Cardiology Health Maintenance Due [...] Completed 03/07/2018 documented as of this encounter Procedures Comments Procedure Name Priority Date/Time Associated Diagnosis ASSIGNMENT OF BENEFITS Routine 01/21/2019 9:44 AM CDT documented in this encounter Results Not on filedocumented in this encounter Insurance Type Payer Benefit Subscriber ID Effective Phone Address Plan / Dates Group Medicare MEDICARE MEDICARE xxxxxxxxxxx 2018- [phone] [address] Present [id number] [place] [id number] documented as of this encounter
--- OUTSIDE RECORDS SUMMARY | 2019-05-06 06:59 | XMS REPORT | Summary of Care ---
Author Author [facility] - Health Organization [facility] - Health Address Unknown Phone Unavailable Care Team Providers Care Mold Maker Name Role Phone Sumit Almaguer PCP Reason for Visit * Reason Comments Appointment [facility] Encounter Details Care Team Description Date Type Department Emeka Frey MD [address] [facility] [id number] [place] [address] Appointment ([facility]) 02/05/2019 Telephone [facility] Cardiac Catheterization Lab [facility], 6th Floor [address] [facility] [address] [place] [address] Allergies No Known Allergiesdocumented as of this encounter (statuses as of 02/05/2019) Medications End Date Status Medication Sig Dispensed [...] stage renal disease), Coronary artery disease involving [place] coronary artery of [place] heart with other form of angina pectoris, History of PTCA, Pulmonary HTN, Abnormal cardiovascular function study Active insulin lispro (HUMALOG inject 8 0 U-100 INSULIN Units under SC)Indications: the skin 3 Pre-operative (three) times cardiovascular daily with examination, ESRD (end meals. stage renal disease), Coronary artery disease involving [place] coronary artery of [place] heart with other form of angina pectoris, History of PTCA, Pulmonary HTN, Abnormal cardiovascular function study Active insulin degludec (TRESIBA inject 8 0 U-100 INSULIN Units under SC)Indications: the skin at Pre-operative bedtime. cardiovascular examination, ESRD (end stage renal disease), Coronary artery disease involving [place] coronary artery of [place] heart with other form of angina pectoris, History of PTCA, Pulmonary HTN, Abnormal cardiovascular function study Active amLODIPine 10 mg Take 10 mg by 0 tabletIndications: mouth daily. 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 fibrillation Indications: atrial fibrillation documented as of this encounter (statuses as of 02/05/2019) Active Problems Not on filedocumented as of this encounter (statuses as of 02/05/2019) Immunizations Name Administration Dates Next Due Hep [...] Date Type Specialty Emeka Frey MD 301 [facility] [id number] [place], [place] [id number] 07/23/2019 Office Visit Cardiology Health Maintenance Due [...] Dates Group Medicare MEDICARE MEDICARE xxxxxxxxxxx 2018- [phone] [address] Present [id number] [place] [id number] documented as of this encounter
[2019-05-06] MEDS ORDERED: PANTOPRAZOLE 40 MG 10ML VIAL IV STA (07:14)
[2019-05-06] MEDS ORDERED: SODIUM CHLORIDE 0.9% 1000ML 1,000 ML IV STA (07:14)
[2019-05-06] MEDS ORDERED: ASPIRIN 81 MG CHEW TAB PO ONE (07:15)
[2019-05-06 07:29] LABS: BASOPHILS # (AUTO) 0.1 (0.0-0.1); BASOPHILS % 0.4 % (0.0-1.0); EOSINOPHILS # (AUTO) 0.2 (0.0-0.4); EOSINOPHILS % 1.2 % (0.0-6.0); HEMATOCRIT 34.6 % (34.2-44.1); HEMOGLOBIN 11.7 g/dL (12.0-16.0); LYMPHOCYTES # (AUTO) 0.8 (1.0-3.2); LYMPHOCYTES % 5.9 % (18.0-39.1); MEAN CORPUSCULAR HEMOGLOBIN 31.5 pg (28-32); MEAN CORPUSCULAR HGB CONC 33.8 g/dL (31-35); MONOCYTES # (AUTO) 1.3 (0.2-0.8); MONOCYTES % 10.2 % (4.4-11.3); NEUTROPHILS # (AUTO) 10.6 (2.1-6.9); NEUTROPHILS % 81.8 % (38.7-80.0); PLATELET COUNT 186 x10e3/uL (140-360); RED BLOOD COUNT 3.72 x10e6/uL (3.6-5.1); RED CELL DISTRIBUTION WIDTH 13.6 % (11.7-14.4)
[2019-05-06] MEDS ORDERED: ELIQUIS2.5 MG PO (07:38)
[2019-05-06] MEDS ORDERED: AMLODIPINE BESY10 MG PO (07:38)
[2019-05-06] MEDS ORDERED: ATORVASTATIN CA10 MG PO (07:38)
[2019-05-06] MEDS ORDERED: TRESIBA FL100 UNIT/1 SQ (07:38)
[2019-05-06] MEDS ORDERED: METOPROLOL TART50 MG PO (07:38)
[2019-05-06 07:47] LABS: INR 1.14; PROTHROMBIN TIME 15.2 seconds (11.9-14.5)
[2019-05-06 07:48] LABS: PARTIAL THROMBOPLASTIN TIME 34.5 seconds (23.8-35.5)
[2019-05-06 07:57] LABS: ALBUMIN 3.7 g/dL (3.5-5.0); ALBUMIN/GLOBULIN RATIO 1.1 (0.8-2.0); ANION GAP 21.6 mmol/L (8-16); CALCIUM 9.4 mg/dL (8.4-10.2); CREATININE, SERUM 8.56 mg/dL (0.57-1.11); MAGNESIUM 1.9 MG/DL (1.3-2.1); POTASSIUM 4.6 mmol/L (3.5-5.1)
[2019-05-06 07:59] LABS: CREATINE KINASE MB 1.2 ng/mL (0-5.0)
[2019-05-06] MEDS ORDERED: DIAZEPAM 5 MG TAB PO ONE (08:00)
--- NOTE | 2019-05-06 09:04 | Diagnostic Imaging Report ---
Chest, PA and lateral. History: Chest pain, back pain. Comparison: 07/14/2018. Discussion: The cardiac silhouette is stable. Mediastinal and hilar contours are unremarkable. Right subclavian dual-lead pacemaker is in place. No focal consolidation, sizable pleural effusion, or pneumothorax. No acute osseous abnormalities. IMPRESSION: No radiographic evidence of acute cardiopulmonary abnormality. Signed by: Kahlil Calderon MD on 05/06/2019 9:00 AM
--- NOTE | 2019-05-06 09:22 | NUR ---
PER OK TO CANCEL UA. PT DIALYSIS AND ALREADY VOIDED TODAY AND STATES SHE PROBABLY CANT GO AGAIN.
== END 2019-05-06 09:46 | disposition home or self-care (01) ==
LOC: ER 06:54
DX: R06.00 Dyspnea, unspecified (principal); R07.89 Other chest pain; J11.1 Influenza due to unidentified influenza virus with other respiratory manifestations; I12.0 Hypertensive chronic kidney disease with stage 5 chronic kidney disease or end stage renal disease; E11.22 Type 2 diabetes mellitus with diabetic chronic kidney disease; N18.6 End stage renal disease; Z99.2 Dependence on renal dialysis; E78.5 Hyperlipidemia, unspecified; F41.9 Anxiety disorder, unspecified
CPT/HCPCS: 36415; 71046; 80053; 82550; 82553; 83735; 83880; 84484; 85025; 85610; 85730; 87400; 93005; 99284; C9113

== ENCOUNTER 2019-05-16 13:33 | Emergency (ER) | payer MEDICARE, BC ==
[~2019-05-16] VITALS: Ht 153 cm; Wt 47.2 kg
[~2019-05-16 13:33] MED LIST changes: +AMLODIPINE BESY10 MG PO; +ATORVASTATIN CA10 MG PO; +ELIQUIS2.5 MG PO; +METOPROLOL TART50 MG PO; +TRESIBA FL100 UNIT/1 SQ
[2019-05-16] MEDS ORDERED: FAMOTIDINE 20 MG/2 ML VIAL IV ONE ×2 (13:43→18:05)
[2019-05-16] MEDS ORDERED: ONDANSETRON HCL INJ 2MG/ML 2ML 2 MG/ML VIAL IV ONE (13:43)
[2019-05-16] MEDS ORDERED: SODIUM CHLORIDE 0.9% 1000ML 1,000 ML IV ONE (13:45)
--- NOTE | 2019-05-16 15:11 | Diagnostic Imaging Report ---
Exam: KUB - 2 views Indication: Nausea and vomiting Comparison: CT abdomen and pelvis of 03/03/2018 Findings: Partially visualized pacemaker lead. Nonobstructive bowel gas pattern. No free air. Cholecystectomy clips in the right upper quadrant. Mild degenerative changes of the visualized spine and moderate degenerative changes of both hip joints right greater than left. Phleboliths in the pelvis. Impression: Nonobstructive bowel gas pattern. No free air. Signed by: Gagandeep Birmingham MD on 05/16/2019 3:07 PM
[2019-05-16 16:33] LABS: BASOPHILS # (AUTO) 0.1 (0.0-0.1); BASOPHILS % 0.4 % (0.0-1.0); EOSINOPHILS % 0.4 % (0.0-6.0); HEMATOCRIT 29.6 % (34.2-44.1); HEMOGLOBIN 9.6 g/dL (12.0-16.0); LYMPHOCYTES # (AUTO) 0.7 (1.0-3.2); LYMPHOCYTES % 6.6 % (18.0-39.1); MEAN CORPUSCULAR HEMOGLOBIN 31.1 pg (28-32); MEAN CORPUSCULAR HGB CONC 32.4 g/dL (31-35); MEAN CORPUSCULAR VOLUME 95.8 fL (81-99); MONOCYTES # (AUTO) 1.4 (0.2-0.8); MONOCYTES % 12.1 % (4.4-11.3); NEUTROPHILS % 79.6 % (38.7-80.0); PLATELET COUNT 280 x10e3/uL (140-360); RED BLOOD COUNT 3.09 x10e6/uL (3.6-5.1); RED CELL DISTRIBUTION WIDTH 14.6 % (11.7-14.4)
[2019-05-16 16:49] LABS: PHOSPHORUS 4.6 MG/DL (2.3-4.7)
[2019-05-16 16:56] LABS: ALBUMIN 3.1 g/dL (3.5-5.0); ALBUMIN/GLOBULIN RATIO 0.9 (0.8-2.0); ANION GAP 19.1 mmol/L (8-16); CALCIUM 9.3 mg/dL (8.4-10.2); CREATININE, SERUM 4.13 mg/dL (0.57-1.11); POTASSIUM 4.1 mmol/L (3.5-5.1)
[2019-05-16] MEDS ORDERED: ONDANSETRON HCL INJ 2MG/ML 2ML 2 MG/ML VIAL ONE (18:05)
[2019-05-16] MEDS ORDERED: SODIUM CHLORIDE 0.9% 1000ML 1,000 ML ONE (18:05)
--- NOTE | 2019-05-16 19:55 | NUR ---
Multiple attempts by pt to obtain urine sample without straight cath, states doesnt have the urge to urinate and refused cathether. Pt asked to cancel UA, EDITH Ramirez notified, stated ok to cancel and discharge home.
== END 2019-05-16 20:21 | disposition home or self-care (01) ==
LOC: ER 13:33
DX: R53.1 Weakness (principal); E11.22 Type 2 diabetes mellitus with diabetic chronic kidney disease; I12.0 Hypertensive chronic kidney disease with stage 5 chronic kidney disease or end stage renal disease; N18.6 End stage renal disease; Z99.2 Dependence on renal dialysis; Z79.4 Long term (current) use of insulin; Z79.01 Long term (current) use of anticoagulants; Z79.82 Long term (current) use of aspirin; Z95.5 Presence of coronary angioplasty implant and graft
CPT/HCPCS: 36415; 74019; 80053; 83735; 84100; 85025; 87400; 99284; J2405; J7030

== ENCOUNTER → 2020-04-27 | Outpatient (CLI) | payer MEDICARE, BC ==
[~2020-04-27] MED LIST changes: +MECLIZINE HCL12.5 MG PO; +OMEPRAZOLE40 MG PO; +ZOFRAN4 MG SL
== END ==
LOC: DX 10:56
PROVIDERS: ATTEND Internal Medicine Critical Care Medicine
DX: R05 Cough (principal); I77.89 Other specified disorders of arteries and arterioles
CPT/HCPCS: 71250; 74230; 92526; 92611; U0002

== ENCOUNTER 2020-05-18 18:54 | Emergency (ER) | payer MEDICARE, BC ==
[~2020-05-18] VITALS: Ht 152.4 cm; Wt 52.2 kg
[2020-05-18] MEDS ORDERED: ONDANSETRON HCL INJ 2MG/ML 2ML 2 MG/ML VIAL IV STA (19:26)
[2020-05-18] MEDS ORDERED: SODIUM CHLORIDE 0.9% 1000ML 1,000 ML IV STA (19:26)
[2020-05-18] MEDS ORDERED: ONDANSETRON HCL INJ 2MG/ML 2ML 2 MG/ML VIAL ONE (19:57)
[2020-05-18] MEDS ORDERED: SODIUM CHLORIDE 0.9% 1000ML 1,000 ML ONE (19:58)
[2020-05-18] MEDS ORDERED: ZOFRAN4 MG PO (20:28)
[2020-05-18 20:56] VITALS: BP 119/59
== END 2020-05-18 20:58 | disposition home or self-care (01) ==
LOC: FSED 19:20
DX: R11.2 Nausea with vomiting, unspecified (principal); I12.9 Hypertensive chronic kidney disease with stage 1 through stage 4 chronic kidney disease, or unspecified chronic kidney disease; E11.22 Type 2 diabetes mellitus with diabetic chronic kidney disease; N18.9 Chronic kidney disease, unspecified; Z99.2 Dependence on renal dialysis; Z95.5 Presence of coronary angioplasty implant and graft; F41.9 Anxiety disorder, unspecified
CPT/HCPCS: 80048; 80076; 84484; 85025; 93005; 96374; 99283; J2405; J7030

== ENCOUNTER 2020-05-28 22:17 | Emergency (ER) | payer MEDICARE, BC ==
[~2020-05-28] VITALS: Ht 152.4 cm; Wt 52.2 kg
[~2020-05-28 22:17] MED LIST changes: +ZOFRAN4 MG PO
[2020-05-28] MEDS ORDERED: SODIUM CHLORIDE 0.9% 1000ML 1,000 ML IV STA ×2 (22:40)
[2020-05-28] MEDS ORDERED: SODIUM CHLORIDE 0.9% 1000ML 1,000 ML ONE (23:10)
[2020-05-29 00:02] VITALS: BP 127/60
== END 2020-05-29 00:02 | disposition home or self-care (01) ==
LOC: FSED 22:30
DX: I95.9 Hypotension, unspecified (principal); T50.995A Adverse effect of other drugs, medicaments and biological substances, initial encounter; I12.0 Hypertensive chronic kidney disease with stage 5 chronic kidney disease or end stage renal disease; E11.22 Type 2 diabetes mellitus with diabetic chronic kidney disease; N18.6 End stage renal disease; Z99.2 Dependence on renal dialysis; Z95.810 Presence of automatic (implantable) cardiac defibrillator; R94.31 Abnormal electrocardiogram [ECG] [EKG]
CPT/HCPCS: 71045; 80048; 80076; 81003; 82553; 83880; 84484; 85025; 93005; 99284; J7030

== ENCOUNTER 2020-07-09 13:54 | Emergency (ER) | payer BC, MEDICARE ==
[~2020-07-09] VITALS: Ht 152.4 cm; Wt 50.0 kg
[2020-07-09] MEDS ORDERED: SODIUM CHLORIDE 0.9% 500ML 500 ML ONE (14:54)
[2020-07-09] MEDS: SODIUM CHLORIDE FLUSH 10 ML SYR INJ PRN (15:08)
[2020-07-09] MEDS: SODIUM CHLORIDE 0.9% 500ML 500 ML IV ONE (15:08)
[2020-07-09 15:40] VITALS: BP 151/69
== END 2020-07-09 15:57 | disposition home or self-care (01) ==
LOC: EDBD 13:54 → FSED 14:03
DX: I95.9 Hypotension, unspecified (principal); T46.1X5A Adverse effect of calcium-channel blockers, initial encounter; I12.0 Hypertensive chronic kidney disease with stage 5 chronic kidney disease or end stage renal disease; E11.22 Type 2 diabetes mellitus with diabetic chronic kidney disease; N18.6 End stage renal disease; Z99.2 Dependence on renal dialysis; Z95.810 Presence of automatic (implantable) cardiac defibrillator
CPT/HCPCS: 71046; 80053; 82553; 84484; 85025; 99284; J7040

== ENCOUNTER 2020-07-18 20:47 | Emergency (ER) | payer MEDICARE ==
[~2020-07-18] VITALS: Ht 153 cm; Wt 49.9 kg
[2020-07-18] MEDS ORDERED: PROMETHAZINE HCL (IM) 25 MG/ML VIAL IM ONE ×2 (22:15→22:20)
[2020-07-18] MEDS ORDERED: PROMETHAZINE HC50 M1 PR (23:00)
[2020-07-18] MEDS ORDERED: ONDANSETRON ODT4 MG PO (23:00)
== END 2020-07-18 23:37 | disposition home or self-care (01) ==
LOC: FSED 21:45
DX: R11.2 Nausea with vomiting, unspecified (principal); I12.0 Hypertensive chronic kidney disease with stage 5 chronic kidney disease or end stage renal disease; E11.22 Type 2 diabetes mellitus with diabetic chronic kidney disease; N18.6 End stage renal disease; Z99.2 Dependence on renal dialysis; Z95.810 Presence of automatic (implantable) cardiac defibrillator
CPT/HCPCS: 99282; J2550

== ENCOUNTER 2021-03-02 14:02 | Emergency (ER) | payer MEDICARE ==
[~2021-03-02] VITALS: Ht 153 cm; Wt 49.9 kg
[~2021-03-02 14:02] MED LIST changes: +ONDANSETRON ODT4 MG PO; +PROMETHAZINE HC50 M1 PR
== END 2021-03-02 17:12 | disposition home or self-care (01) ==
LOC: ER 14:31
DX: M79.89 Other specified soft tissue disorders (principal); I12.0 Hypertensive chronic kidney disease with stage 5 chronic kidney disease or end stage renal disease; E11.22 Type 2 diabetes mellitus with diabetic chronic kidney disease; N18.6 End stage renal disease; Z99.2 Dependence on renal dialysis; Z95.810 Presence of automatic (implantable) cardiac defibrillator
CPT/HCPCS: 99282

== ENCOUNTER 2021-06-04 09:23 | Emergency (ER) | payer MEDICARE ==
[~2021-06-04] VITALS: Ht 152.4 cm; Wt 46.9 kg
[~2021-06-04 09:23] MED LIST changes: -TERAZOSIN HCL10 MG; +TERAZOSIN HCL10 MG PO
[2021-06-04] MEDS ORDERED: SODIUM CHLORIDE 0.9% 1000ML 1,000 ML IV STA (09:43)
[2021-06-04] MEDS ORDERED: FAMOTIDINE 20 MG/2 ML VIAL IV ONE (09:45)
[2021-06-04] MEDS ORDERED: ONDANSETRON HCL INJ 2MG/ML 2ML 2 MG/ML VIAL IV ONE (09:45)
[2021-06-04] MEDS ORDERED: SODIUM CHLORIDE 0.9% 250ML 250 ML IV ONE (10:00)
[2021-06-04] MEDS ORDERED: DIATRIZOATE MEGL/DIATRIZOA SOD 30 ML BTL PO ONE ×2 (10:08→10:23)
[2021-06-04] MEDS ORDERED: ONDANSETRON HCL INJ 2MG/ML 2ML 2 MG/ML VIAL ONE (10:12)
[2021-06-04] MEDS ORDERED: SODIUM CHLORIDE 0.9% 250ML 250 ML ONE (10:12)
[2021-06-04] MEDS ORDERED: FLEET ENEMA133 ML PR (11:54)
[2021-06-04] MEDS ORDERED: MIRALAX17 GM PO (11:54)
[2021-06-04] MEDS ORDERED: COLACE100 MG PO (11:54)
[2021-06-04] MEDS ORDERED: OMEPRAZOLE20 M2 PO (11:54)
[2021-06-04] MEDS ORDERED: ONDANSETRON ODT4 MG PO (11:54)
[2021-06-07] MEDS ORDERED: BENICAR20 MG PO (15:13)
[2021-06-07] MEDS ORDERED: FAMOTIDINE20 MG PO (15:13)
[2021-06-07] MEDS ORDERED: NIFEDIPINE10 MG PO (15:13)
[2021-06-07] MEDS ORDERED: HYDRALAZINE HC100 MG PO (15:13)
== END 2021-06-04 12:30 | disposition home or self-care (01) ==
LOC: FSED 09:36
DX: R11.2 Nausea with vomiting, unspecified (principal); K29.70 Gastritis, unspecified, without bleeding; K29.80 Duodenitis without bleeding; J06.9 Acute upper respiratory infection, unspecified; K59.00 Constipation, unspecified; I12.0 Hypertensive chronic kidney disease with stage 5 chronic kidney disease or end stage renal disease; E11.22 Type 2 diabetes mellitus with diabetic chronic kidney disease; N18.6 End stage renal disease; Z99.2 Dependence on renal dialysis; E78.5 Hyperlipidemia, unspecified; K21.9 Gastro-esophageal reflux disease without esophagitis; Z95.810 Presence of automatic (implantable) cardiac defibrillator
CPT/HCPCS: 74176; 80053; 85025; 96374; 96375; 99284; J2405; J7050

== ENCOUNTER → 2021-06-11 | Day surgery (SDC) | payer MEDICARE ==
[~2021-06-11] MED LIST changes: +BENICAR20 MG PO; +COLACE100 MG PO; +FAMOTIDINE20 MG PO; +FLEET ENEMA133 ML PR; +GLUCAGON FOR INJ 1 MG VIAL ONE; +HYDRALAZINE HC100 MG PO; +LIDOCAINE HCL 2% LOCAL INJ 5 ML SDV VIAL INJ ONE; +MIRALAX17 GM PO; +NIFEDIPINE10 MG PO; +OMEPRAZOLE20 M2 PO; +PROPOFOL IV EMULSION 10 MG/ML 20 ML VIAL ONE; +SODIUM CHLORIDE 0.9% 500ML 500 ML ONE
[2021-06-11 10:55] LABS: BASOPHILS % 0.5 % (0.0-1.0); EOSINOPHILS # (AUTO) 0.1 (0.0-0.4); EOSINOPHILS % 0.9 % (0.0-6.0); HEMATOCRIT 40.6 % (34.2-44.1); HEMOGLOBIN 13.6 g/dL (12.0-16.0); LYMPHOCYTES # (AUTO) 0.7 (1.0-3.2); LYMPHOCYTES % 13.5 % (18.0-39.1); MEAN CORPUSCULAR HEMOGLOBIN 32.8 pg (28-32); MEAN CORPUSCULAR HGB CONC 33.5 g/dL (31-35); MEAN CORPUSCULAR VOLUME 97.8 fL (81-99); MONOCYTES # (AUTO) 0.5 (0.2-0.8); MONOCYTES % 9.1 % (4.4-11.3); NEUTROPHILS # (AUTO) 4.1 (2.1-6.9); NEUTROPHILS % 74.7 % (38.7-80.0); PLATELET COUNT 151 x10e3/uL (140-360); RED BLOOD COUNT 4.15 x10e6/uL (3.6-5.1); RED CELL DISTRIBUTION WIDTH 15.7 % (11.7-14.4)
[2021-06-11 11:05] LABS: INR 1.04; PROTHROMBIN TIME 14.3 seconds (11.9-14.5)
[2021-06-11 11:06] LABS: PARTIAL THROMBOPLASTIN TIME 28.2 seconds (23.8-35.5)
[2021-06-11 12:18] LABS: ANION GAP 17.9 mmol/L (8-16); CALCIUM 9.6 mg/dL (8.4-10.2); CREATININE, SERUM 4.91 mg/dL (0.57-1.11); POTASSIUM 3.9 mmol/L (3.5-5.1)
[2021-06-11 14:30] VITALS: BP 132/47
== END | disposition home or self-care (01) ==
LOC: OR 08:00
PROVIDERS: ATTEND Internal Medicine Gastroenterology
DX: K59.09 Other constipation (principal); D12.2 Benign neoplasm of ascending colon; D12.4 Benign neoplasm of descending colon; D12.5 Benign neoplasm of sigmoid colon; K29.50 Unspecified chronic gastritis without bleeding; K22.89 Other specified disease of esophagus; K57.30 Diverticulosis of large intestine without perforation or abscess without bleeding; K21.9 Gastro-esophageal reflux disease without esophagitis; Z71.3 Dietary counseling and surveillance; I25.10 Atherosclerotic heart disease of native coronary artery without angina pectoris; I25.2 Old myocardial infarction; E11.22 Type 2 diabetes mellitus with diabetic chronic kidney disease; I13.2 Hypertensive heart and chronic kidney disease with heart failure and with stage 5 chronic kidney disease, or end stage renal disease; N18.6 End stage renal disease; I50.9 Heart failure, unspecified; Z99.2 Dependence on renal dialysis; Z88.6 Allergy status to analgesic agent; Z01.810 Encounter for preprocedural cardiovascular examination; Z01.812 Encounter for preprocedural laboratory examination; Z20.822 Contact with and (suspected) exposure to COVID-19; Z79.82 Long term (current) use of aspirin; Z79.4 Long term (current) use of insulin; Z79.899 Other long term (current) drug therapy; Z86.73 Personal history of transient ischemic attack (TIA), and cerebral infarction without residual deficits; Z95.5 Presence of coronary angioplasty implant and graft; Z86.718 Personal history of other venous thrombosis and embolism; Z80.0 Family history of malignant neoplasm of digestive organs
CPT/HCPCS: 36415; 43239; 45384; 45385; 80048; 82948; 85025; 85610; 85730; 93005; C9113; J1610; J2001; J2704; J7040; U0002; 43235; 45378

== ENCOUNTER → 2021-12-07 | Day surgery (SDC) | payer MEDICARE ==
[2021-12-03 09:17] LABS: BASOPHILS % 0.7 % (0.0-1.0); EOSINOPHILS # (AUTO) 0.1 (0.0-0.4); HEMATOCRIT 32.4 % (34.2-44.1); HEMOGLOBIN 10.4 g/dL (12.0-16.0); LYMPHOCYTES # (AUTO) 0.7 (1.0-3.2); LYMPHOCYTES % 14.4 % (18.0-39.1); MEAN CORPUSCULAR HEMOGLOBIN 32.5 pg (28-32); MEAN CORPUSCULAR HGB CONC 32.1 g/dL (31-35); MEAN CORPUSCULAR VOLUME 101.3 fL (81-99); MONOCYTES # (AUTO) 0.5 (0.2-0.8); MONOCYTES % 10.8 % (4.4-11.3); NEUTROPHILS # (AUTO) 3.2 (2.1-6.9); NEUTROPHILS % 71.7 % (38.7-80.0); PLATELET COUNT 113 x10e3/uL (140-360); RED CELL DISTRIBUTION WIDTH 17.2 % (11.7-14.4)
[2021-12-03 09:32] LABS: INR 1.05; PROTHROMBIN TIME 14.6 seconds (11.9-14.5)
[2021-12-03 09:46] LABS: ALBUMIN 3.5 g/dL (3.5-5.0); ALBUMIN/GLOBULIN RATIO 1.2 (0.8-2.0); ANION GAP 17.4 mmol/L (8-16); CREATININE, SERUM 5.06 mg/dL (0.57-1.11); POTASSIUM 4.4 mmol/L (3.5-5.1)
[~2021-12-07] MED LIST changes: +FENTANYL CITRATE/PF 100MCG/2 ML INJ ONE; -GLUCAGON FOR INJ 1 MG VIAL ONE; +HEPARIN SOD/SOD CHLORIDE 2,000 ML ONE; +HYDRALAZINE HCL 20 MG/ML VIAL ONE; +IOPAMIDOL 370 MG/ML 100 ML INFUS..BTL INJ ONE; +LIDOCAINE HCL 2% LOCAL 20 ML VIAL ONE; -LIDOCAINE HCL 2% LOCAL INJ 5 ML SDV VIAL INJ ONE; +MIDAZOLAM HCL 2 MG/2 ML VIAL ONE; +NITROGLYCERIN/D5W 200 MCG/ML 250 ML ONE; -PROPOFOL IV EMULSION 10 MG/ML 20 ML VIAL ONE; +SODIUM CHLORIDE 0.9% 1000ML 1,000 ML ONE; -SODIUM CHLORIDE 0.9% 500ML 500 ML ONE
== END | disposition home or self-care (01) ==
LOC: CATH LAB 15:03
PROVIDERS: ATTEND Internal Medicine Interventional Cardiology
DX: I25.119 Atherosclerotic heart disease of native coronary artery with unspecified angina pectoris (principal); R94.39 Abnormal result of other cardiovascular function study; N18.6 End stage renal disease; Z01.812 Encounter for preprocedural laboratory examination; Z20.822 Contact with and (suspected) exposure to COVID-19; Z79.4 Long term (current) use of insulin; Z79.82 Long term (current) use of aspirin; Z79.899 Other long term (current) drug therapy
CPT/HCPCS: 0223U; 36415 ×2; 76937; 80053; 82948; 83880; 85025; 85610; 93458; C1760; J0360; J2001; J2250; J3010; J7030; Q9967; 99152